=== PATIENT | male | born 1955 | race Caucasian/White ===

== ENCOUNTER 2017-05-25 22:56 | Emergency (ER) | payer OTHER ==
[2017-05-25 23:11] VITALS: RESP 18; TEMP 98.6
[2017-05-25] MEDS ORDERED: DIPH,PERTUS(ACELL)TETVAC-LF 0.5 ML VIAL IM ONE (23:23)
--- NOTE | 2017-05-25 23:23 | ED ---
General Adult HPI - General Chief complaint: Alcohol Stated complaint: ETOH,fall Time Seen by Provider: 05/25/17 22:58 Source: EMS, RN notes reviewed Mode of arrival: EMS Limitations: no limitations - History of Present Illness Initial comments: 62-year-old male presents to the emergency department with a chief complaint of alcohol intoxication fall. He does not know how he fell he believes that he has fallen. He denies any other injury he denies any pain at this time. Patient appears intoxicated he is a poor historian. He denies any pain or discomfort he denies any complaints. Patient denies any recent fever, chills, shortness of breath, chest pain, back pain, abdominal pain, nausea vomiting, numbness or tingling, dysuria or hematuria, constipation or diarrhea, headaches or visual changes, or any other current symptoms. - Related Data Home Medications Medication Instructions Recorded Confirmed Benztropine Mesylate 1 mg PO HS 12/10/13 12/11/15 Niacin [Niacin ER] 1,000 mg PO HS 12/10/13 12/11/15 Primidone [Mysoline] 50 mg PO BID 12/10/13 12/11/15 risperiDONE 3 mg PO HS 12/10/13 12/11/15 Thiamine [Vitamin B-1] 100 mg PO DAILY 12/27/14 12/11/15 Ferrous Sulfate [Feosol] 325 mg PO DAILY 12/11/15 12/11/15 Allergies Allergy/AdvReac Type Severity Reaction Status Date / Time No Known Allergies Allergy Verified 05/25/17 23:09 Review of Systems ROS Statement: Those systems with pertinent positive or pertinent negative responses have been documented in the HPI. ROS Other: All systems not noted in ROS Statement are negative. Past Medical History Past Medical History: Hyperlipidemia Additional Past Medical History / Comment(s): Parkinson's, ETOH abused, smoker History of Any Multi-Drug Resistant Organisms: None Reported Past Surgical History: No Surgical Hx Reported Past Anesthesia/Blood Transfusion Reactions: No Reported Reaction Past Psychological History: Bipolar, Schizophrenia Smoking Status: Current every day smoker Past Alcohol Use History: Abuse, Daily, Heavy Past Drug Use History: Marijuana - Past Family History Father History Unknown: Yes Mother History Unknown: Yes Brother(s) Family Medical History: No Reported History Sister(s) Family Medical History: No Reported History General Exam Limitations: no limitations General appearance: alert, appears intoxicated Head exam: Present: other (Forehead laceration of 1 cm) Eye exam: Present: normal appearance, PERRL, EOMI. Absent: scleral icterus, conjunctival injection, periorbital swelling ENT exam: Present: normal exam, mucous membranes moist, other (Patient appears to have a lip laceration to the center of the lower lip) Neck exam: Present: normal inspection. Absent: tenderness, meningismus, lymphadenopathy Respiratory exam: Present: normal lung sounds bilaterally. Absent: respiratory distress, wheezes, rales, rhonchi, stridor Cardiovascular Exam: Present: regular rate, normal rhythm, normal heart sounds. Absent: systolic murmur, diastolic murmur, rubs, gallop, clicks Neurological exam: Present: alert Psychiatric exam: Present: normal affect, normal mood Skin exam: Present: warm, dry Course Vital Signs 05/25/17 23:01 Temperature 98.6 F Pulse Rate 84 Respiratory 18 Rate Blood Pressure 162/114 O2 Sat by Pulse 98 Oximetry - Reevaluation(s) Reevaluation #1: 05/26/17 01:19 Family is here at bedside and willing to take the patient home. We discussed what to watch for we did discuss return parameters were discussed they're taking medical legal risk for the patient. They stated they understood. Procedures - Procedures Initial comment: The skin was anesthetized with 1% lidocaine. The laceration was then cleansed with Betadine and irrigated with normal saline. The wound was inspected, and there was no evidence of injury to deep structures. No foreign body was noted in the wound. A total of 4 skin sutures were placed utilizing 6-0 nylon to a 2 cm laceration of the forehead The skin was anesthetized with 1% lidocaine. The laceration was then cleansed with Betadine and irrigated with normal saline. The wound was inspected, and there was no evidence of injury to deep structures. No foreign body was noted in the wound. A total of 4 skin sutures were placed utilizing 6-0 nylon to a 2 cm laceration of the right lower lip Medical Decision Making - Medical Decision Making 62-year-old male presents to the emergency department chief complaint of fall however the fall is on no name the patient is a poor historian. He does appear to have facial laceration. This time CAT scans were reviewed. We discussed results with family. This time patient underwent suture care. We discussed follow-up we discussed return parameters all the patient's and family's questions. We discussed nursing home. They stated the [facility] they are in agreement this plan. All questions have been answered. This time the patient will be discharged home. Disposition Clinical Impression: Alcohol intoxication, Forehead laceration, Lip laceration, Head injury Disposition: HOME SELF-CARE Condition: Stable Instructions: Alcohol Intoxication (ED), Head Injury (ED), Care For Your Stitches (ED) Additional Instructions: Please use medication as discussed. Please follow up with family doctor if symptoms have not improved over the next two days. Please return to the emergency room if your symptoms increase or worsen or for any other concerns. Please return to the emergency room in 8-10 days to have sutures removed. Please leave wound covered for the first 24-48 hours and then leave open to air after that time. Please use clean soap and water to clean the suture area to prevent scabbing over the top of your sutures. Please watch for any signs of infection which may include but not limited to increased pain, swelling, redness , fever or chills. Please return to the emergency room if any signs of infection do occur. Please return to the emergency room for any other concerns or complications. Referrals: Vinicio Avila DO [Primary Care Provider] - 1-2 days Time of Disposition: 01:19
--- NOTE | 2017-05-25 23:52 | CT ---
EXAMINATION TYPE: CT brain gely singh DATE OF EXAM: 05/25/2017 COMPARISON: NONE HISTORY: fall, ETOH CT DLP: head-1748.60 body-493.70 mGycm Automated exposure control for dose reduction was used. TECHNIQUE: CT scan of the head and cervical spine are performed without contrast. FINDINGS: There is cerebral cortical atrophy. There is no mass effect nor midline shift. There is n o sign of intracranial hemorrhage. The calvarium is intact. Cervical vertebra have normal alignment. There is hypertrophic anterior spurring from C5 to T1. Poste rior elements are intact. There is multilevel hypertrophic facet arthropathy. There is no evidence of a fracture. There is fusion anomaly of C2 and C3 vertebral body. IMPRESSION: Cerebral atrophy. No acute intracranial abnormality. No change compared to 12/11/2015. Mild multilevel spondylosis in the cervical spine. No fracture.
--- NOTE | 2017-05-25 23:53 | CT ---
EXAMINATION TYPE: CT facial bones wo con DATE OF EXAM: 05/25/2017 COMPARISON: NONE HISTORY: fall, ETOH CT DLP: head-1748.60 body-493.70 mGycm Automated exposure control for dose reduction was used. TECHNIQUE: CT scan of the sinuses is performed without contrast, axial images are obtained, coronal r eformatted images are also reviewed. FINDINGS: There is bilateral patency of the ostiomeatal complex. There is fairly normal development a nd aeration of the paranasal sinuses. There is no evidence of a blowout fracture. Orbital margins are intact. The maxilla is intact. The mandibular ring is intact. Nasal bone appears intact. Zygomatic a rches appear normal. IMPRESSION: Negative CT scan of the facial bones. No evidence of traumatic injury.
[2017-05-26 01:56] VITALS: BP 170/94; PULSE 91
== END 2017-05-26 01:52 | disposition home or self-care (01) ==
LOC: EC 22:56
DX: S01.81XA Laceration without foreign body of other part of head, initial encounter (principal); S01.511A Laceration without foreign body of lip, initial encounter; F10.129 Alcohol abuse with intoxication, unspecified; G20 Parkinson's disease; F20.9 Schizophrenia, unspecified; F31.9 Bipolar disorder, unspecified; F17.200 Nicotine dependence, unspecified, uncomplicated; Z79.899 Other long term (current) drug therapy; Z23 Encounter for immunization; W19.XXXA Unspecified fall, initial encounter; Y92.009 Unspecified place in unspecified non-institutional (private) residence as the place of occurrence of the external cause
CPT/HCPCS: 12013; 70450; 70486; 72125; 82075; 90471; 90715; 99284

== ENCOUNTER 2017-08-25 19:35 | Emergency (ER) | payer OTHER ==
[2017-08-25 19:53] VITALS: BP 118/71; TEMP 98.2
[2017-08-25 20:18] VITALS: PULSE 85
[2017-08-25 20:26] LABS: Basophils % (A) 0 %; Eosinophils # (A) 0.1 k/uL (0-0.7); Eosinophils % (A) 1 %; HCT 44.6 % (39.0-53.0); HGB 15.6 gm/dL (13.0-17.5); Lymphocytes # (A) 1.7 k/uL (1.0-4.8); Lymphocytes % (A) 18 %; MCH 31.7 pg (25.0-35.0); MCHC 34.9 g/dL (31.0-37.0); MCV 90.9 fL (80.0-100.0); Mean Platelet Volume 7.4; Monocytes # (A) 0.6 k/uL (0-1.0); Monocytes % (A) 6 %; Neutrophils # (A) 6.8 k/uL (1.3-7.7); Neutrophils % (A) 72 %; Platelet Count 236 k/uL (150-450); RDW 13.3 % (11.5-15.5); WBC 9.4 k/uL (3.8-10.6)
[2017-08-25 20:34] LABS: Anion Gap 16 mmol/L; Blood Urea Nitrogen 8 mg/dL (9-20); Calcium 9.2 mg/dL (8.4-10.2); Carbon Dioxide 23 mmol/L (22-30); Chloride 101 mmol/L (98-107); Glucose 99 mg/dL (74-99); Potassium 4.5 mmol/L (3.5-5.1); Sodium 140 mmol/L (137-145)
[2017-08-25 20:47] LABS: Alcohol 341 mg/dL
--- NOTE | 2017-08-25 21:39 | CT ---
EXAMINATION TYPE: CT brain gely singh DATE OF EXAM: 08/25/2017 COMPARISON: 05/25/2017 HISTORY: Fall. CT DLP: 1678.9 mGycm Automated exposure control for dose reduction was used. TECHNIQUE: CT scan of the head and cervical spine are performed without contrast. FINDINGS: There is mild cerebral cortical atrophy. There is no mass effect nor midline shift. There is no sign of intracranial hemorrhage. The calvarium is intact. The cervical vertebra have normal alignment. There is anterior spurring from C3 to C7. Posterior [place] ents are intact. There is multilevel mild hypertrophic facet arthropathy. The skull base is intact. IMPRESSION: Cerebral atrophy. No acute intracranial abnormality. Spondylotic changes in the cervical spine. No fracture. There is no adverse change compared to old CT scan.
[2017-08-25 21:43] VITALS: RESP 16
--- NOTE | 2017-08-25 23:27 | ED ---
General Adult HPI - General Chief complaint: Alcohol Stated complaint: ETOH Time Seen by Provider: 08/25/17 19:38 Source: patient, EMS Mode of arrival: EMS Limitations: altered mental status - History of Present Illness Initial comments: 62-year-old male with past medical history of alcohol abuse presented for evaluation of a cough intoxication with fall. His daughter states that she was with him when he had shaking/tremors however he was alert and oriented while this was happening. He then became unstable and fell to the ground. He hit the front of his head on the ground however there was no loss of consciousness. She called EMS in order to have him evaluated. It is tender also noted to have a broken furnace and there is concern for carbon monoxide poisoning. Patient states that he has been drinking alcohol daily for years however today he had twice as much as he normally does. He denies any other injuries or pain at this time. - Related Data Home Medications Medication Instructions Recorded Confirmed Benztropine Mesylate 1 mg PO HS 12/10/13 12/11/15 Niacin [Niacin ER] 1,000 mg PO HS 12/10/13 12/11/15 Primidone [Mysoline] 50 mg PO BID 12/10/13 12/11/15 risperiDONE 3 mg PO HS 12/10/13 12/11/15 Thiamine [Vitamin B-1] 100 mg PO DAILY 12/27/14 12/11/15 Ferrous Sulfate [Feosol] 325 mg PO DAILY 12/11/15 12/11/15 Allergies Allergy/AdvReac Type Severity Reaction Status Date / Time No Known Allergies Allergy Verified 08/25/17 23:15 Review of Systems ROS Statement: Those systems with pertinent positive or pertinent negative responses have been documented in the HPI. ROS Other: All systems not noted in ROS Statement are negative. Constitutional: Reports: other (Intoxicated). Denies: fever, chills Eyes: Denies: eye pain, eye discharge, vision change ENT: Denies: ear pain, throat pain Respiratory: Denies: cough, dyspnea Cardiovascular: Denies: chest pain, palpitations Endocrine: Denies: fatigue, polydipsia, polyuria Gastrointestinal: Denies: abdominal pain, nausea, vomiting Genitourinary: Denies: urgency, dysuria Musculoskeletal: Denies: back pain, arthralgia, myalgia Skin: Reports: lesions (Abrasion to the right side of the forehead). Denies: rash Neurological: Denies: headache, weakness Psychiatric: Denies: anxiety, depression Hematological/Lymphatic: Denies: easy bleeding, easy bruising Past Medical History Past Medical History: Hyperlipidemia Additional Past Medical History / Comment(s): Parkinson's, ETOH abused, smoker History of Any Multi-Drug Resistant Organisms: None Reported Past Surgical History: No Surgical Hx Reported Past Anesthesia/Blood Transfusion Reactions: No Reported Reaction Past Psychological History: Bipolar, Schizophrenia Smoking Status: Current every day smoker Past Alcohol Use History: Abuse, Daily, Heavy Past Drug Use History: Marijuana - Past Family History Father History Unknown: Yes Mother History Unknown: Yes Brother(s) Family Medical History: No Reported History Sister(s) Family Medical History: No Reported History General Exam Limitations: altered mental status General appearance: alert, appears intoxicated Head exam: Present: atraumatic, normocephalic, normal inspection Eye exam: Present: normal appearance, PERRL, EOMI. Absent: scleral icterus, conjunctival injection, periorbital swelling ENT exam: Present: normal exam, mucous membranes moist Neck exam: Present: normal inspection. Absent: tenderness, meningismus, lymphadenopathy Respiratory exam: Present: normal lung sounds bilaterally. Absent: respiratory distress, wheezes, rales, rhonchi, stridor Cardiovascular Exam: Present: regular rate, normal rhythm, normal heart sounds. Absent: systolic murmur, diastolic murmur, rubs, gallop, clicks GI/Abdominal exam: Present: soft, normal bowel sounds. Absent: distended, tenderness, guarding, rebound, rigid Rectal exam: Present: deferred Extremities exam: Present: normal inspection, full ROM, normal capillary refill. Absent: tenderness, pedal edema, joint swelling, calf tenderness Back exam: Present: normal inspection, full ROM. Absent: tenderness Neurological exam: Present: alert, abnormal gait, other (Grossly intoxicated) Psychiatric exam: Present: normal affect, normal mood Skin exam: Present: warm, dry, intact, normal color. Absent: rash Course Vital Signs 08/25/17 08/25/17 08/25/17 19:50 20:18 21:41 Temperature 98.2 F Pulse Rate 85 Respiratory 20 16 Rate Blood Pressure 118/71 O2 Sat by Pulse 93 L Oximetry 08/25/17 23:14 Temperature Pulse Rate Respiratory 16 Rate Blood Pressure O2 Sat by Pulse Oximetry Medical Decision Making - Medical Decision Making 62-year-old alcoholic male presented for evaluation of fall from standing. On physical examination the patient is grossly intoxicated however alert and oriented and able to voice his excess drinking today and lack of any other injuries. Physical exam reveals mild abrasion to the right forehead hour no other acute findings. CT head and neck performed without intravenous hemorrhage or fractures. Labs revealed no significant abnormalities with the exception of his alcohol level which was greater than 340. His daughter presented at the same time and was tested for carbon monoxide and levels were negligible. Given that they both live in the same home and that he has been drinking excess alcohol compared to his normal baseline his level was not checked. His daughter came to the bedside and stated that she would take him to her brother's home where he would sleep on the couch given that they were advised to return to the home. Further given return instructions to come back to the ED if his symptoms should worsen or persist. The patient and his daughter acknowledged an understanding of all patient provided and agreed with this plan of care. - Lab Data Result diagrams: 08/25/17 20:10 08/25/17 20:10 Lab Results 08/25/17 08/25/17 Range/Units 20:10 20:10 WBC 9.4 (3.8-10.6) k/uL RBC 4.90 (4.30-5.90) m/uL Hgb 15.6 (13.0-17.5) gm/dL Hct 44.6 (39.0-53.0) % MCV 90.9 (80.0-100.0) fL MCH 31.7 (25.0-35.0) pg MCHC 34.9 (31.0-37.0) g/dL RDW 13.3 (11.5-15.5) % Plt Count 236 (150-450) k/uL Neutrophils % 72 % Lymphocytes % 18 % Monocytes % 6 % Eosinophils % 1 % Basophils % 0 % Neutrophils # 6.8 (1.3-7.7) k/uL Lymphocytes # 1.7 (1.0-4.8) k/uL Monocytes # 0.6 (0-1.0) k/uL Eosinophils # 0.1 (0-0.7) k/uL Basophils # 0.0 (0-0.2) k/uL Sodium 140 (137-145) mmol/L Potassium 4.5 (3.5-5.1) mmol/L Chloride 101 (98-107) mmol/L Carbon Dioxide 23 (22-30) mmol/L Anion Gap 16 mmol/L BUN 8 L (9-20) mg/dL Creatinine 0.62 L (0.66-1.25) mg/dL Est GFR (CKD-EPI)AfAm >90 (>60 ml/min/1.73 sqM) Est GFR (CKD-EPI)NonAf >90 (>60 ml/min/1.73 sqM) Glucose 99 (74-99) mg/dL Calcium 9.2 (8.4-10.2) mg/dL Serum Alcohol 341 mg/dL Disposition Clinical Impression: Alcohol intoxication, Abrasion, Fall Disposition: HOME SELF-CARE Condition: Stable Instructions: Alcohol Intoxication (ED) Referrals: Vinicio Avila DO [Primary Care Provider] - 1-2 days Time of Disposition: 23:17
== END 2017-08-25 23:30 | disposition home or self-care (01) ==
LOC: EC 19:35
DX: S00.81XA Abrasion of other part of head, initial encounter (principal); F10.129 Alcohol abuse with intoxication, unspecified; G20 Parkinson's disease; F20.9 Schizophrenia, unspecified; F31.9 Bipolar disorder, unspecified; F17.200 Nicotine dependence, unspecified, uncomplicated; Z79.899 Other long term (current) drug therapy; W18.00XA Striking against unspecified object with subsequent fall, initial encounter
CPT/HCPCS: 36415; 70450; 72125; 80048; 80320; 85025; 99284

== ENCOUNTER 2018-01-24 23:39 | Inpatient (IN) | payer OTHER ==
[2018-01-25] MEDS ORDERED: SODIUM CHLORIDE 0.9% 1,000 ML IV STA (00:07)
--- NOTE | 2018-01-25 00:12 | ED ---
Seizure HPI - General Chief Complaint: Seizure Stated Complaint: seizure Time Seen by Provider: 01/24/18 23:45 Source: patient, EMS Mode of arrival: EMS Limitations: altered mental status - History of Present Illness Initial Comments: 62-year-old male patient is brought in by EMS for evaluation after having a seizure. Patient does have history of chronic alcohol abuse and developed seizures about 6 months ago. Daughter reports that he has had 4 episodes of seizure activity since April. States that she came home from work today when she opened the door patient was on the floor shaking and appearing to be having a seizure. States that once is taking ceased patient did become alert and was able to answer her questions. Patient states that he probably fell down. Daughter reports that he appeared to have used the bathroom just shortly prior to her arrival home. Patient did lose bladder control. Patient also has a history of Parkinson's disease and has not had his medication for the last 3 days due to an issue with [facility]. Daughter states that his balance has been off recently and he has been falling. Patient is drowsy during exam and not a very good historian. Patient admits to drinking alcohol today. Daughter reports that he has been trying to cut down on drinking. She also reports that he did have follow up appointments with neurology who state he does not have epilepsy that his seizures were most likely related to alcohol. Patient denies any current headache, neck pain, back pain, chest pain, or shortness of breath. Patient denies any recent rash, fever , chills, abdominal pain, nausea, vomiting, diarrhea, constipation, numbness, tingling, dizziness, weakness, hematuria, dysuria, urinary urgency, urinary frequency, visual changes, or any other complaints. - Related Data Home Medications Medication Instructions Recorded Confirmed Benztropine Mesylate 1 mg PO HS 12/10/13 01/25/18 Niacin [Niacin ER] 1,000 mg PO HS 12/10/13 01/25/18 risperiDONE 3 mg PO HS 12/10/13 01/25/18 Thiamine [Vitamin B-1] 100 mg PO DAILY 12/27/14 01/25/18 Ferrous Sulfate [Feosol] 325 mg PO DAILY 12/11/15 01/25/18 Budesonide/Formoterol Fumarate 1 puff INHALATION RT-BID 08/25/17 08/25/17 [Symbicort 80-4.5 Mcg Inhaler] Cholecalciferol (Vitamin D3) 2,000 unit PO DAILY 08/25/17 01/25/18 [Vitamin D3] Primidone [Mysoline] 50 mg PO BID 01/25/18 01/25/18 Allergies Allergy/AdvReac Type Severity Reaction Status Date / Time No Known Allergies Allergy Verified 01/24/18 23:51 Review of Systems ROS Statement: Those systems with pertinent positive or pertinent negative responses have been documented in the HPI. ROS Other: All systems not noted in ROS Statement are negative. Past Medical History Past Medical History: Hyperlipidemia Additional Past Medical History / Comment(s): Parkinson's, ETOH abused, smoker History of Any Multi-Drug Resistant Organisms: None Reported Past Surgical History: No Surgical Hx Reported Past Anesthesia/Blood Transfusion Reactions: No Reported Reaction Past Psychological History: Bipolar, Schizophrenia Smoking Status: Current every day smoker Past Alcohol Use History: Abuse, Daily, Heavy Past Drug Use History: Marijuana - Past Family History Father History Unknown: Yes Mother History Unknown: Yes Brother(s) Family Medical History: No Reported History Sister(s) Family Medical History: No Reported History General Exam Limitations: altered mental status General appearance: alert, in no apparent distress, other (This is a thin appearing adult male who is quite disheveled. Patient's most strongly of urine. Vital signs upon presentation are temperature 97.5F, pulse 86, respirations 18, blood pressure 119/73, pulse ox 97% on room air.) Eye exam: Present: normal appearance, PERRL, EOMI. Absent: scleral icterus, conjunctival injection, nystagmus, periorbital swelling ENT exam: Present: normal exam, normal oropharynx, mucous membranes moist Neck exam: Present: normal inspection, full ROM. Absent: tenderness, meningismus, lymphadenopathy Respiratory exam: Present: normal lung sounds bilaterally. Absent: respiratory distress, wheezes, rales, rhonchi, stridor Cardiovascular Exam: Present: regular rate, normal rhythm, normal heart sounds. Absent: systolic murmur, diastolic murmur, rubs, gallop, clicks GI/Abdominal exam: Present: soft, normal bowel sounds. Absent: distended, tenderness, guarding, rebound, rigid Neurological exam: Present: alert, CN II-XII intact, other (Doesn't follow commands very well. Strength in all 4 extremities is 4/5.). Absent: oriented X3 (oriented x2) Psychiatric exam: Present: normal affect, normal mood Skin exam: Present: warm, dry, intact, normal color. Absent: rash Course Vital Signs 01/24/18 01/25/18 01/25/18 23:48 01:05 01:57 Temperature 97.5 F L 98.0 F Pulse Rate 86 82 77 Respiratory 18 19 16 Rate Blood Pressure 118/73 105/64 108/48 O2 Sat by Pulse 97 94 L 78 L Oximetry Medical Decision Making - Medical Decision Making 62-year-old nail patient presented to the emergency department today for evaluation after having what sounds like a seizure at home. Upon evaluation patient is somewhat disoriented and slow to respond to questions. Patient is otherwise neurologically intact. Labs reviewed and were unremarkable other than his alcohol level being 400. Drug screen was positive for THC. EKG showed normal sinus rhythm. CT brain and C-spine were performed due to patient expressing a fall, there are no acute findings per Patient will be admitted to the hospital for acute alcohol intoxication. A banana bag and Ativan protocol for alcohol withdrawal be provided. Patient has also been out of his primidone for the last 3 days, this has been restarted here. - Lab Data Result diagrams: 01/25/18 00:19 01/25/18 00:19 Lab Results 01/25/18 01/25/18 01/25/18 Range/Units 00:19 00:19 00:19 WBC 8.8 (3.8-10.6) k/uL RBC 4.79 (4.30-5.90) m/uL Hgb 14.9 (13.0-17.5) gm/dL Hct 46.2 (39.0-53.0) % MCV 96.5 (80.0-100.0) fL MCH 31.2 (25.0-35.0) pg MCHC 32.4 (31.0-37.0) g/dL RDW 14.0 (11.5-15.5) % Plt Count 188 (150-450) k/uL Neutrophils % 72 % Lymphocytes % 18 % Monocytes % 7 % Eosinophils % 1 % Basophils % 0 % Neutrophils # 6.3 (1.3-7.7) k/uL Lymphocytes # 1.6 (1.0-4.8) k/uL Monocytes # 0.6 (0-1.0) k/uL Eosinophils # 0.1 (0-0.7) k/uL Basophils # 0.0 (0-0.2) k/uL Sodium 139 (137-145) mmol/L Potassium 4.3 (3.5-5.1) mmol/L Chloride 107 (98-107) mmol/L Carbon Dioxide 19 L (22-30) mmol/L Anion Gap 13 mmol/L BUN 6 L (9-20) mg/dL Creatinine 0.50 L (0.66-1.25) mg/dL Est GFR (CKD-EPI)AfAm >90 (>60 ml/min/1.73 sqM) Est GFR (CKD-EPI)NonAf >90 (>60 ml/min/1.73 sqM) Glucose 84 (74-99) mg/dL Calcium 8.6 (8.4-10.2) mg/dL Total Bilirubin 0.4 (0.2-1.3) mg/dL AST 60 H (17-59) U/L ALT 40 (21-72) U/L Alkaline Phosphatase 81 (38-126) U/L Total Protein 6.9 (6.3-8.2) g/dL Albumin 4.1 (3.5-5.0) g/dL Urine Color Colorless Urine Appearance Clear (Clear) Urine pH 5.0 (5.0-8.0) Ur Specific [place] 1.002 (1.001-1.035) Urine Protein Negative (Negative) Urine Glucose (UA) Negative (Negative) Urine Ketones Negative (Negative) Urine Blood Negative (Negative) Urine Nitrite Negative (Negative) Urine Bilirubin Negative (Negative) Urine Urobilinogen <2.0 (<2.0) mg/dL Ur Leukocyte Esterase Negative (Negative) Urine Opiates Screen Not Detected (NotDetected) Ur Oxycodone Screen Not Detected (NotDetected) Urine Methadone Screen Not Detected (NotDetected) Ur Propoxyphene Screen Not Detected (NotDetected) Ur Barbiturates Screen Not Detected (NotDetected) U Tricyclic Antidepress Not Detected (NotDetected) Ur Phencyclidine Scrn Not Detected (NotDetected) Ur Amphetamines Screen Not Detected (NotDetected) U Methamphetamines Scrn Not Detected (NotDetected) U Benzodiazepines Scrn Not Detected (NotDetected) Urine Cocaine Screen Not Detected (NotDetected) U Marijuana (THC) Screen Detected H (NotDetected) Serum Alcohol 400 mg/dL - EKG Data -: EKG Interpreted by Me EKG Comments: EKG obtained at 0016 shows normal sinus rhythm with a ventricular rate of 76, OK interval 174, QR adventist 94, QT 398, QTC 447. No evidence of ST elevation or depression. - Radiology Data Radiology results: report reviewed, image reviewed CT of the head and cervical spine are performed without contrast. Report is reviewed in its entirety. Impression by Dr. Sanchez shows cerebral atrophy. No acute intracranial abnormality. No change. Mild spondylotic changes of the cervical spine. No fracture. Disposition Clinical Impression: Seizure, Alcohol intoxication Disposition: ADMITTED IP TO THIS [facility] Condition: Serious Decision to Admit Reason: Admit from EC Decision Date: 01/25/18 Decision Time: 01:13
[2018-01-25 00:28] LABS: Basophils % (A) 0 %; Eosinophils # (A) 0.1 k/uL (0-0.7); Eosinophils % (A) 1 %; HCT 46.2 % (39.0-53.0); HGB 14.9 gm/dL (13.0-17.5); Lymphocytes # (A) 1.6 k/uL (1.0-4.8); Lymphocytes % (A) 18 %; MCH 31.2 pg (25.0-35.0); MCHC 32.4 g/dL (31.0-37.0); MCV 96.5 fL (80.0-100.0); Mean Platelet Volume 7.9; Monocytes # (A) 0.6 k/uL (0-1.0); Monocytes % (A) 7 %; Neutrophils # (A) 6.3 k/uL (1.3-7.7); Neutrophils % (A) 72 %; Platelet Count 188 k/uL (150-450); RBC 4.79 m/uL (4.30-5.90); WBC 8.8 k/uL (3.8-10.6)
[2018-01-25 00:29] LABS: Appearance,Urine Clear (Clear); Bilirubin,Urine Negative (Negative); Blood,Urine Negative (Negative); Color,Urine Colorless; Glucose,Urine (UA) Negative (Negative); Ketones,Urine Negative (Negative); Leukocyte Esterase,Urine Negative (Negative); Nitrite,Urine Negative (Negative); Protein,Urine Negative (Negative); Specific Gravity,Urine 1.002 (1.001-1.035); Urobilinogen,Urine <2.0 mg/dL (<2.0)
[2018-01-25 00:39] LABS: ALT 40 U/L (21-72); AST 60 U/L (17-59); Albumin 4.1 g/dL (3.5-5.0); Alkaline Phosphatase 81 U/L (38-126); Anion Gap 13 mmol/L; Blood Urea Nitrogen 6 mg/dL (9-20); Calcium 8.6 mg/dL (8.4-10.2); Carbon Dioxide 19 mmol/L (22-30); Chloride 107 mmol/L (98-107); Glucose 84 mg/dL (74-99); Sodium 139 mmol/L (137-145); Total Bilirubin 0.4 mg/dL (0.2-1.3); Total Protein 6.9 g/dL (6.3-8.2)
[2018-01-25 00:43] LABS: Amphetamine Screen,Urine Not Detected (NotDetected); Barbiturate Screen,Urine Not Detected (NotDetected); Benzodiazepines Screen,Urine Not Detected (NotDetected); Cocaine Screen,Urine Not Detected (NotDetected); Methadone Screen, Urine Not Detected (NotDetected); Opiate Screen,Urine Not Detected (NotDetected); Oxycodone Screen, Urine Not Detected (NotDetected); Phencyclidine Screen,Urine Not Detected (NotDetected); Tricyclic Antidepressant,Urine Not Detected (NotDetected); Urn Cannabinoid Scrn Detected (NotDetected)
[2018-01-25 00:49] LABS: Potassium 4.3 mmol/L (3.5-5.1)
[2018-01-25 00:50] LABS: Alcohol 400 mg/dL
--- NOTE | 2018-01-25 00:55 | CT ---
EXAMINATION TYPE: CT brain gely singh DATE OF EXAM: 01/25/2018 COMPARISON: August 25, 2017 HISTORY: seizure CT DLP: 1395.70 mGycm Automated exposure control for dose reduction was used. TECHNIQUE: CT scan of the head and cervical spine are performed without contrast. FINDINGS: There is cerebral cortical atrophy. There is no mass effect nor midline shift. There is n o sign of intracranial hemorrhage. The calvarium is intact. Cervical vertebra have normal alignment. There is spurring anteriorly from C4 to C7. There is hypertr ophic mild multilevel facet arthropathy. The skull base is intact. There is no evidence of a fracture . There is fusion anomaly of C2 and C3 vertebra. IMPRESSION: Cerebral atrophy. No acute intracranial abnormality. No change. Mild spondylotic changes in the cervical spine. No fracture.
[2018-01-25] MEDS ORDERED: NALOXONE 0.4 MG/ML 1 ML VIAL IV PRN (01:11)
[2018-01-25] MEDS ORDERED: THIAMINE 100 MG/ML 2 ML VIAL IM STA (01:12)
[2018-01-25] MEDS ORDERED: SODIUM CHLORIDE 0.9% 1,000 ML with MVI, ADULT NO.4 WITH VIT K 10 ML, THIAMINE 100 MG, F... IV ONE ×4 (01:30)
[2018-01-25] MEDS: CHOLECALCIFEROL 1,000 UNIT TAB PO SCH (07:50)
[2018-01-25] MEDS: PRIMIDONE 50 MG TAB PO SCH ×2 (07:51→20:36)
[2018-01-25] MEDS ORDERED: THIAMINE 100 MG TAB PO SCH (09:00)
[2018-01-25] MEDS ORDERED: FERROUS SULFATE 325 MG TAB PO SCH (09:00)
[2018-01-25] MEDS: LORazepam 2 MG/ML INJ IV PRN ×5 (10:01→15:21)
[2018-01-25 11:11] VITALS: BMI 24.3
[2018-01-25] MEDS ORDERED: IPRATROPIUM-ALBUTEROL 3 ML NEB INHALATION PRN (11:33)
--- NOTE | 2018-01-25 12:14 | P.HPIM ---
History of Present Illness 62-year-old male was brought in by the daughter to ER with concerns of seizure. Patient is alcohol intoxicated with 400. At this level of alcohol my suspicion is low that patient had a seizure had extensive discussion with the daughter. Patient apparently was on floor was tremulous unsure whether he was unconscious at the time but patient the was arousable and the was awake when she tried to wake him up. Patient doesn't have any bowel incontinence or tongue biting. May have had bladder incontinence. Patient drinks quite a bit although he sees he drinks only 24 ounces 3 beers a day as per the daughter he drinks quite a bit has been drinking for a long time. I discussed the patient patient to doesn't want to quit alcohol patient does smokes a pack a day does have wheezing minimal COPD exacerbation patient was started on inhaled steroids in the inhalational treatments. Along with doxycycline. Patient is already having withdrawals. He as he is not willing to quit alcohol I would normally's discharge him but because of his respiratory to status and wheezing on exam and patient looks quite lethargic because of these reasons, patient will stay in the hospital received breathing treatments inhaled steroids will treat him with medical for withdrawals extensive counseling to the family was provided and family asked to provide support after his discharge regarding his alcohol. Patient doesn't have any fever chills. I will obtain a chest x-ray to make sure there is no aspiration pneumonia, patient doesn't have any leukocytosis no fever Review of Systems REVIEW OF SYSTEMS: CONSTITUTIONAL: No fever, no malaise, no fatigue. HEENT: No recent visual problems or hearing problems. Denied any sore throat. CARDIOVASCULAR: No chest pain, orthopnea, PND, no palpitations, no syncope. PULMONARY: No shortness of breath, no cough, no hemoptysis. GASTROINTESTINAL: No diarrhea, no nausea, no vomiting, no abdominal pain. Normoactive bowel sounds. NEUROLOGICAL: No headaches, no weakness, no numbness. HEMATOLOGICAL: Denies any bleeding or petechiae. GENITOURINARY: Denies any burning micturition, frequency, or urgency. MUSCULOSKELETAL/RHEUMATOLOGICAL: Denies any joint pain, swelling, or any muscle pain. ENDOCRINE: Denies any polyuria or polydipsia. The rest of the 14-point review of systems is negative. Past Medical History Past Medical History: Hyperlipidemia Additional Past Medical History / Comment(s): Parkinson's, ETOH abused, smoker History of Any Multi-Drug Resistant Organisms: None Reported Past Surgical History: Appendectomy Additional Past Surgical History / Comment(s): Cyst removal from right wrist Past Anesthesia/Blood Transfusion Reactions: No Reported Reaction Past Psychological History: Bipolar, Schizophrenia Smoking Status: Current every day smoker Past Alcohol Use History: Abuse, Daily, Heavy Past Drug Use History: Marijuana - Past Family History Father History Unknown: Yes Mother History Unknown: Yes Brother(s) Family Medical History: No Reported History Sister(s) Family Medical History: No Reported History Medications and Allergies Home Medications Medication Instructions Recorded Confirmed Type Benztropine Mesylate 1 mg PO HS 12/10/13 01/25/18 History Niacin [Niacin ER] 1,000 mg PO HS 12/10/13 01/25/18 History risperiDONE 3 mg PO HS 12/10/13 01/25/18 History Thiamine [Vitamin B-1] 100 mg PO DAILY 12/27/14 01/25/18 History Ferrous Sulfate [Feosol] 325 mg PO DAILY 12/11/15 01/25/18 History Budesonide/Formoterol Fumarate 1 puff INHALATION RT-BID 08/25/17 08/25/17 History [Symbicort 80-4.5 Mcg Inhaler] Cholecalciferol (Vitamin D3) 2,000 unit PO DAILY 08/25/17 01/25/18 History [Vitamin D3] Primidone [Mysoline] 50 mg PO BID 01/25/18 01/25/18 History Allergies Allergy/AdvReac Type Severity Reaction Status Date / Time No Known Allergies Allergy Verified 01/24/18 23:51 Physical Exam Vitals: Vital Signs Temp Pulse Pulse Resp BP BP Pulse Ox 01/25/18 11:11 94 16 01/25/18 05:00 97.3 F L 123 H 16 97/52 91 L 01/25/18 03:25 97.6 F 88 20 105/58 96 01/25/18 01:57 98.0 F 77 16 108/48 97 01/25/18 01:05 82 19 105/64 94 L 01/24/18 23:48 97.5 F L 86 18 118/73 97 Intake and Output 01/24/18 01/25/18 01/25/18 22:59 06:59 14:59 Intake Total 400 Output Total 1000 1000 Balance -1000 -600 Intake: Oral 400 Output: Urine 1000 1000 Other: Voiding Method Urinal Weight 72.575 kg 72.575 kg -Alcoholic withdrawal: Patient is on CIWA Ativan protocol. Patient is on seizure precautions IV fluids thiamine multivitamin supplementation patient is here via score is very high. Patient may need to be transferred to ICU. -COPD with minimal exacerbation possible tracheal bronchitis patient is wheezing on exam patient was started on inhaled steroids and inhalational treatments. -Possible seizure : suspicion is low that patient had a seizure episode patient was diagnosed with all call withdrawal seizures in the past he cannot obtain EEG when his so tremulous and when he is having all call withdraws. -Nicotine abuse: Counseling was provided -Rule out aspiration pneumonia: Will obtain a chest x-ray -History of psychosis patient is on risperidone benztropine will be discontinued with concern for seizures -Tachycardia seconded all call withdrawal. Results CBC & Chem 7: 01/25/18 00:19 01/25/18 00:19 Labs: Abnormal Lab Results - Last 24 Hours (Table) 01/25/18 01/25/18 Range/Units 00:19 00:19 Carbon Dioxide 19 L (22-30) mmol/L BUN 6 L (9-20) mg/dL Creatinine 0.50 L (0.66-1.25) mg/dL AST 60 H (17-59) U/L U Marijuana (THC) Screen Detected H (NotDetected) Thrombosis Risk Factor Assmnt - Choose All That Apply Any of the Below Risk Factors Present?: No Other Risk Factors: Yes Each Risk Factor Represents 2 Points: Age 61-74 years Thrombosis Risk Factor Assessment Total Risk Factor Score: 2 Thrombosis Risk Factor Assessment Level: Low Risk
--- NOTE | 2018-01-25 12:32 | XR ---
EXAMINATION TYPE: XR chest 1V DATE OF EXAM: 01/25/2018 COMPARISON: 12/11/2015 HISTORY: 62-year-old male rule out aspiration, cough and congestion TECHNIQUE: Single frontal view of the chest is obtained. FINDINGS: Heart normal size. Mild elongation thoracic aorta. Mild peribronchial cuffing and mild interstitial prominence. No consolidation or pleural effusion. There appears to be a healed fracture deformity of the left lateral seventh rib but possible acute jasmine bacute fracture of the left posterolateral eighth rib. IMPRESSION: 1. New peribronchial cuffing and interstitial prominence. Correlate for etiologies like bronchitis or asthma. 2. Clinically correlate. There seems to be an acute or subacute fracture of the posterolateral left e ighth rib.
[2018-01-25] MEDS: PANTOPRAZOLE 40 MG/10 ML VIAL IVP SCH (13:08)
[2018-01-25] MEDS: SODIUM CHLORIDE 0.9% 1,000 ML IV SCH ×2 (13:08→23:00)
[2018-01-25] MEDS: DOXYCYCLINE MONOHYDRATE 100 MG CAPSULE PO SCH ×2 (13:08→20:36)
[2018-01-25 14:26] LABS: Glucose,Whole Blood 135 mg/dL (75-99)
--- NOTE | 2018-01-25 14:59 | P.CNPUL ---
History of Present Illness Consult date: 01/25/18 Requesting physician: Spencer Tay Reason for consult: other (Alcohol withdrawal) Chief complaint: Concerns about seizures History of present illness: This is a 62-year-old white male, heavy alcohol drinker, known history of alcohol abuse, smoker, history of Parkinson's disease, hyperlipidemia, patient was admitted on 01/25/2018 with acute alcohol intoxication, and EMS brought him into the ER after having a seizure. Patient is known to have history of seizures, his last seizure was 6 months ago. His seizure this time was witnessed by his daughter, patient was noted to be on the floor shaking, confused, unable to answer any questions, and supposedly developed some post ictal phase. Patient was also noted to be incontinent of urine. Patient himself is not a great historian upon presentation, but denies any specific complaint during my evaluation. Patient was initially admitted to a regular medical floor, however since he was receiving a significant amount of Ativan since admission for alcohol withdrawal, his admitting physician felt it would be best to monitor him in the ICU. I evaluated the patient in the ICU, presently asymptomatic, calm, not in any form of distress. Denies any headache no blurred vision no dizziness no nausea no vomiting no abdominal pain no melena no hematemesis no dysuria and no frequency no urgency. Review of Systems 14 point review of systems obtained, refer to HPI otherwise remaining systems are Past Medical History Past Medical History: Hyperlipidemia Additional Past Medical History / Comment(s): Parkinson's, ETOH abused, smoker History of Any Multi-Drug Resistant Organisms: None Reported Past Surgical History: Appendectomy Additional Past Surgical History / Comment(s): Cyst removal from right wrist Past Anesthesia/Blood Transfusion Reactions: No Reported Reaction Past Psychological History: Bipolar, Schizophrenia Smoking Status: Current every day smoker Past Alcohol Use History: Abuse, Daily, Heavy Past Drug Use History: Marijuana - Past Family History Father History Unknown: Yes Mother History Unknown: Yes Brother(s) Family Medical History: No Reported History Sister(s) Family Medical History: No Reported History Medications and Allergies Home Medications Medication Instructions Recorded Confirmed Type Benztropine Mesylate 1 mg PO HS 12/10/13 01/25/18 History Niacin [Niacin ER] 1,000 mg PO HS 12/10/13 01/25/18 History risperiDONE 3 mg PO HS 12/10/13 01/25/18 History Thiamine [Vitamin B-1] 100 mg PO DAILY 12/27/14 01/25/18 History Ferrous Sulfate [Feosol] 325 mg PO DAILY 12/11/15 01/25/18 History Budesonide/Formoterol Fumarate 2 puff INHALATION RT-BID 08/25/17 01/25/18 History [Symbicort 80-4.5 Mcg Inhaler] Cholecalciferol (Vitamin D3) 2,000 unit PO DAILY 08/25/17 01/25/18 History [Vitamin D3] Primidone [Mysoline] 50 mg PO BID 01/25/18 01/25/18 History Allergies Allergy/AdvReac Type Severity Reaction Status Date / Time No Known Allergies Allergy Verified 01/25/18 12:35 Physical Exam Vitals: Vital Signs Temp Pulse Pulse Resp BP BP Pulse Ox 01/25/18 14:25 98.6 F 90 23 134/75 95 01/25/18 11:11 94 16 01/25/18 05:00 97.3 F L 123 H 16 97/52 91 L 01/25/18 03:25 97.6 F 88 20 105/58 96 01/25/18 01:57 98.0 F 77 16 108/48 97 01/25/18 01:05 82 19 105/64 94 L 01/24/18 23:48 97.5 F L 86 18 118/73 97 Intake and Output 01/24/18 01/25/18 01/25/18 22:59 06:59 14:59 Intake Total 2440 Output Total 1000 1000 Balance -1000 1440 Intake: Intake, IV Titration 1000 Amount Sodium Chloride 0.9% 1, 1000 000 ml @ 100 mls/hr IV . Q10H7M ONE with Mvi, Adult No.4 with Vit K 10 ml with Thiamine 100 mg with Folic Acid 1 mg Rx#: [id number] Oral 1440 Output: Urine 1000 1000 Other: Voiding Method Urinal Weight 72.575 kg 72.575 kg Physical Exam: Revealed a 62-year-old white male in no distress. Head: Atraumatic, normocephalic. HEENT:[Neck is supple.] [No neck masses.] [No thyromegaly.] [No JVD.] PERRLA, EOMI, no icterus. Chest: [Clear throughout, no crackles, no rhonchi, no wheezes.] Cardiac Exam: [Normal S1 and S2, no S3 gallop, no murmur.] Abdomen: [Soft, nontender, no megaly, no rebound, no guarding, normal bowel sounds.] Extremities: [No clubbing, no edema, no cyanosis.] Neurological Exam: [No focal neurologic deficit.] Alert oriented 3. Lymphatics: No lymphadenopathy. Results - Laboratory Findings CBC and BMP: 01/25/18 00:19 01/25/18 00:19 Abnormal lab findings: Abnormal Labs 01/25/18 01/25/18 01/25/18:19 00:19 14:25 Carbon Dioxide 19 L BUN 6 L Creatinine 0.50 L POC Glucose (mg/dL) 135 H AST 60 H U Marijuana (THC) Screen Detected H - Diagnostic Findings Chest x-ray: image reviewed (No evidence of active disease, questionable subacute fracture of the posterior lateral left eighth rib) Assessment and Plan Assessment: Impression: 1 poorly controlled seizures, known history of seizure disorder. May or may not be related to alcohol or alcohol withdrawal. 2 suspect early alcohol withdrawal. 3 history of alcohol abuse and alcoholism. Recommendation: Agree with the present treatment plan, agree with monitoring the patient in the ICU, consider neurological evaluation for his seizures. We' ll continue to follow. Time with Patient: Greater than 30
[2018-01-25] MEDS ORDERED: ACETAMINOPHEN TAB 325 MG TAB PO PRN (15:03)
[2018-01-25] MEDS: IPRATROPIUM-ALBUTEROL 3 ML NEB INHALATION SCH ×3 (16:02→20:49)
[2018-01-25] MEDS: THIAMINE 100 MG TAB PO SCH (16:34)
[2018-01-25] MEDS ORDERED: SYMBICORT 160-4.5 MCG INHALER INHALATION ONE (19:19)
[2018-01-25] MEDS: NIACIN TR 500 MG CAPSULE.ER PO SCH (20:36)
[2018-01-25] MEDS: risperiDONE 1 MG TAB PO SCH (20:36)
[2018-01-25] MEDS: SYMBICORT 160-4.5 MCG INHALER INHALATION SCH (20:49)
[2018-01-25] MEDS ORDERED: BENZTROPINE MESYLATE 1 MG TAB PO SCH (21:00)
[2018-01-26 05:50] LABS: Basophils % (A) 0 %; Eosinophils # (A) 0.1 k/uL (0-0.7); Eosinophils % (A) 1 %; HCT 38.4 % (39.0-53.0); HGB 12.6 gm/dL (13.0-17.5); Lymphocytes # (A) 1.2 k/uL (1.0-4.8); Lymphocytes % (A) 15 %; MCH 31.8 pg (25.0-35.0); MCHC 32.8 g/dL (31.0-37.0); Mean Platelet Volume 8.2; Monocytes # (A) 0.5 k/uL (0-1.0); Monocytes % (A) 6 %; Neutrophils # (A) 5.9 k/uL (1.3-7.7); Neutrophils % (A) 76 %; Platelet Count 143 k/uL (150-450); RBC 3.96 m/uL (4.30-5.90); RDW 13.7 % (11.5-15.5); WBC 7.7 k/uL (3.8-10.6)
[2018-01-26 06:02] LABS: ALT 42 U/L (21-72); AST 42 U/L (17-59); Albumin 3.1 g/dL (3.5-5.0); Alkaline Phosphatase 76 U/L (38-126); Anion Gap 4 mmol/L; Blood Urea Nitrogen 7 mg/dL (9-20); Carbon Dioxide 24 mmol/L (22-30); Chloride 106 mmol/L (98-107); Glucose 91 mg/dL (74-99); Phosphorus 3.4 mg/dL (2.5-4.5); Sodium 134 mmol/L (137-145); Total Bilirubin 0.7 mg/dL (0.2-1.3); Total Protein 5.5 g/dL (6.3-8.2)
--- NOTE | 2018-01-26 07:36 | XR ---
EXAMINATION TYPE: XR chest 1V portable DATE OF EXAM: 01/26/2018 Comparison: 01/25/2018 Clinical History: 62-year-old male shortness of breath Findings: Heart normal size. Mild elongation/ectasia of the thoracic aorta. Mild diffuse interstitial prominenc e with mild peribronchial cuffing persists. No consolidation or pleural effusion. The demonstrated fi ndings suspicious for a acute to subacute left posterolateral eighth rib fracture. Impression: Similar interstitial changes which can be seen with bronchitis or asthma. Again, possible acute or jasmine bacute fracture of the left posterolateral eighth rib.
[2018-01-26] MEDS: PRIMIDONE 50 MG TAB PO SCH ×2 (08:33→22:24)
[2018-01-26] MEDS: PANTOPRAZOLE 40 MG/10 ML VIAL IVP SCH (08:33)
[2018-01-26] MEDS: CHOLECALCIFEROL 1,000 UNIT TAB PO SCH (08:34)
[2018-01-26] MEDS: SYMBICORT 160-4.5 MCG INHALER INHALATION SCH ×2 (08:34→20:46)
[2018-01-26] MEDS: DOXYCYCLINE MONOHYDRATE 100 MG CAPSULE PO SCH ×2 (08:34→21:45)
[2018-01-26] MEDS: IPRATROPIUM-ALBUTEROL 3 ML NEB INHALATION SCH ×4 (08:34→20:46)
[2018-01-26] MEDS: SODIUM CHLORIDE 0.9% 1,000 ML IV SCH ×2 (08:38→19:26)
[2018-01-26] MEDS: FERROUS SULFATE 325 MG TAB PO SCH (12:29)
[2018-01-26] MEDS: THIAMINE 100 MG TAB PO SCH ×2 (12:29→18:06)
--- NOTE | 2018-01-26 13:03 | P.PN ---
Subjective Progress Note Date: 01/26/18 Principal diagnosis: Alcohol withdrawal and possible seizure This is a 62-year-old white male, heavy alcohol drinker, known history of alcohol abuse, smoker, history of Parkinson's disease, hyperlipidemia, patient was admitted on 01/25/2018 with acute alcohol intoxication, and EMS brought him into the ER after having a seizure. Patient is known to have history of seizures, his last seizure was 6 months ago. His seizure this time was witnessed by his daughter, patient was noted to be on the floor shaking, confused, unable to answer any questions, and supposedly developed some post ictal phase. Patient was also noted to be incontinent of urine. Patient himself is not a great historian upon presentation, but denies any specific complaint during my evaluation. Patient was initially admitted to a regular medical floor, however since he was receiving a significant amount of Ativan since admission for alcohol withdrawal, his admitting physician felt it would be best to monitor him in the ICU. I evaluated the patient in the ICU, presently asymptomatic, calm, not in any form of distress. Denies any headache no blurred vision no dizziness no nausea no vomiting no abdominal pain no melena no hematemesis no dysuria and no frequency no urgency. Patient was reevaluated today on 01/26/2018, doing well, very calm, asymptomatic, no seizure activity noted, patient is on the alcohol withdrawal protocol. Labs including CBC basic metabolic profile liver profile were all reviewed and noted. Objective - Vital Signs Vital signs: Vital Signs Temp 98.0 F 01/26/18 12:13 Pulse 76 01/26/18 12:27 Resp 18 01/26/18 12:13 BP 155/88 01/26/18 12:13 Pulse Ox 97 01/26/18 12:13 Intake & Output 01/25/18 01/26/18 01/26/18 18:59 06:59 18:59 Intake Total 2840 2020 600 Output Total 1275 1800 650 Balance 1565 220 -50 Weight 73.3 kg 74.3 kg 74.3 kg Intake: IV 400 1300 600 Sodium Chloride 0.9% 1, 400 1300 600 000 ml @ 100 mls/hr IV . Q10H [facility] Rx#:[id number] Intake, IV Titration 1000 Amount Sodium Chloride 0.9% 1, 1000 000 ml @ 100 mls/hr IV . Q10H7M ONE with Mvi, Adult No.4 with Vit K 10 ml with Thiamine 100 mg with Folic Acid 1 mg Rx#: [id number] Oral 1440 720 Output: Urine 1275 1800 650 Other: Voiding Method Urinal Urinal Urinal # Voids 1 - Exam Physical Exam: Revealed a 62-year-old white male in no distress. Head: Atraumatic, normocephalic. HEENT:[Neck is supple.] [No neck masses.] [No thyromegaly.] [No JVD.] PERRLA, EOMI, no icterus. Chest: [Clear throughout, no crackles, no rhonchi, no wheezes.] Cardiac Exam: [Normal S1 and S2, no S3 gallop, no murmur.] Abdomen: [Soft, nontender, no megaly, no rebound, no guarding, normal bowel sounds.] Extremities: [No clubbing, no edema, no cyanosis.] Neurological Exam: [No focal neurologic deficit.] Alert oriented 3. Lymphatics: No lymphadenopathy. - Labs CBC & Chem 7: 01/26/18 05:17 01/26/18 05:17 Labs: Abnormal Lab Results - Last 24 Hours (Table) 01/25/18 01/26/18 01/26/18 Range/Units 14:25 05:17 05:17 RBC 3.96 L (4.30-5.90) m/uL Hgb 12.6 L (13.0-17.5) gm/dL Hct 38.4 L (39.0-53.0) % Plt Count 143 L (150-450) k/uL Sodium 134 L (137-145) mmol/L BUN 7 L (9-20) mg/dL Creatinine 0.60 L (0.66-1.25) mg/dL POC Glucose (mg/dL) 135 H (75-99) mg/dL Calcium 8.0 L (8.4-10.2) mg/dL Total Protein 5.5 L (6.3-8.2) g/dL Albumin 3.1 L (3.5-5.0) g/dL Assessment and Plan Assessment: Impression: 1 poorly controlled seizures, known history of seizure disorder. May or may not be related to alcohol or alcohol withdrawal. 2 suspect early alcohol withdrawal. 3 history of alcohol abuse and alcoholism. Recommendation: Patient seems to be doing well, no major issues overnight in the ICU, remains on the alcohol withdrawal protocol, we will continue the same, continue seizure precautions, could be transferred out of the ICU to a regular medical floor. Time with Patient: Less than 30
[2018-01-26] MEDS: LORazepam 2 MG/ML INJ IV PRN ×2 (16:22→19:26)
--- NOTE | 2018-01-26 20:57 | P.CNNES ---
History of Present Illness Consult date: 01/26/18 Reason for Consult: Patient admitted for possible alcohol related seizures. History of Present Illness: This patient is a 62-year-old male with a long-standing history of alcohol abuse. Apparently he was found at home with ongoing tremor-like activity versus seizure activity by his daughter. There was no evidence any bowel or urinary incontinence and he did not bite his tongue. The patient states he drinks on a regular basis. He is not been through any drug rehabilitation program in the recent past. He is not willing to quit drinking according to the ER notes. He was brought into the emergency room at [facility] and seen by Dr. Azevedo. The patient was sent for a computed tomography scan of the brain which revealed cerebral atrophy. No evidence of acute intracranial abnormality. Computed tomography scan of the cervical spine revealed mild spondylitic changes with no acute fracture. The patient was subtly admitted to the hospital. He is a very poor historian. He does have some degree of neuropathic changes in his extremities likely related to his chronic alcohol abuse. He was started on a CIWA protocol and admitted to the hospital. Patient also has history of underlying bipolar disorder and schizophrenia. He has a history of psychosis and is being followed in the outpatient psychiatry clinic as well. He is being treated for his bipolar disorder and is taking Risperdal. He is currently on 3 mg at bedtime. The patient states he follows at the [place] clinic on a regular basis. He is not aware of his physician's name there. As noted the patient is a very poor historian. He has not had any further breakthrough seizures since being admitted to the hospital. Apparently yesterday evening when he was initially admitted to the intensive care unit is very much agitated and combative. He required restraints. Today he is doing better but still remains very confused. As noted he continues on a CIWA protocol. When questioned about his Parkinson's disease he is unable to give much detail. He is not on any specific parkinsonian medication. Patient's daughter was not available today to answer further details regarding his past history. Patient himself states he is able to function fairly well independently at home. It is unclear whether he also has a psychiatric history of schizophrenia in the past. Apparently the patient is on Risperdal for treatment of underlying bipolar disorder. We would recommend a psychiatry consultation for this patient. Since coming into the hospital he has had no further seizure-like events. As noted he is not on any specific anticonvulsant medications at this time. We would recommend that he be maintained on a CIWA protocol until the time of discharge. We are also recommending a social work consultation for this patient as he would be a good candidate for admission to [place] drug rehabilitation program. We will obtain a formal social work consultation for this reason. The patient is a very poor historian. He likely does have some degree of cognitive impairment. As noted his CAT scan of the brain did reveal cerebral atrophy. This patient's overall prognosis at this time remains very guarded. The patient is now admitted and neurology has been consulted for further evaluation and recommendations. Review of Systems Constitutional: Denies chills, Denies fever Eyes: denies blurred vision, denies pain Ears, nose, mouth and throat: Denies headache, Denies sore throat Cardiovascular: Denies chest pain, Denies shortness of breath Respiratory: Denies cough Gastrointestinal: Denies abdominal pain, Denies diarrhea, Denies nausea, Denies vomiting Musculoskeletal: Denies myalgias Integumentary: Denies pruritus, Denies rash Neurological: Reports ataxia, Reports balance difficulties, Reports change in mentation, Reports confusion, Reports convulsions, Reports headaches, Reports lack of coordination, Reports memory loss, Reports paresthesias, Reports seizures, Reports tingling, Denies numbness, Denies weakness Psychiatric: Reports change in sleep habits, Reports confusion, Reports disorientation, Reports memory loss Endocrine: Denies fatigue, Denies weight change Past Medical History Past Medical History: Hyperlipidemia Additional Past Medical History / Comment(s): Parkinson's, ETOH abused, smoker; seizures, started about 6 months ago History of Any Multi-Drug Resistant Organisms: None Reported Past Surgical History: Appendectomy Additional Past Surgical History / Comment(s): Cyst removal from right wrist Past Anesthesia/Blood Transfusion Reactions: No Reported Reaction Past Psychological History: Bipolar, Schizophrenia Smoking Status: Current every day smoker Past Alcohol Use History: Abuse, Daily, Heavy Past Drug Use History: Marijuana - Past Family History Father History Unknown: Yes Mother History Unknown: Yes Brother(s) Family Medical History: No Reported History Sister(s) Family Medical History: No Reported History Medications and Allergies Home Medications Medication Instructions Recorded Confirmed Type Benztropine Mesylate 1 mg PO HS 12/10/13 01/25/18 History Niacin [Niacin ER] 1,000 mg PO HS 12/10/13 01/25/18 History risperiDONE 3 mg PO HS 12/10/13 01/25/18 History Thiamine [Vitamin B-1] 100 mg PO DAILY 12/27/14 01/25/18 History Ferrous Sulfate [Feosol] 325 mg PO DAILY 12/11/15 01/25/18 History Budesonide/Formoterol Fumarate 2 puff INHALATION RT-BID 08/25/17 01/25/18 History [Symbicort 80-4.5 Mcg Inhaler] Cholecalciferol (Vitamin D3) 2,000 unit PO DAILY 08/25/17 01/25/18 History [Vitamin D3] Primidone [Mysoline] 50 mg PO BID 01/25/18 01/25/18 History Allergies Allergy/AdvReac Type Severity Reaction Status Date / Time No Known Allergies Allergy Verified 01/25/18 12:35 Physical Examination - Vital Signs Vital Signs: Vital Signs Temp Pulse Pulse Resp BP BP Pulse Ox 01/26/18 16:32 132/67 01/26/18 16:14 74 16 01/26/18 16:05 70 16 97 01/26/18 15:08 97.4 F L 69 18 171/81 98 01/26/18 13:00 74 20 01/26/18 12:27 76 01/26/18 12:18 73 01/26/18 12:13 98.0 F 82 18 155/88 97 01/26/18 12:00 18 01/26/18 10:00 150/87 01/26/18 09:00 87 21 150/87 95 01/26/18 08:47 88 01/26/18 08:34 87 01/26/18 08:00 70 21 155/84 97 01/26/18 07:00 63 14 160/85 96 01/26/18 06:00 65 16 145/76 99 01/26/18 05:00 73 10 L 155/87 98 01/26/18 04:00 97.8 F 67 17 140/82 97 01/26/18 03:56 94 14 01/26/18 03:00 68 14 109/75 97 01/26/18 02:00 70 14 153/81 97 01/26/18 01:00 67 25 H 130/74 98 01/26/18 00:00 98.2 F 81 17 131/70 98 01/25/18 23:05 94 18 01/25/18 23:00 74 16 120/76 95 01/25/18 22:00 77 18 145/75 98 01/25/18 21:13 75 01/25/18 21:00 76 25 H 163/92 98 01/25/18 20:51 75 Intake and Output 01/26/18 01/26/18 01/26/18 06:59 14:59 22:59 Intake Total 1140 600 Output Total 1550 650 450 Balance -410 -50 -450 Intake: IV 900 600 Sodium Chloride 0.9% 1, 900 600 000 ml @ 100 mls/hr IV . Q10H [facility] Rx#:[id number] Oral 240 Output: Urine 1550 650 450 Other: Voiding Method Urinal Urinal Toilet # Voids 1 1 Weight 74.3 kg 74.3 kg - Constitutional General appearance: average body habitus, cooperative - EENT EENT: PERRL, mucous membranes moist - Respiratory Respiratory: lungs clear, normal breath sounds - Cardiovascular Cardiovascular: regular rate, normal S1, normal S2 Extremities: no peripheral edema bilaterally - Gastrointestinal Gastrointestinal: normoactive bowel sounds - Neurologic Cranial nerve examination: PERRL, VFF, V1/V2/V3 grossly intact, face symmetric, tongue midline, intact gag reflex, intact corneal reflex, normal palatal elevation Speech examination: intact Sensorimotor examination: intact Motor examination - right side: 4/5: biceps, triceps, wrist flexion, wrist extension, assembler for puller over hand, hip flexors, knee extensors, dorsiflexion, toe extension (EHL) , plantarflexion Motor examination - left side: 4/5: biceps, triceps, wrist flexion, wrist extension, assembler for puller over hand, hip flexors, knee extensors, dorsiflexion, toe extension (EHL) , plantarflexion Detailed sensory examination: intact Reflex and gait examination: ataxic gate Reflexes: 1+: ankle, bicep, knee, tricep - Musculoskeletal Musculoskeletal: no pain - Psychiatric Psychiatric: mood/affect appropriate, cooperative Results - Laboratory Findings CBC and BMP: 01/26/18 05:17 01/26/18 05:17 Abnormal Lab Findings: Abnormal Labs 01/25/18 01/25/18 01/25/18 00:19 00:19 14:25 RBC Hgb Hct Plt Count Sodium Carbon Dioxide 19 L BUN 6 L Creatinine 0.50 L POC Glucose (mg/dL) 135 H Calcium AST 60 H Total Protein Albumin U Marijuana (THC) Screen Detected H 01/26/18 01/26/18 05:17 05:17 RBC 3.96 L Hgb 12.6 L Hct 38.4 L Plt Count 143 L Sodium 134 L Carbon Dioxide BUN 7 L Creatinine 0.60 L POC Glucose (mg/dL) Calcium 8.0 L AST Total Protein 5.5 L Albumin 3.1 L U Marijuana (THC) Screen Assessment and Plan (1) Alcohol withdrawal seizure Current Visit: Yes Status: Acute Code(s): F10.239 - ALCOHOL DEPENDENCE WITH WITHDRAWAL, UNSPECIFIED; R56.9 - UNSPECIFIED CONVULSIONS SNOMED Code(s): 546113415 (2) Parkinsonism Current Visit: Yes Status: Acute Code(s): G20 - PARKINSON'S DISEASE SNOMED Code(s): 60219735 (3) Bipolar disorder Current Visit: No Status: Acute Code(s): F31.9 - BIPOLAR DISORDER, UNSPECIFIED SNOMED Code(s): 50107916 (4) Metabolic encephalopathy Current Visit: No Status: Acute Code(s): G93.41 - METABOLIC ENCEPHALOPATHY SNOMED Code(s): 41264522 Plan: This patient is a 62-year-old right-handed white male who was admitted to Hospital with questionable seizure-like activity. Patient apparently was found collapsed at home by his daughter. He was shaking and having tremulous seizure- like activity. He was brought into the emergency room where he was further evaluated. He was seen in the ER by Dr. Azevedo. He underwent a computed tomography scan of the brain and cervical spine results of which are noted above. Patient has an extensive history of alcohol abuse in the past. He continues to drink on a daily basis. He was started on a [facility] protocol for alcohol withdrawal and alcohol related seizure disorder. He has had no further seizures since admission. Apparently yesterday evening in the intensive care unit he showed signs of severe agitation and combativeness. Seems to be doing better today after being transferred out of the ICU earlier in the day. The patient is a very poor historian. He likely has some degree of underlying dementia. He does have a history of bipolar disorder and schizophrenia as per his history. We would recommend a psychiatry consultation for this patient. We will obtain a EEG for further evaluation of underlying seizure disorder. His overall prognosis at this time remains very guarded. Time with Patient: Greater than 30
[2018-01-26] MEDS: NIACIN TR 500 MG CAPSULE.ER PO SCH (21:45)
[2018-01-26] MEDS: risperiDONE 1 MG TAB PO SCH (21:45)
[2018-01-27] MEDS: IPRATROPIUM-ALBUTEROL 3 ML NEB INHALATION SCH ×3 (07:35→16:01)
[2018-01-27] MEDS: SYMBICORT 160-4.5 MCG INHALER INHALATION SCH (07:35)
[2018-01-27 08:39] LABS: Basophils % (A) 0 %; Eosinophils # (A) 0.2 k/uL (0-0.7); Eosinophils % (A) 3 %; HCT 40.6 % (39.0-53.0); HGB 12.9 gm/dL (13.0-17.5); Lymphocytes % (A) 15 %; MCH 31.1 pg (25.0-35.0); MCHC 31.8 g/dL (31.0-37.0); MCV 97.8 fL (80.0-100.0); Mean Platelet Volume 8.1; Monocytes # (A) 0.6 k/uL (0-1.0); Monocytes % (A) 9 %; Neutrophils # (A) 4.7 k/uL (1.3-7.7); Neutrophils % (A) 72 %; Platelet Count 147 k/uL (150-450); RBC 4.15 m/uL (4.30-5.90); RDW 13.8 % (11.5-15.5); WBC 6.5 k/uL (3.8-10.6)
[2018-01-27 08:43] LABS: Anion Gap 6 mmol/L; Blood Urea Nitrogen 4 mg/dL (9-20); Calcium 8.6 mg/dL (8.4-10.2); Carbon Dioxide 23 mmol/L (22-30); Chloride 106 mmol/L (98-107); Glucose 105 mg/dL (74-99); Phosphorus 2.9 mg/dL (2.5-4.5); Potassium 3.9 mmol/L (3.5-5.1); Sodium 135 mmol/L (137-145)
[2018-01-27] MEDS: SODIUM CHLORIDE 0.9% 1,000 ML IV SCH ×2 (08:44→15:00)
[2018-01-27] MEDS ORDERED: LORazepam 1 MG TAB PO PRN (09:50)
[2018-01-27] MEDS: DOXYCYCLINE MONOHYDRATE 100 MG CAPSULE PO SCH (10:15)
[2018-01-27] MEDS: PRIMIDONE 50 MG TAB PO SCH (10:16)
[2018-01-27] MEDS: CHOLECALCIFEROL 1,000 UNIT TAB PO SCH (10:16)
[2018-01-27] MEDS: PANTOPRAZOLE 40 MG/10 ML VIAL IVP SCH (10:16)
--- NOTE | 2018-01-27 12:01 | P.PN ---
Subjective Progress Note Date: 01/26/18 62-year-old admitted with all call intoxication was watched for alcohol withdrawals patient withdrawals are not very minimal at this time. Patient is being treated for COPD exacerbation as well. Patient ideally will need subacute rehabilitation or home care but patient is declining both wanted to go home. There consulted to neurology after neurological evaluation patient will be discharged. Constitutional: Denied any fatigue denied any fever. Cardio vascular: denied any chest pain, palpitations Gastrointestinal denied any nausea vomiting Pulmonary: Denied any shortness of breath cough Neurologic denied any new focal deficits Objective - Vital Signs Vital signs: Vital Signs Temp 97.3 F L 01/27/18 07:49 Pulse 76 01/27/18 11:16 Resp 14 01/27/18 07:49 BP 148/88 01/27/18 07:49 Pulse Ox 98 01/27/18 07:36 Intake & Output 01/26/18 01/27/18 01/27/18 18:59 06:59 18:59 Intake Total 600 Output Total 1100 Balance -500 Weight 74.3 kg 73.437 kg Intake: IV 600 Sodium Chloride 0.9% 1, 600 000 ml @ 100 mls/hr IV . Q10H [facility] Rx#:[id number] Output: Urine 1100 Other: Voiding Method Urinal Toilet # Voids 1 1 - Exam PHYSICAL EXAMINATION: GENERAL: The patient is alert and oriented x3, not in any acute distress. Well developed, well nourished. HEENT: Pupils are round and equally reacting to light. EOMI. No scleral icterus. No conjunctival pallor. Normocephalic, atraumatic. No pharyngeal erythema. No thyromegaly. CARDIOVASCULAR: S1 and S2 present. No murmurs, rubs, or gallops. PULMONARY: Wheezing improved does have bibasilar crackles rhonchus breath sounds ABDOMEN: Soft, nontender, nondistended, normoactive bowel sounds. No palpable organomegaly. MUSCULOSKELETAL: No joint swelling or deformity. EXTREMITIES: No cyanosis, clubbing, or pedal edema. NEUROLOGICAL: Gross neurological examination did not reveal any focal deficits. SKIN: No rashes. - Labs CBC & Chem 7: 01/27/18 08:11 01/27/18 08:11 Labs: Abnormal Lab Results - Last 24 Hours (Table) 01/27/18 01/27/18 Range/Units 08:11 08:11 RBC 4.15 L (4.30-5.90) m/uL Hgb 12.9 L (13.0-17.5) gm/dL Plt Count 147 L (150-450) k/uL Sodium 135 L (137-145) mmol/L BUN 4 L (9-20) mg/dL Creatinine 0.56 L (0.66-1.25) mg/dL Glucose 105 H (74-99) mg/dL Assessment and Plan Plan: -Alcoholic withdrawal: Patient is on CIWA Ativan protocol. Patient is on seizure precautions IV fluids thiamine multivitamin supplementation Patient will be transferred out of ICU patient the [place] via score is only 4 today. -COPD with minimal exacerbation possible tracheal bronchitis patient is wheezing on exam patient was started on inhaled steroids and inhalational treatments. -Possible seizure : Consult thing neurology -Nicotine abuse: Counseling was provided -Rule out aspiration pneumonia: Will obtain a chest x-ray -History of psychosis patient is on risperidone benztropine will be discontinued with concern for seizures -Tachycardia seconded alcohol withdrawal.
--- NOTE | 2018-01-27 12:11 | P.DS ---
Providers Date of admission: 01/25/18 13:18 Attending physician: Courtney Curry Consults: 01/25/18 12:24 Consult Physician Urgent Consulting Provider: Elvria Moctezuma Consult Reason/Comments: ETOH withdraw Do you want consulting provider notified?: Yes 01/26/18 13:30 Consult Physician Routine Consulting Provider: Antonino Iqbal Consult Reason/Comments: seizures Do you want consulting provider notified?: Yes 01/27/18 08:00 Consult Physician Routine Consulting Provider: Homer Mccormack Consult Reason/Comments: History of Bipolar Disorder and Schizophrenia. Do you want consulting provider notified?: Yes Primary care physician: [facility] Hospital Course: 62-year-old admitted with all call intoxication was watched for alcohol withdrawals patient withdrawals are not very minimal at this time. Patient is being treated for COPD exacerbation as well. Patient ideally will need subacute rehabilitation or home care but patient is declining both wanted to go home. There consulted to neurology after neurological evaluation patient will be discharged. PHYSICAL EXAMINATION: GENERAL: The patient is alert and oriented x3, not in any acute distress. Well developed, well nourished. HEENT: Pupils are round and equally reacting to light. EOMI. No scleral icterus. No conjunctival pallor. Normocephalic, atraumatic. No pharyngeal erythema. No thyromegaly. CARDIOVASCULAR: S1 and S2 present. No murmurs, rubs, or gallops. PULMONARY: Minimal expiratory wheezing was appreciated ABDOMEN: Soft, nontender, nondistended, normoactive bowel sounds. No palpable organomegaly. MUSCULOSKELETAL: No joint swelling or deformity. EXTREMITIES: No cyanosis, clubbing, or pedal edema. NEUROLOGICAL: Gross neurological examination did not reveal any focal deficits. SKIN: No rashes. Assessment and Plan Plan: -Alcoholic withdrawal: She'll be discharged today and I do not believe patient will quit alcohol and patient was extensive counseling regarding this. Patient is not requiring Ativan today patient will be discharged on thiamine supplementation -COPD with minimal exacerbation patient is being discharged on 3 more days of doxycycline along with Spiriva albuterol Symbicort. -Possible seizure : Will be discharged after Neurology clearance and after EEG. -Nicotine abuse: Counseling was provided -Rule out aspiration pneumonia: Will obtain a chest x-ray -History of psychosis patient is on risperidone benztropine will be discontinued with concern for seizures -Tachycardia seconded alcohol withdrawal. Patient Condition at Discharge: Serious Plan - Discharge Summary Discharge Rx Participant: No New Discharge Prescriptions: New Albuterol Inhaler [Ventolin Hfa Inhaler] 1 - 2 puff INHALATION Q6HR PRN #1 inhaler PRN Reason: Shortness Of Breath Or Wheezing Budesonide-Formot 160-4.5 Mcg [Symbicort 160-4.5 Mcg Inhaler] 2 puff INHALATION BID #1 inhaler Doxycycline Monohydrate [Monodox] 100 mg PO Q12HR #6 cap Tiotropium [place] [Spiriva] 1 cap INHALATION DAILY #1 device Continue risperiDONE 3 mg PO HS Niacin [Niacin ER] 1,000 mg PO HS Benztropine Mesylate 1 mg PO HS Thiamine [Vitamin B-1] 100 mg PO DAILY Ferrous Sulfate [Feosol] 325 mg PO DAILY Cholecalciferol (Vitamin D3) [Vitamin D3] 2,000 unit PO DAILY Budesonide/Formoterol Fumarate [Symbicort 80-4.5 Mcg Inhaler] 2 puff INHALATION RT-BID Primidone [Mysoline] 50 mg PO BID Discharge Medication List Benztropine Mesylate 1 mg PO HS 12/10/13 [History] Niacin [Niacin ER] 1,000 mg PO HS 12/10/13 [History] risperiDONE 3 mg PO HS 12/10/13 [History] Thiamine [Vitamin B-1] 100 mg PO DAILY 12/27/14 [History] Ferrous Sulfate [Feosol] 325 mg PO DAILY 12/11/15 [History] Budesonide/Formoterol Fumarate [Symbicort 80-4.5 Mcg Inhaler] 2 puff INHALATION RT-BID 08/25/17 [History] Cholecalciferol (Vitamin D3) [Vitamin D3] 2,000 unit PO DAILY 08/25/17 [History] Primidone [Mysoline] 50 mg PO BID 01/25/18 [History] Albuterol Inhaler [Ventolin Hfa Inhaler] 1 - 2 puff INHALATION Q6HR PRN #1 inhaler 01/27/18 [Rx] Budesonide-Formot 160-4.5 Mcg [Symbicort 160-4.5 Mcg Inhaler] 2 puff INHALATION BID #1 inhaler 01/27/18 [Rx] Doxycycline Monohydrate [Monodox] 100 mg PO Q12HR #6 cap 09/04/18 [Rx] Tiotropium [place] [Spiriva] 1 cap INHALATION DAILY #1 device 01/27/18 [Rx] Follow up Appointment(s)/Referral(s): Vinicio Avila DO [Doctor of Osteopathic Medicine] - 3 Days Discharge Disposition: HOME SELF-CARE
--- NOTE | 2018-01-27 12:12 | P.PN ---
Subjective Progress Note Date: 01/27/18 Principal diagnosis: Alcohol withdrawal and possible seizures This is a 62-year-old white male, heavy alcohol drinker, known history of alcohol abuse, smoker, history of Parkinson's disease, hyperlipidemia, patient was admitted on 01/25/2018 with acute alcohol intoxication, and EMS brought him into the ER after having a seizure. Patient is known to have history of seizures, his last seizure was 6 months ago. His seizure this time was witnessed by his daughter, patient was noted to be on the floor shaking, confused, unable to answer any questions, and supposedly developed some post ictal phase. Patient was also noted to be incontinent of urine. Patient himself is not a great historian upon presentation, but denies any specific complaint during my evaluation. Patient was initially admitted to a regular medical floor, however since he was receiving a significant amount of Ativan since admission for alcohol withdrawal, his admitting physician felt it would be best to monitor him in the ICU. I evaluated the patient in the ICU, presently asymptomatic, calm, not in any form of distress. Denies any headache no blurred vision no dizziness no nausea no vomiting no abdominal pain no melena no hematemesis no dysuria and no frequency no urgency. Patient was reevaluated today on 01/26/2018, doing well, very calm, asymptomatic, no seizure activity noted, patient is on the alcohol withdrawal protocol. Labs including CBC basic metabolic profile liver profile were all reviewed and noted. On 01/27/2018 patient seen in follow-up on medical surgical floor. Resting comfortably in bed, denies any acute distress, he is awake and alert, oriented 3, no seizure activity, no signs of delirium tremens. Lung sounds are stable, patient is on room air, pulse ox is 98%, lung sounds are clear to auscultation, no shortness of breath. Patient's IV Ativan can be switched to oral, patient lost IV access. From pulmonary/critical care standpoint patient remains stable , will follow on as needed basis. Objective - Vital Signs Vital signs: Vital Signs Temp 97.3 F L 01/27/18 07:49 Pulse 76 01/27/18 11:16 Resp 14 01/27/18 07:49 BP 148/88 01/27/18 07:49 Pulse Ox 98 01/27/18 07:36 Intake & Output 01/26/18 01/27/1801/27/18 18:59 06:59 18:59 Intake Total 600 Output Total 1100 Balance -500 Weight 74.3 kg 73.437 kg Intake: IV 600 Sodium Chloride 0.9% 1, 600 000 ml @ 100 mls/hr IV . Q10H MICHELE Rx#:[id number] Output: Urine 1100 Other: Voiding Method Urinal Toilet # Voids 1 1 - Exam Physical Exam: Revealed a 62-year-old white male in no distress. Head: Atraumatic, normocephalic. HEENT:[Neck is supple.] [No neck masses.] [No thyromegaly.] [No JVD.] PERRLA, EOMI, no icterus. Chest: [Clear throughout, no crackles, no rhonchi, no wheezes.] Cardiac Exam: [Normal S1 and S2, no S3 gallop, no murmur.] Abdomen: [Soft, nontender, no megaly, no rebound, no guarding, normal bowel sounds.] Extremities: [No clubbing, no edema, no cyanosis.] Neurological Exam: [No focal neurologic deficit.] Alert oriented 3. Lymphatics: No lymphadenopathy. - Labs CBC & Chem 7: 01/27/18 08:11 01/27/18 08:11 Labs: Abnormal Lab Results - Last 24 Hours (Table) 01/27/18 01/27/18 Range/Units 08:11 08:11 RBC 4.15 L (4.30-5.90) m/uL Hgb 12.9 L (13.0-17.5) gm/dL Plt Count 147 L (150-450) k/uL Sodium 135 L (137-145) mmol/L BUN 4 L (9-20) mg/dL Creatinine 0.56 L (0.66-1.25) mg/dL Glucose 105 H (74-99) mg/dL Assessment and Plan Plan: Assessment: 1 poorly controlled seizures, known history of seizure disorder. May or may not be related to alcohol or alcohol withdrawal. 2 suspect early alcohol withdrawal. 3 history of alcohol abuse and alcoholism. Recommendation: Patient remains stable from pulmonary/critical care standpoint, no signs of DTs , no seizure activity. Switch IV Ativan to oral. We'll see the patient on as- needed basis I performed a history & physical examination of the patient and discussed their management with my nurse practitioner, Michelle Smith. I reviewed the nurse practitioner's note and agree with the documented findings and plan of care. Lung sounds are clear. The findings and the impression was discussed with the patient. I attest to the documentation by the nurse practitioner. Time with Patient: Less than 30
[2018-01-27] MEDS: FERROUS SULFATE 325 MG TAB PO SCH (12:22)
[2018-01-27] MEDS: THIAMINE 100 MG TAB PO SCH ×2 (12:22→16:59)
--- NOTE | 2018-01-27 12:53 | P.CN ---
Psychiatric Consult - . Consult date: 01/27/18 Consult:: IDENTIFYING DATA: The patient is a 62-year-old male admitted to medicine service for evaluation of a seizure. According to the medical record he has a history of an alcohol use disorder and developed seizures about 6 months prior to admission. The hospitalist consult to psychiatry because he has a history of mental illness. HISTORY OF PRESENT ILLNESS: I reviewed the medical record and interviewed the patient. He was a poor historian and unable to provide much information about his past psychiatric history. He stated that he has schizophrenia and a clinician at the [facility] outpatient clinic prescribes him Risperdal and " another medication" for his "parkinsonism." He believes that he has been prescribed Risperdal for about 10 years. He could not recall if he had been prescribed other psychotropic medications. He denied a history of psychiatric hospitalizations. He receives all his mental health services through the tele- mental health program at the [facility]. He denied feeling depressed or having thoughts of or suicide. He feels tremulous and "shaky" but denied subjective feelings of anxiety. He denied obsessions or compulsions. He drinks 72 ounces of beer per day; she denied use of other alcoholic-containing beverages. He smokes marijuana but denied use of other drugs get high, help him sleep or changes mood. He denied experiencing auditory, visual or olfactory hallucinations. He denied ideas of reference, thought insertion, thought broadcasting or thought control. He denied feeling paranoid, frightened or suspicious. He denied signs or symptoms suggestive of alec or hypomania. PAST PSYCHIATRIC HISTORY: He denied psychiatric hospitalizations. He could not recall whether he met with a mental health professional other than through the [facility]. SUBSTANCE USE HISTORY: He has long history of alcohol use. 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 He remembers one residential substance abuse treatment episode possibly at [place]. He denied a history of use of other drugs with the exception of marijuana. Specifically, he denied history of cocaine, crack cocaine, or opioid pain medications, heroin, methamphetamine etc. FAMILY PSYCHIATRIC/SUBSTANCE USE HISTORY: He was unaware of a family history of mental health or substance use problems.. SOCIAL HISTORY: He left school in ninth grade and did not receive his GED. He was apparently in special education. He suggested that he had been expelled from school. He left school and began working. He enlisted in the [employer] at 19 and received an honorable discharge after 2 years. He believes that he is service-connected because he [facility]. However, he was unaware as to the reasons for the disability or the percent service connected. He is from his . He lives in [place] with his daughter. 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 MENTAL STATUS EXAM: He presented as a thin and frail-appearing male who is markedly tremulous. He made eye contact but appeared to have difficulty concentrating and attending to the interview. He had a blunted facial expression. He was alert and oriented to person, place and time. He was restless and showed involuntary movements of the legs. His speech was spontaneous with decreased rate but normal volume. His affect was anxious but stable and appropriate. He denied suicidal ideation or wishes. He denied homicidal ideation. He denied feeling hopeless, helpless or worthless. He demonstrated no ruminations, phobias, ideas reference, paranoid ideation or delusional thoughts. His thinking was very concrete but his associations appeared organized and coherent. He did not demonstrate clang associations, perseverations, neologisms or blocking. He denied hallucinations and did not appear to be responding to internal stimuli. IMPRESSIONS: He is a 62-year-old male who has history of an alcohol use disorder. He presented to the [facility] for evaluation of seizure disorder that most likely is related to his chronic alcohol use. He reports a history of schizophrenia and [facility]. He is markedly tremulous and shows extrapyramidal movements of the legs most likely from chronic neuroleptic treatment. He has little insight or understanding of his mental health history. He presented as an individual with chronic schizophrenia characterized by negative symptoms and cognitive impairment. DIAGNOSIS: Schizophrenia, tardive dyskinesia, alcohol use disorder severe, alcohol withdrawal PLAN: Is no indication for psychiatric hospitalization at this time. Follow-up with the tele-sychiatry program through the [facility]. 01/27/18 12:36
[2018-01-27 15:26] VITALS: BP 132/72; PULSE 76; RESP 15; TEMP 98.2
[2018-01-28] MEDS ORDERED: PANTOPRAZOLE 40 MG TABLET PO SCH (07:30)
== END 2018-01-27 18:35 | disposition home or self-care (01) | DRG 897 ==
LOC: EC 23:39 → 5MS5E 01-25 01:13 → OBSVTOIN 01-25 13:18 → 6ICU 01-25 14:16 → 5MS5E 01-26 14:05
PROVIDERS: ADMIT Hospitalist; ATTEND Hospitalist
DX: F10.239 Alcohol dependence with withdrawal, unspecified (principal); J44.1 Chronic obstructive pulmonary disease with (acute) exacerbation; R56.9 Unspecified convulsions; F10.229 Alcohol dependence with intoxication, unspecified; G20 Parkinson's disease; F20.9 Schizophrenia, unspecified; G62.1 Alcoholic polyneuropathy; Z78.1 Physical restraint status; F31.9 Bipolar disorder, unspecified; R00.0 Tachycardia, unspecified; E78.5 Hyperlipidemia, unspecified; G24.01 Drug induced subacute dyskinesia; R32 Unspecified urinary incontinence; Y90.8 Blood alcohol level of 240 mg/100 ml or more; Z71.41 Alcohol abuse counseling and surveillance of alcoholic; Z71.6 Tobacco abuse counseling; F17.200 Nicotine dependence, unspecified, uncomplicated; Z79.51 Long term (current) use of inhaled steroids; Z79.899 Other long term (current) drug therapy; Z90.49 Acquired absence of other specified parts of digestive tract
CPT/HCPCS: 36415; 70450; 71045; 72125; 80048; 80053; 80306; 80320; 81003; 83735; 84100; 85025; 93005; 94640; 94760; 95816; 96361; 96365; 96372; 99285

== ENCOUNTER 2018-11-23 21:29 | Emergency (ER) | payer OTHER ==
--- NOTE | 2018-11-23 22:07 | ED ---
General Adult HPI - General Chief complaint: Alcohol Stated complaint: Syncope Time Seen by Provider: 11/23/18 21:47 Source: EMS Mode of arrival: EMS Limitations: no limitations - History of Present Illness Initial comments: Dictation was produced using [employer] dictation software. please excuse any grammatical, word or spelling errors. Chief Complaint: 63-year-old daily alcohol drinker presents with EtOH intoxication. History of Present Illness: She 63-year-old male has past medical history of EtOH dependence, Parkinson's disease. He was found down at home by his daughter. His daughter cannot get him up. She called EMS and patient was brought to the emergency department. Patient states he drinks multiple beers a day. According to nurse received report from EMS patient is always found down from drinking. Patient states he feels well at the moment. Denies any suicidal or homicidal ideation. Patient has no pain complex. The ROS documented in this emergency department record has been reviewed and confirmed by me. Those systems with pertinent positive or negative responses have been documented in the HPI. All other systems are other negative and/or noncontributory. PHYSICAL EXAM: General Impression: Alert and oriented x3, not in acute distress, smells of EtOH HEENT: Normocephalic atraumatic, extra-ocular movements intact, pupils equal and reactive to light bilaterally, mucous membranes moist. Cardiovascular: Heart regular rate and rhythm, S1&S2 audible, no murmurs, rubs or gallops Chest: Lungs clear to auscultation bilaterally, no rhonchi, no wheeze, no rales Abdomen: Bowel sounds present, abdomen soft, non-tender, non-distended, no organomegaly Musculoskeletal: Pulses present and equal in all extremities, no peripheral edema Motor: no focal deficits noted Neurological: CN II-XII grossly intact, no focal motor or sensory deficits noted Skin: Intact with no visualized rashes Psych: Normal affect and mood ED course: 63-year-old with acute EtOH intoxication. He was found down at home. Patient is unreliable historian at this time. Physical exam exam is grossly benign signs upon arrival are within acceptable limits. Patient's breath alcohol test is elevated. Laboratory evaluation obtained. CBC, metabolic panel shows slight anion gap acidosis which is secondary to alcoholic ketoacidosis, coag panel is unremarkable. Patient's serum alcohol is 287. Patient's daily alcohol drinker. Computed tomography scan of the head and chest x-ray was obtained showing no acute processes. Patient value at bedside. He feels well. Daughter reports that this is around patient's baseline. His point there is no indication to admit patient. He does have transportation home. She told to follow-up with primary care physician. Return primary was discussed. Patient clear for discha rge. EKG interpretation: Ventricular rate 86, normal sinus rhythm, MN interval 154, care is 96, QTC 454. No MN prolongation, no QTC prolongation, no ST or T-wave changes noted. EKG compared to 01/25/2010 showing no changes. Overall, this EKG is unremarkable - Related Data Home Medications Medication Instructions Recorded Confirmed Benztropine Mesylate 1 mg PO HS 12/10/13 01/25/18 Niacin [Niacin ER] 1,000 mg PO HS 12/10/13 01/25/18 risperiDONE 3 mg PO HS 12/10/13 01/25/18 Thiamine [Vitamin B-1] 100 mg PO DAILY 12/27/14 01/25/18 Ferrous Sulfate [Feosol] 325 mg PO DAILY 12/11/15 01/25/18 Budesonide/Formoterol Fumarate 2 puff INHALATION RT-BID 08/25/17 01/25/18 [Symbicort 80-4.5 Mcg Inhaler] Cholecalciferol (Vitamin D3) 2,000 unit PO DAILY 08/25/17 01/25/18 [Vitamin D3] Primidone [Mysoline] 50 mg PO BID 01/25/18 01/25/18 Previous Rx's Medication Instructions Recorded Albuterol Inhaler [Ventolin Hfa 1 - 2 puff INHALATION Q6HR PRN #1 01/27/18 Inhaler] inhaler Budesonide-Formot 160-4.5 Mcg 2 puff INHALATION BID #1 inhaler 01/27/18 [Symbicort 160-4.5 Mcg Inhaler] Doxycycline Monohydrate [Monodox] 100 mg PO Q12HR #6 cap 01/27/18 Tiotropium [place] [Spiriva] 1 cap INHALATION DAILY #1 device 01/27/18 Allergies Allergy/AdvReac Type Severity Reaction Status Date / Time No Known Allergies Allergy Verified 01/25/18 12:35 Review of Systems ROS Statement: Those systems with pertinent positive or pertinent negative responses have been documented in the HPI. ROS Other: All systems not noted in ROS Statement are negative. Past Medical History Past Medical History: Hyperlipidemia Additional Past Medical History / Comment(s): Parkinson's, ETOH abused, smoker; seizures, started about 6 months ago History of Any Multi-Drug Resistant Organisms: None Reported Past Surgical History: Appendectomy Additional Past Surgical History / Comment(s): Cyst removal from right wrist Past Anesthesia/Blood Transfusion Reactions: No Reported Reaction Past Psychological History: Bipolar, Schizophrenia Smoking Status: Current every day smoker Past Alcohol Use History: Abuse, Daily, Heavy Past Drug Use History: Marijuana - Past Family History Father History Unknown: Yes Mother History Unknown: Yes Brother(s) Family Medical History: No Reported History Sister(s) Family Medical History: No Reported History General Exam Limitations: no limitations Course Vital Signs 11/23/18 11/23/18 21:33 23:41 Temperature 97.7 F 98.0 F Pulse Rate 90 89 Respiratory 20 16 Rate Blood Pressure 143/81 146/83 O2 Sat by Pulse 95 98 Oximetry Medical Decision Making - Lab Data Result diagrams: 11/23/18 22:07 11/23/18 22:07 Lab Results 11/23/18 11/23/18 11/23/18 Range/Units 22:07 22:07 22:07 WBC 7.9 (3.8-10.6) k/uL RBC 4.23 L (4.30-5.90) m/uL Hgb 13.1 (13.0-17.5) gm/dL Hct 39.3 (39.0-53.0) % MCV 92.7 (80.0-100.0) fL MCH 31.0 (25.0-35.0) pg MCHC 33.5 (31.0-37.0) g/dL RDW 13.3 (11.5-15.5) % Plt Count 187 (150-450) k/uL Neutrophils % 76 % Lymphocytes % 12 % Monocytes % 8 % Eosinophils % 1 % Basophils % 0 % Neutrophils # 6.1 (1.3-7.7) k/uL Lymphocytes # 1.0 (1.0-4.8) k/uL Monocytes # 0.6 (0-1.0) k/uL Eosinophils # 0.1 (0-0.7) k/uL Basophils # 0.0 (0-0.2) k/uL PT 9.6 (9.0-12.0) sec INR 0.9 (<1.2) Sodium 133 L (137-145) mmol/L Potassium 4.1 (3.5-5.1) mmol/L Chloride 98 (98-107) mmol/L Carbon Dioxide 19 L (22-30) mmol/L Anion Gap 16 mmol/L BUN 9 (9-20) mg/dL Creatinine 0.59 L (0.66-1.25) mg/dL Est GFR (CKD-EPI)AfAm >90 (>60 ml/min/1.73 sqM) Est GFR (CKD-EPI)NonAf >90 (>60 ml/min/1.73 sqM) Glucose 122 H (74-99) mg/dL Calcium 8.5 (8.4-10.2) mg/dL Magnesium 2.2 (1.6-2.3) mg/dL Total Bilirubin 0.4 (0.2-1.3) mg/dL AST 53 (17-59) U/L ALT 33 (21-72) U/L Alkaline Phosphatase 71 (38-126) U/L Creatine Kinase 415 H (55-170) U/L Total Protein 6.7 (6.3-8.2) g/dL Albumin 4.1 (3.5-5.0) g/dL Serum Alcohol 287 H* mg/dL Disposition Clinical Impression: Alcohol intoxication Disposition: HOME SELF-CARE Condition: Good Instructions (If sedation given, give patient instructions): Alcohol Intoxication (ED) Is patient prescribed a controlled substance at d/c from ED?: No Referrals: [facility],Clinic [Primary Care Provider] - 1-2 days Time of Disposition: 00:42
[2018-11-23 22:25] LABS: Basophils % (A) 0 %; Eosinophils # (A) 0.1 k/uL (0-0.7); Eosinophils % (A) 1 %; HCT 39.3 % (39.0-53.0); HGB 13.1 gm/dL (13.0-17.5); Lymphocytes % (A) 12 %; MCHC 33.5 g/dL (31.0-37.0); MCV 92.7 fL (80.0-100.0); Mean Platelet Volume 7.2; Monocytes # (A) 0.6 k/uL (0-1.0); Monocytes % (A) 8 %; Neutrophils # (A) 6.1 k/uL (1.3-7.7); Neutrophils % (A) 76 %; Platelet Count 187 k/uL (150-450); RBC 4.23 m/uL (4.30-5.90); RDW 13.3 % (11.5-15.5); WBC 7.9 k/uL (3.8-10.6)
[2018-11-23 22:27] LABS: INR 0.9 (<1.2); Prothrombin Time 9.6 sec (9.0-12.0)
[2018-11-23 22:30] LABS: ALT 33 U/L (21-72); AST 53 U/L (17-59); African American GFR (CKD) >90 (>60 ml/min/1.73 sqM); Albumin 4.1 g/dL (3.5-5.0); Alkaline Phosphatase 71 U/L (38-126); Anion Gap 16 mmol/L; Blood Urea Nitrogen 9 mg/dL (9-20); Calcium 8.5 mg/dL (8.4-10.2); Carbon Dioxide 19 mmol/L (22-30); Chloride 98 mmol/L (98-107); Creatine Kinase 415 U/L (55-170); Glucose 122 mg/dL (74-99); Magnesium 2.2 mg/dL (1.6-2.3); Potassium 4.1 mmol/L (3.5-5.1); Sodium 133 mmol/L (137-145); Total Bilirubin 0.4 mg/dL (0.2-1.3); Total Protein 6.7 g/dL (6.3-8.2)
[2018-11-23 22:40] LABS: Alcohol 287 mg/dL
--- NOTE | 2018-11-23 23:33 | XR ---
EXAM: XR Chest, 2 Views CLINICAL HISTORY: ITS.REASON XR Reason: Pain TECHNIQUE: Frontal and lateral views of the chest. COMPARISON: [facility] Chest x-ray 01/26/2018 FINDINGS: Lungs: No focal pulmonary infiltrates or consolidations Pleural space: No evidence of pleural effusion or pneumothorax. Heart: Heart size is within normal limits. Mediastinum: Mediastinal structures are unremarkable. Bones/joints: Old healed distal right clavicle fracture. Old left lower rib fractures. Mild degenerative changes involve thoracic spine. IMPRESSION: No evidence of acute cardiopulmonary disease.
[2018-11-23 23:43] VITALS: RESP 16; TEMP 98
--- NOTE | 2018-11-23 23:46 | XR ---
EXAM: XR Pelvis, 1 or 2 Views CLINICAL HISTORY: ITS.REASON XR Reason: Pain TECHNIQUE: Frontal view of the pelvis. COMPARISON: None available FINDINGS: Bones/joints: No definite acute fracture or dislocation. Minimal degenerative changes about both hips. IMPRESSION: No definite acute fracture or dislocation.
--- NOTE | 2018-11-24 00:23 | CT ---
EXAM: CT Head Without Intravenous Contrast CLINICAL HISTORY: ITS.REASON CT Reason: Pain TECHNIQUE: Axial computed tomography images of the head/brain without intravenous contrast. CTDI is 45.3 mGy and DLP is 1111.5 mGy-cm. This CT exam was performed using one or more of the following dose reduction techniques: automated exposure control, adjustment of the mA and/or kV according to patient size, and/or use of iterative reconstruction technique. COMPARISON: None available FINDINGS: Artifacts: Mild CT motion artifact. Brain: No evidence of acute transcortical cerebral infarction or intracranial hemorrhage. No abnormal mass effect or midline shift. No abnormal extra-axial collections. Mild cerebral atrophy with predominant involvement of frontal lobes. Mild chronic white matter ischemic changes. Ventricles: Ventricles are unremarkable. Bones/joints: No definite skull fracture identified. Sinuses: Mild left maxillary mucosal thickening and sinus fluid. Minimal right maxillary mucosal thickening. Mastoid air cells: Mastoid sinuses are clear. IMPRESSION: No evidence of acute intracranial abnormality. Maxillary sinus disease. EXAM: CT Cervical Spine Without Intravenous Contrast CLINICAL HISTORY: ITS.REASON CT Reason: Pain TECHNIQUE: Axial computed tomography images of the cervical spine without intravenous contrast. CTDI is 13.1 mGy and DLP is 379.0 mGy-cm. This CT exam was performed using one or more of the following dose reduction techniques: automated exposure control, adjustment of the mA and/or kV according to patient size, and/or use of iterative reconstruction technique. COMPARISON: None available FINDINGS: Artifacts: CT motion artifact. Vertebrae: Cervical vertebral alignment is within normal limits. Mild chronic appearing compression deformities involving C5, C6 and T1 vertebral bodies. No definite evidence of acute cervical fracture or subluxation. Discs/spinal canal/neural foramina: Congenital C2-C3 vertebral fusion. Advanced multilevel cervical disc disease, spondylosis and facet joint arthropathy. Soft tissues: No abnormal prevertebral soft tissue thickening. IMPRESSION: No definite evidence of acute cervical fracture or subluxation. Advanced multilevel cervical spine degenerative changes.
[2018-11-24 01:06] LABS: Appearance,Urine Clear (Clear); Bilirubin,Urine Negative (Negative); Blood,Urine Negative (Negative); Color,Urine Colorless; Glucose,Urine (UA) Negative (Negative); Ketones,Urine Negative (Negative); Leukocyte Esterase,Urine Negative (Negative); Nitrite,Urine Negative (Negative); PH, Urine 5.5 (5.0-8.0); Protein,Urine Negative (Negative); Specific Gravity,Urine 1.002 (1.001-1.035); Urobilinogen,Urine <2.0 mg/dL (<2.0)
[2018-11-24 01:20] VITALS: BP 136/65; PULSE 73
== END 2018-11-24 01:20 | disposition home or self-care (01) ==
LOC: EC 21:29
DX: F10.129 Alcohol abuse with intoxication, unspecified (principal); J32.0 Chronic maxillary sinusitis; F31.9 Bipolar disorder, unspecified; E87.2 Acidosis; F20.9 Schizophrenia, unspecified; F17.200 Nicotine dependence, unspecified, uncomplicated; Z79.51 Long term (current) use of inhaled steroids; Z79.899 Other long term (current) drug therapy
CPT/HCPCS: 36415; 70450; 71046; 72125; 72170; 80053; 80320; 81003; 82550; 83735; 85025; 85610; 93005; 99285

== ENCOUNTER 2019-01-03 15:07 | Emergency (ER) | payer OTHER ==
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
--- NOTE | 2019-01-03 15:47 | CT ---
EXAMINATION TYPE: CT brain gely joseph con DATE OF EXAM: 01/03/2019 COMPARISON: 11/23/2018 HISTORY: Head injury with posterior laceration CT DLP: 1402.3 mGycm Automated exposure control for dose reduction was used. TECHNIQUE: CT scan of the head and cervical spine are performed without contrast. FINDINGS: There is some cerebral cortical atrophy. There is no mass effect nor midline shift. There is no sign of intracranial hemorrhage. The calvarium is intact. Cervical vertebra have fairly normal alignment. There is hypertrophic anterior spurring from C4 to C7 . There is mild multilevel hypertrophic cervical facet arthropathy. The skull base is intact. There i s no evidence of a fracture. IMPRESSION: Cerebral atrophy. No acute intracranial abnormality. Spondylotic changes in the cervical spine. No fracture. No significant disc space narrowing. There is improvement in left maxillary sinusitis compared to recent CT scan of the brain. Cervical sp ine unchanged.
[2019-01-03 17:48] VITALS: BP 155/82; PULSE 87; RESP 18; TEMP 98.1
== END 2019-01-03 17:47 | disposition home or self-care (01) ==
LOC: EC 15:07
DX: S01.01XA Laceration without foreign body of scalp, initial encounter (principal); E78.5 Hyperlipidemia, unspecified; G20 Parkinson's disease; F31.9 Bipolar disorder, unspecified; F20.9 Schizophrenia, unspecified; F17.200 Nicotine dependence, unspecified, uncomplicated; Z79.899 Other long term (current) drug therapy; V13.4XXA Pedal cycle driver injured in collision with car, pick-up truck or van in traffic accident, initial encounter; Y93.55 Activity, bike riding; Y92.89 Other specified places as the place of occurrence of the external cause
CPT/HCPCS: 12002; 70450; 72125; 99284

== ENCOUNTER 2019-03-28 20:41 | Observation (INO) | payer OTHER ==
[2019-03-28] MEDS ORDERED: SODIUM CHLORIDE 0.9% 1,000 ML IV STA ×2 (21:04)
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
[2019-03-28 21:35] LABS: Basophils # (A) 0.1 k/uL (0-0.2); Basophils % (A) 0 %; Eosinophils # (A) 0.1 k/uL (0-0.7); Eosinophils % (A) 1 %; HCT 41.3 % (39.0-53.0); HGB 14.2 gm/dL (13.0-17.5); Lymphocytes # (A) 1.1 k/uL (1.0-4.8); Lymphocytes % (A) 8 %; MCH 32.7 pg (25.0-35.0); MCHC 34.3 g/dL (31.0-37.0); MCV 95.3 fL (80.0-100.0); Mean Platelet Volume 6.8; Monocytes # (A) 0.9 k/uL (0-1.0); Monocytes % (A) 6 %; Neutrophils # (A) 11.5 k/uL (1.3-7.7); Neutrophils % (A) 83 %; Platelet Count 242 k/uL (150-450); RBC 4.33 m/uL (4.30-5.90); WBC 13.9 k/uL (3.8-10.6)
[2019-03-28 21:50] LABS: ALT 25 U/L (21-72); AST 35 U/L (17-59); African American GFR (CKD) >90 (>60 ml/min/1.73 sqM); Albumin 4.3 g/dL (3.5-5.0); Alkaline Phosphatase 71 U/L (38-126); Anion Gap 12 mmol/L; Blood Urea Nitrogen 12 mg/dL (9-20); Calcium 9.2 mg/dL (8.4-10.2); Carbon Dioxide 23 mmol/L (22-30); Chloride 103 mmol/L (98-107); Creatine Kinase 103 U/L (55-170); Glucose 103 mg/dL (74-99); Magnesium 2.1 mg/dL (1.6-2.3); Phosphorus 3.5 mg/dL (2.5-4.5); Potassium 4.3 mmol/L (3.5-5.1); Sodium 138 mmol/L (137-145); Total Bilirubin 0.3 mg/dL (0.2-1.3); Total Protein 7.2 g/dL (6.3-8.2)
[2019-03-28 21:54] LABS: Alcohol 258 mg/dL
[2019-03-28 21:56] LABS: INR 0.9 (<1.2); Partial Thromboplastin Time 22.2 sec (22.0-30.0); Prothrombin Time 9.6 sec (9.0-12.0)
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
[2019-03-28] MEDS ORDERED: MORPHINE SULFATE 4 MG/ML SYRINGE IVP PRN (22:51)
[2019-03-28] MEDS ORDERED: LORazepam 2 MG/ML INJ IV PRN ×4 (22:53)
[2019-03-28] MEDS ORDERED: THIAMINE 100 MG/ML 2 ML VIAL IM STA (22:53)
[2019-03-28] MEDS ORDERED: SODIUM CHLORIDE 0.9% 1,000 ML IV SCH (23:00)
[2019-03-28] MEDS: THIAMINE 100 MG TAB PO SCH ×2 (23:14→23:15)
[2019-03-28] MEDS ORDERED: NICOTINE 21MG/24HR PATCH TRANSDERM STA (23:17)
[2019-03-29] MEDS: IPRATROPIUM-ALBUTEROL 3 ML NEB INHALATION SCH ×2 (07:58→11:04)
[2019-03-29 08:16] VITALS: RESP 18; TEMP 97.9
[2019-03-29] MEDS ORDERED: MULTIVITAMINS, THERA 1 EACH TAB PO SCH (09:00)
--- NOTE | 2019-03-29 10:03 | XR ---
EXAMINATION TYPE: XR chest 1V DATE OF EXAM: 03/29/2019 COMPARISON: Correlation CT 03/28/2019 HISTORY: 64-year-old male follow-up pneumothorax TECHNIQUE: Single frontal view of the chest is obtained. FINDINGS: Leftward patient rotation alters the normal cardiomediastinal contours. Heart upper limits of normal in size. Prominent subcutaneous emphysema along the left chest wall. Some hazy density peripherally i n the left lung likely atelectasis. Trace left apical pneumothorax measures 5 mm. Left-sided rib frac tures better demonstrated on the patient's CT scan. Right lung and pleural space are clear. [place] d fracture deformity right clavicle. IMPRESSION: 1. Trace left apical pneumothorax measuring 5 mm. Findings discussed with Dr. Holden over the phone at 10:00 AM. 2. Known left-sided rib fractures that are seen on patient's recent CT. Associated subcutaneous emphy sema.
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
[2019-03-29] MEDS: THIAMINE 100 MG TAB PO SCH (11:04)
[2019-03-29 11:21] VITALS: BMI 23.6
[2019-03-29 11:56] VITALS: BP 161/87; PULSE 87
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
== END 2019-03-29 14:38 | disposition home or self-care (01) ==
LOC: EC 20:41 → 4SSUR 03-29 → 3SCARD 03-29 05:36
PROVIDERS: ADMIT Surgery; ATTEND Surgery
DX: S22.42XA Multiple fractures of ribs, left side, initial encounter for closed fracture (principal); T79.7XXA Traumatic subcutaneous emphysema, initial encounter; S27.0XXA Traumatic pneumothorax, initial encounter; S00.03XA Contusion of scalp, initial encounter; E78.5 Hyperlipidemia, unspecified; G20 Parkinson's disease; R56.9 Unspecified convulsions; F20.9 Schizophrenia, unspecified; F31.9 Bipolar disorder, unspecified; F10.129 Alcohol abuse with intoxication, unspecified; F17.200 Nicotine dependence, unspecified, uncomplicated; Z90.49 Acquired absence of other specified parts of digestive tract; Y90.8 Blood alcohol level of 240 mg/100 ml or more; V18.4XXA Pedal cycle driver injured in noncollision transport accident in traffic accident, initial encounter; Y93.55 Activity, bike riding; Z79.899 Other long term (current) drug therapy; Z79.51 Long term (current) use of inhaled steroids
CPT/HCPCS: 96360; 96361 ×2; 96372; 99285; 36415; 94640 ×2; 94760; 93005; 80053; 82550; 83735; 84100; 84484; 85025; 85610; 85730; 80320; 71045; 72125; 70486; 70450; 71260; 74177; G0378 ×3; S4990; J3411; Q9967

== ENCOUNTER → 2019-12-27 | Outpatient (CLI) | payer OTHER ==
--- NOTE | 2019-12-27 16:30 | CTL ---
EXAMINATION TYPE: CT Low Dose Lung DATE OF EXAM ORDERED: 12/27/2019 COMPARISON: None HISTORY: . Low Dose CT Lung Screening CT DLP: 112.[address] CTDI: 3.0 mGy IV CONTRAST USED: None. SCREENING VISIT: First visit COMPARISON: None. TECHNIQUE: Low dose computed tomography scan was performed through the chest at 1 millimeter thick se ctions and reconstructed images in the coronal plane at [address] DIAGNOSTIC QUALITY: Satisfactory FINDINGS: LUNG NODULES: Not presentLeft lung: no nodules identified.Right lung: no nodules identified. LUNGS: COPD: Severity: None Fibrosis: Severity:None Lymph nodes: None Other findings: None RIGHT PLEURAL SPACE: Effusion: None Calcification: None Thickening: None Pneumothorax: None LEFT PLEURAL SPACE: Effusion: None Calcification: None Thickening: None Pneumothorax: None HEART: Heart Size: Mildly enlarged Coronary calcification: Mild Pericardial effusion: None OTHER FINDINGS: Upper abdomen: No significant abnormality Bony thorax: Degenerative changes Supraclavicular region: No significant abnormalityOther: No significant abnormalityI IMPRESSION: No concerning pulmonary nodules identified. FOLLOW UP CT CHEST RECOMMENDATION: Follow-up screening in one year. Smoking cessation recommended. CT LUNG RAD: LUNG RAD CATEGORY 1 negative
== END | disposition home or self-care (01) ==
LOC: RADCTMAIN 15:43
DX: Z12.2 Encounter for screening for malignant neoplasm of respiratory organs (principal); F17.210 Nicotine dependence, cigarettes, uncomplicated

== ENCOUNTER 2020-04-27 01:12 | Observation (INO) | payer OTHER ==
[2020-04-27] MEDS ORDERED: THIAMINE 100 MG/ML 2 ML VIAL IM STA (01:41)
[2020-04-27 02:14] LABS: Basophils # (A) 0.1 k/uL (0-0.2); Basophils % (A) 2 %; Eosinophils # (A) 0.1 k/uL (0-0.7); Eosinophils % (A) 2 %; HCT 43.2 % (39.0-53.0); HGB 14.9 gm/dL (13.0-17.5); Lymphocytes # (A) 1.8 k/uL (1.0-4.8); Lymphocytes % (A) 23 %; MCH 32.5 pg (25.0-35.0); MCHC 34.6 g/dL (31.0-37.0); Mean Platelet Volume 8.2; Monocytes # (A) 0.6 k/uL (0-1.0); Monocytes % (A) 8 %; Neutrophils # (A) 4.9 k/uL (1.3-7.7); Neutrophils % (A) 63 %; Platelet Count 175 k/uL (150-450); RDW 12.6 % (11.5-15.5); WBC 7.8 k/uL (3.8-10.6)
--- NOTE | 2020-04-27 02:14 | CT ---
EXAM: CT Head Without Intravenous Contrast CLINICAL HISTORY: ITS.REASON CT Reason: fall TECHNIQUE: Axial computed tomography images of the head/brain without intravenous contrast. CTDI is 28.6 mGy and DLP is 1028.5 mGy-cm. This CT exam was performed using one or more of the following dose reduction techniques: automated exposure control, adjustment of the mA and/or kV according to patient size, and/or use of iterative reconstruction technique. COMPARISON: No relevant prior studies available. FINDINGS: Brain: No hemorrhage or mass effect. Mild cerebral volume loss. Ventricles: No hydrocephalus. Bones/joints: Unremarkable. Soft tissues: Unremarkable. Sinuses: Mild maxillary sinus mucosal thickening. Mastoid air cells: Mild right mastoid effusion. IMPRESSION: No acute hemorrhage, hydrocephalus, or mass effect. Mild right mastoid effusion. EXAM: CT Cervical Spine Without Intravenous Contrast CLINICAL HISTORY: ITS.REASON CT Reason: fall TECHNIQUE: Axial computed tomography images of the cervical spine without intravenous contrast. CTDI is 28.6 mGy and DLP is 354.9 mGy-cm. This CT exam was performed using one or more of the following dose reduction techniques: automated exposure control, adjustment of the mA and/or kV according to patient size, and/or use of iterative reconstruction technique. COMPARISON: 03/28/2019 FINDINGS: Vertebrae: No acute fracture. Chronic Minimal superior endplate wedging of C7. Discs/spinal canal/neural foramina: Multilevel degenerative disease. Multilevel facet arthrosis. Soft tissues: No prevertebral swelling. IMPRESSION: No acute fracture or subluxation.
[2020-04-27 02:19] LABS: INR 0.9 (<1.2); Prothrombin Time 9.8 sec (9.0-12.0)
[2020-04-27 02:27] LABS: ALT 61 U/L (4-49); AST 72 U/L (17-59); African American GFR (CKD) >90 (>60 ml/min/1.73 sqM); Albumin 4.2 g/dL (3.5-5.0); Alkaline Phosphatase 81 U/L (38-126); Anion Gap 9 mmol/L; Blood Urea Nitrogen 8 mg/dL (9-20); Calcium 9.3 mg/dL (8.4-10.2); Carbon Dioxide 23 mmol/L (22-30); Chloride 104 mmol/L (98-107); Glucose 116 mg/dL (74-99); Magnesium 2.3 mg/dL (1.6-2.3); Non-African American GFR(CKD) >90 (>60 ml/min/1.73 sqM); Potassium 4.3 mmol/L (3.5-5.1); Sodium 136 mmol/L (137-145); Total Bilirubin 0.4 mg/dL (0.2-1.3); Total Protein 7.1 g/dL (6.3-8.2)
[2020-04-27 02:45] LABS: Alcohol 337 mg/dL
[2020-04-27] MEDS ORDERED: ACETAMINOPHEN TAB 325 MG TAB PO PRN (02:47)
[2020-04-27] MEDS ORDERED: ONDANSETRON 4 MG/2 ML VIAL IVP PRN (02:47)
[2020-04-27] MEDS ORDERED: NALOXONE 0.4 MG/ML 1 ML VIAL IV PRN (02:47)
[2020-04-27] MEDS ORDERED: LORazepam 2 MG/ML INJ IV PRN ×3 (02:49)
--- NOTE | 2020-04-27 02:52 | ED ---
Fall HPI - General Chief Complaint: Fall Stated Complaint: Fall, etoh Time Seen by Provider: 04/27/20 01:17 Source: patient, EMS Mode of arrival: EMS - History of Present Illness Initial Comments: Patient is 65-year-old man brought by ambulance to be evaluated after he had ground-level fall. The patient does reportedly have a number of alcohol drinks every day. History of frequent falls. The patient denies any other injury. States that he just has mild headache, no neck pain. No neurologic deficit. MD Complaint: fall Onset/Timin -: hour(s) Fall From: standing When Fall Occurred: recurrent falls Fall Witnessed: no Place Fall Occurred: home Loss of Consciousness: unsure Prolonged Down Time?: unclear Symptoms Prior to Fall: none Location: head Severity: mild Context: alcohol use, history of frequent falls Associated Symptoms: headache - Related Data Home Medications Medication Instructions Recorded Confirmed Niacin [Niacin ER] 1,000 mg PO HS 12/10/13 03/28/19 risperiDONE 3 mg PO HS 12/10/13 03/28/19 Thiamine [Vitamin B-1] 100 mg PO DAILY 12/27/14 03/28/19 Ferrous Sulfate [Feosol] 325 mg PO DAILY 12/11/15 03/28/19 Cholecalciferol (Vitamin D3) 2,000 unit PO DAILY 08/25/17 03/28/19 [Vitamin D3] Primidone [Mysoline] 50 mg PO BID 01/25/18 03/28/19 Albuterol Sulfate [Proair Hfa] 1 - 2 puff INHALATION RT-QID PRN 03/28/19 03/28/19 Tiotropium [place] [Spiriva] 1 cap INHALATION RT-DAILY 03/28/19 03/28/19 Budesonide-Formot 160-4.5 Mcg 2 puff INHALATION RT-BID 03/29/19 03/29/19 [Symbicort 160-4.5 Mcg Inhaler] Multivitamins, Thera [Multivitamin 1 tab PO DAILY 03/29/19 03/29/19 (formulary)] Previous Rx's Medication Instructions Recorded Ibuprofen [Motrin] 600 mg PO Q8HR PRN 10 Days #30 tab 03/29/19 Allergies Allergy/AdvReac Type Severity Reaction Status Date / Time No Known Allergies Allergy Verified 03/28/19 21:14 Review of Systems ROS Statement: Those systems with pertinent positive or pertinent negative responses have been documented in the HPI. ROS Other: All systems not noted in ROS Statement are negative. Constitutional: Denies: fever Eyes: Denies: eye pain, vision change Respiratory: Denies: cough, dyspnea Cardiovascular: Denies: chest pain, palpitations, syncope Gastrointestinal: Denies: abdominal pain, nausea, vomiting, diarrhea Genitourinary: Denies: dysuria Musculoskeletal: Denies: back pain Skin: Denies: rash Neurological: Reports: headache. Denies: weakness, numbness, paresthesias Past Medical History Past Medical History: Hyperlipidemia Additional Past Medical History / Comment(s): Parkinson's, ETOH abused, smoker; seizures, started about 6 months ago History of Any Multi-Drug Resistant Organisms: None Reported Past Surgical History: Appendectomy Additional Past Surgical History / Comment(s): Cyst removal from right wrist Past Anesthesia/Blood Transfusion Reactions: No Reported Reaction Past Psychological History: Bipolar, Schizophrenia Smoking Status: Current some day smoker Past Alcohol Use History: Abuse, Daily, Heavy Past Drug Use History: Marijuana - Past Family History Father History Unknown: Yes Mother History Unknown: Yes Brother(s) Family Medical History: No Reported History Sister(s) Family Medical History: No Reported History General Exam Limitations: no limitations General appearance: alert, in no apparent distress, appears intoxicated Head exam: Present: normocephalic, other (There is a small scalp hematoma with out bony tenderness or deformity) Eye exam: Present: normal appearance, PERRL, EOMI, nystagmus. Absent: scleral icterus, conjunctival injection ENT exam: Present: mucous membranes dry Neck exam: Present: normal inspection, full ROM. Absent: tenderness Respiratory exam: Present: wheezes. Absent: respiratory distress, rales, rhonchi, stridor, chest wall tenderness Cardiovascular Exam: Present: regular rate, normal rhythm, normal heart sounds. Absent: systolic murmur, diastolic murmur, rubs, gallop GI/Abdominal exam: Present: soft. Absent: distended, tenderness, guarding, rebound, rigid, mass Extremities exam: Present: normal inspection, normal capillary refill. Absent: pedal edema, calf tenderness Back exam: Present: normal inspection. Absent: CVA tenderness (R), CVA tenderness (L) Neurological exam: Present: alert, CN II-XII intact. Absent: motor sensory d eficit Skin exam: Present: warm, dry, intact, normal color. Absent: rash Course Vital Signs 04/27/20 04/27/20 04/27/20 01:14 02:30 02:56 Temperature 97.7 F Pulse Rate 86 86 Respiratory 18 18 Rate Blood Pressure 125/90 102/87 O2 Sat by Pulse 95 97 Oximetry 04/27/20 06:14 Temperature Pulse Rate 86 Respiratory 18 Rate Blood Pressure 117/77 O2 Sat by Pulse 95 Oximetry Medical Decision Making - Medical Decision Making Patient's 65-year-old man daily drinker who presents after a ground-level fall. The patient is cleared with computed tomography scan but will be admitted as she does appear to be impending DTs. The patient very tremulous with alcohol level above 300. The [facility] protocol started - Lab Data Result diagrams: 04/27/20 02:09 04/27/20 02:09 Lab Results 04/27/20 04/27/20 04/27/20 Range/Units 02:09 02:09 02:09 WBC 7.8 (3.8-10.6) k/uL RBC 4.60 (4.30-5.90) m/uL Hgb 14.9 (13.0-17.5) gm/dL Hct 43.2 (39.0-53.0) % MCV 94.0 (80.0-100.0) fL MCH 32.5 (25.0-35.0) pg MCHC 34.6 (31.0-37.0) g/dL RDW 12.6 (11.5-15.5) % Plt Count 175 (150-450) k/uL MPV 8.2 Neutrophils % 63 % Lymphocytes % 23 % Monocytes % 8 % Eosinophils % 2 % Basophils % 2 % Neutrophils # 4.9 (1.3-7.7) k/uL Lymphocytes # 1.8 (1.0-4.8) k/uL Monocytes # 0.6 (0-1.0) k/uL Eosinophils # 0.1 (0-0.7) k/uL Basophils # 0.1 (0-0.2) k/uL PT 9.8 (9.0-12.0) sec INR 0.9 (<1.2) Sodium 136 L (137-145) mmol/L Potassium 4.3 (3.5-5.1) mmol/L Chloride 104 (98-107) mmol/L Carbon Dioxide 23 (22-30) mmol/L Anion Gap 9 mmol/L BUN 8 L (9-20) mg/dL Creatinine 0.63 L (0.66-1.25) mg/dL Est GFR (CKD-EPI)AfAm >90 (>60 ml/min/1.73 sqM) Est GFR (CKD-EPI)NonAf >90 (>60 ml/min/1.73 sqM) Glucose 116 H (74-99) mg/dL Calcium 9.3 (8.4-10.2) mg/dL Magnesium 2.3 (1.6-2.3) mg/dL Total Bilirubin 0.4 (0.2-1.3) mg/dL AST 72 H (17-59) U/L ALT 61 H (4-49) U/L Alkaline Phosphatase 81 (38-126) U/L Total Protein 7.1 (6.3-8.2) g/dL Albumin 4.2 (3.5-5.0) g/dL Serum Alcohol 337 H* mg/dL Disposition Clinical Impression: Alcohol intoxication, Fall Disposition: ADMITTED IP TO THIS HOSP Condition: Poor
[2020-04-27 06:07] LABS: Glucose,Whole Blood 131 mg/dL (75-99)
[2020-04-27] MEDS: NICOTINE 21MG/24HR PATCH TRANSDERM SCH (09:06)
[2020-04-27] MEDS: FAMOTIDINE 20 MG TAB PO SCH ×2 (09:06→20:40)
--- NOTE | 2020-04-27 10:18 | P.HPIM ---
History of Present Illness This is a pleasant 65 years old male with past medical history of hyperlipidemia, Parkinson disease, alcohol abuse, seizure, nicotine dependence. History also of bipolar and schizophrenia. Patient this morning is fully awake and oriented while he was sitting in the emergency room waiting for bed. He said he came to the hospital because he was drunk, usually he drinks 3 beers a day but yesterday he drank 12 beers and when asked him why he states because he felt thirsty but he denies any helplessness/helplessness or signs or symptoms of depression or intervention to cover her himself or hurt others. He denies hallucination or delusions. He states that after he drank too much probably a fell and slept from overdrinking Vitas looks stable. Labs including CBC, INR, BMP, liver enzymes are unremarkable, liver enzymes are only slightly elevated like AST 72 and ALT 61 but normal bilirubin at 0.4 On admission his echo level is elevated at 337 Review of Systems CONSTITUTIONAL: No fever, no malaise, no fatigue. HEENT: No recent visual problems or hearing problems. Denied any sore throat. CARDIOVASCULAR: No orthopnea, PND, no palpitations, no syncope. PULMONARY: No shortness of breath, no cough, no hemoptysis. GASTROINTESTINAL: No diarrhea, no nausea, no vomiting, no abdominal pain. Normoactive bowel sounds. NEUROLOGICAL: No headaches, no weakness, no numbness. HEMATOLOGICAL: Denies any bleeding or petechiae. GENITOURINARY: Denies any burning micturition, frequency, or urgency. MUSCULOSKELETAL/RHEUMATOLOGICAL: Denies any joint pain, swelling, or any muscle pain. ENDOCRINE: Denies any polyuria or polydipsia. Past Medical History Past Medical History: Hyperlipidemia Additional Past Medical History / Comment(s): Parkinson's, ETOH abused, smoker; seizures, started about 6 months ago History of Any Multi-Drug Resistant Organisms: None Reported Past Surgical History: Appendectomy Additional Past Surgical History / Comment(s): Cyst removal from right wrist Past Anesthesia/Blood Transfusion Reactions: No Reported Reaction Past Psychological History: Bipolar, Schizophrenia Smoking Status: Current some day smoker Past Alcohol Use History: Abuse, Daily, Heavy Past Drug Use History: Marijuana - Past Family History Father History Unknown: Yes Mother History Unknown: Yes Brother(s) Family Medical History: No Reported History Sister(s) Family Medical History: No Reported History Medications and Allergies Home Medications Medication Instructions Recorded Confirmed Type Niacin [Niacin ER] 1,000 mg PO HS 12/10/13 04/27/20 History risperiDONE 3 mg PO HS 12/10/13 04/27/20 History Thiamine [Vitamin B-1] 100 mg PO DAILY 12/27/14 04/27/20 History Ferrous Sulfate [Feosol] 325 mg PO DAILY 12/11/15 04/27/20 History Cholecalciferol (Vitamin D3) 2,000 unit PO DAILY 08/25/17 04/27/20 History [Vitamin D3] Primidone [Mysoline] 50 mg PO BID 01/25/18 04/27/20 History Albuterol Sulfate [Proair Hfa] 1 puff INHALATION RT-QID PRN 03/28/19 04/27/20 History Budesonide-Formot 160-4.5 Mcg 2 puff INHALATION RT-BID 03/29/19 04/27/20 History [Symbicort 160-4.5 Mcg Inhaler] Multivitamins, Thera [Multivitamin 1 tab PO DAILY 03/29/19 04/27/20 History (formulary)] Atorvastatin Calcium [Lipitor] 20 mg PO HS 04/27/20 04/27/20 History Allergies Allergy/AdvReac Type Severity Reaction Status Date / Time No Known Allergies Allergy Verified 04/27/20 08:44 Physical Exam Vitals: Vital Signs Temp Pulse Resp BP Pulse Ox 04/27/20 06:14 86 18 117/77 95 04/27/20 02:56 86 18 102/87 97 04/27/20 02:30 97.7 F 04/27/20 01:14 86 18 125/90 95 Intake and Output 04/26/20 04/27/20 04/27/20 22:59 06:59 14:59 Other: Weight 75.75 kg GENERAL: The patient is alert and oriented x3, not in any acute distress. Well developed, well nourished. HEENT: Pupils are round and equally reacting to light. EOMI. No scleral icterus. No conjunctival pallor. Normocephalic, atraumatic. No pharyngeal erythema. No thyromegaly. CARDIOVASCULAR: S1 and S2 present. No murmurs, rubs, or gallops. PULMONARY: Chest is clear to auscultation, no wheezing or crackles. ABDOMEN: Soft, nontender, nondistended, normoactive bowel sounds. No palpable organomegaly. MUSCULOSKELETAL: No joint swelling or deformity. EXTREMITIES: No cyanosis, clubbing, or pedal edema. NEUROLOGICAL: Gross neurological examination did not reveal any focal deficits. SKIN: No rashes. No petechiae Results CBC & Chem 7: 04/27/20 02:09 04/27/20 02:09 Labs: Abnormal Lab Results - Last 24 Hours (Table) 04/27/20 04/27/20 Range/Units 02:09 06:04 Sodium 136 L (137-145) mmol/L BUN 8 L (9-20) mg/dL Creatinine 0.63 L (0.66-1.25) mg/dL Glucose 116 H (74-99) mg/dL POC Glucose (mg/dL) 131 H (75-99) mg/dL AST 72 H (17-59) U/L ALT 61 H (4-49) U/L Serum Alcohol 337 H* mg/dL Assessment and Plan Assessment: Alcohol abuse at-risk of alcohol withdrawal and delirium tremens Mechanical fall secondary to above History of bipolar and schizophrenia Mild elevated liver enzymes secondary to alcohol affect Hyperlipidemia History of seizure Nicotine dependence Parkinson disease History of substance abuse like marijuana Plan: This is a pleasant 65 years old male who presents with alcohol abuse and at risk of withdrawal. Continue with CIWA protocol, thiamine. Psych consult. Social w orker consult. Labs and medication were reviewed.. Continue same treatment. Continue with symptomatic treatment. Resume home medication. Monitor lytes and vitals. DVT and GI prophylaxis. Further recommendations depends on the clinical course of the patient DVT prophylaxis: Subcutaneous heparin GI Prophylaxis: Pepcid PT/OT: Pending Prognosis is guarded
[2020-04-27] MEDS ORDERED: ALBUTEROL NEBULIZED 2.5 MG/3 ML INHALATION PRN (15:45)
[2020-04-27] MEDS: THIAMINE 100 MG TAB PO SCH (17:05)
[2020-04-27] MEDS: PRIMIDONE 50 MG TAB PO SCH (17:10)
[2020-04-27] MEDS: METOPROLOL TARTRATE 25 MG TAB PO SCH ×2 (17:41→17:43)
[2020-04-27] MEDS ORDERED: NICOTINE 21MG/24HR PATCH TRANSDERM STA (17:45)
[2020-04-27] MEDS ORDERED: risperiDONE 1 MG TAB PO SCH (21:00)
[2020-04-27] MEDS ORDERED: ATORVASTATIN 20 MG TAB PO SCH (21:00)
[2020-04-28] MEDS: HEPARIN SODIUM,PORCINE 5,000 UNIT/ML 1 ML VIAL SQ SCH ×2 (00:40→08:22)
[2020-04-28 00:47] VITALS: PULSE 79
[2020-04-28] MEDS: THIAMINE 100 MG TAB PO SCH (06:29)
[2020-04-28 08:14] VITALS: BP 151/85; RESP 14; TEMP 97.7
[2020-04-28] MEDS: NICOTINE 21MG/24HR PATCH TRANSDERM SCH (08:22)
[2020-04-28] MEDS: FAMOTIDINE 20 MG TAB PO SCH (08:22)
[2020-04-28] MEDS: PRIMIDONE 50 MG TAB PO SCH (08:22)
[2020-04-28] MEDS: METOPROLOL TARTRATE 25 MG TAB PO SCH (08:23)
[2020-04-28] MEDS: SYMBICORT 160-4.5 MCG INHALER INHALATION SCH ×2 (08:25→08:33)
[2020-04-28] MEDS ORDERED: CHOLECALCIFEROL 1,000 UNIT TAB PO SCH (09:00)
[2020-04-28] MEDS ORDERED: FERROUS SULFATE 325 MG TAB PO SCH (09:00)
[2020-04-28] MEDS ORDERED: INFLUENZA VACCINE (6 MOS+) 60 MCG/0.5 ML SYRINGE IM ONE (10:47)
== END 2020-04-28 13:13 | disposition home or self-care (01) ==
LOC: EC 01:12 → 6NMEDSUR 02:49 → 1SOBS 15:15
PROVIDERS: ADMIT Hospitalist; ATTEND Hospitalist
DX: F10.129 Alcohol abuse with intoxication, unspecified (principal); E78.5 Hyperlipidemia, unspecified; G20 Parkinson's disease; R56.9 Unspecified convulsions; F20.9 Schizophrenia, unspecified; F31.9 Bipolar disorder, unspecified; F17.200 Nicotine dependence, unspecified, uncomplicated; S00.03XA Contusion of scalp, initial encounter; Y90.8 Blood alcohol level of 240 mg/100 ml or more; R29.6 Repeated falls; Z91.81 History of falling; W18.30XA Fall on same level, unspecified, initial encounter; Z79.51 Long term (current) use of inhaled steroids; Z79.899 Other long term (current) drug therapy; Z90.49 Acquired absence of other specified parts of digestive tract
CPT/HCPCS: 96372 ×2; 96374; 99285; 36415; 94640; 97161; 97165; 80053; 83735; 85025; 85610; 80320; 72125; 70450; 90686; G0378 ×3; G0008; S4990 ×2; J2060; J1644; J3411

== ENCOUNTER 2020-07-23 20:58 | Observation (INO) | payer OTHER ==
[2020-07-23] MEDS ORDERED: SODIUM CHLORIDE 0.9% 1,000 ML IV ONE (21:15)
[2020-07-23] MEDS ORDERED: ONDANSETRON 4 MG/2 ML VIAL IVP STA (21:15)
[2020-07-23] MEDS ORDERED: THIAMINE 100 MG/ML 2 ML VIAL IM STA (21:16)
[2020-07-23] MEDS ORDERED: FOLIC ACID 1 MG TAB PO STA (21:16)
[2020-07-23 21:32] LABS: Glucose,Whole Blood 106 mg/dL (75-99)
--- NOTE | 2020-07-23 21:33 | ED ---
Fall HPI - General Source: patient, family, RN notes reviewed Mode of arrival: ambulatory <Tacho Orta - Last Filed: 07/23/20 22:33> <Norma Kaur - Last Filed: 07/24/20 22:52> - General Chief Complaint: Fall Stated Complaint: Weakness Time Seen by Provider: 07/23/20 21:12 - History of Present Illness Initial Comments: Patient is a 65-year-old male that presents to emergency department acutely intoxicated status post fall. According to EMS they do suspect that he had a TIA that resolved on the way to the hospital. Daughter notes that she was home sick today from work and witnessed the patient drinking at least 6 tall boys throughout the day. She did note that he ate a full meal before the attacks or having. She did note that he had several instances where he needed throughout the house. Patient denied any pain or discomfort or distress. He was laying in bed during the examination interview. Daughter does state that patient fell several times. Patient reported that he most likely hit his head but he does not remember. He denied any chest pain shortness of breath headache nausea vomiting diarrhea constipation fever fatigue chills. (Tacho Orta) Paramedics had thought the patient suffered from some left sided weakness during their transport however upon arrival, no neuro deficits appreciated. (Norma Kaur) - Related Data Home Medications Medication Instructions Recorded Confirmed risperiDONE 3 mg PO HS 12/10/13 07/23/20 Cholecalciferol (Vitamin D3) 50 mcg PO DAILY 08/25/17 07/23/20 [Vitamin D3] Primidone [Mysoline] 50 mg PO BID 01/25/18 07/23/20 Albuterol Sulfate [Proair Hfa] 1 puff INHALATION RT-QID PRN 03/28/19 07/23/20 Budesonide-Formot 160-4.5 Mcg 2 puff INHALATION RT-BID 03/29/19 07/23/20 [Symbicort 160-4.5 Mcg Inhaler] Multivitamins, Thera [Multivitamin 1 tab PO DAILY 03/29/19 07/23/20 (formulary)] Atorvastatin [Lipitor] 40 mg PO HS 07/23/20 07/23/20 Previous Rx's Medication Instructions Recorded Metoprolol Tartrate [Lopressor] 25 mg PO BID #60 tab 04/28/20 Thiamine [Vitamin B-1] 100 mg PO DAILY #30 tab 07/24/20 Allergies Allergy/AdvReac Type Severity Reaction Status Date / Time No Known Allergies Allergy Verified 07/23/20 23:17 Review of Systems ROS Other: All systems not noted in ROS Statement are negative. <OrtaTacho - Last Filed: 07/23/20 22:33> ROS Other: All systems not noted in ROS Statement are negative. <Norma Kaur Lew - Last Filed: 07/24/20 22:52> ROS Statement: Those systems with pertinent positive or pertinent negative responses have been documented in the HPI. Past Medical History Past Medical History: Hyperlipidemia Additional Past Medical History / Comment(s): Parkinson's, ETOH abused, smoker; seizures, started about 6 months ago History of Any Multi-Drug Resistant Organisms: None Reported Past Surgical History: Appendectomy Additional Past Surgical History / Comment(s): Cyst removal from right wrist Past Anesthesia/Blood Transfusion Reactions: No Reported Reaction Past Psychological History: Bipolar, Schizophrenia Smoking Status: Current some day smoker Past Alcohol Use History: Abuse, Daily, Heavy Past Drug Use History: Marijuana - Past Family History Father History Unknown: Yes Mother History Unknown: Yes Brother(s) Family Medical History: No Reported History Sister(s) Family Medical History: No Reported History <OrtaNakulk - Last Filed: 07/23/20 22:33> General Exam Limitations: no limitations, altered mental status (Cutely intoxicated) General appearance: alert, in no apparent distress, appears intoxicated Head exam: Present: atraumatic, normocephalic, normal inspection Eye exam: Present: normal appearance, PERRL, EOMI. Absent: scleral icterus, conjunctival injection, periorbital swelling ENT exam: Present: normal exam, mucous membranes moist, other (Poor dentition) Neck exam: Present: normal inspection. Absent: tenderness, meningismus, lymphadenopathy Respiratory exam: Present: normal lung sounds bilaterally. Absent: respiratory distress, wheezes, rales, rhonchi, stridor Cardiovascular Exam: Present: regular rate, normal rhythm, normal heart sounds. Absent: systolic murmur, diastolic murmur, rubs, gallop, clicks GI/Abdominal exam: Present: soft, normal bowel sounds. Absent: distended, tenderness, guarding, rebound, rigid Extremities exam: Present: normal inspection, full ROM, normal capillary refill. Absent: tenderness, pedal edema, joint swelling, calf tenderness Neurological exam: Present: alert, CN II-XII intact Psychiatric exam: Present: normal affect, normal mood Skin exam: Present: warm, dry, intact, normal color. Absent: rash <Tacho Orta - Last Filed: 07/23/20 22:33> Course Vital Signs 07/23/20 07/23/20 07/23/20 21:04 22:11 23:27 Temperature 97 F L 98.0 F Pulse Rate 94 95 Pulse Rate [ 91 Molten Iron Pourer ] Respiratory 18 18 18 Rate Blood Pressure 131/76 121/79 Blood Pressure 143/76 [Left Arm] O2 Sat by Pulse 91 L 95 95 Oximetry Medical Decision Making - Lab Data Result diagrams: 07/23/20 21:24 07/23/20 21:24 - EKG Data -: EKG Interpreted by Ms EKG shows normal: sinus rhythm Rate: normal - Radiology Data Radiology results: report reviewed, image reviewed <Tacho Orta - Last Filed: 07/23/20 22:33> - Lab Data Result diagrams: 07/23/20 21:24 07/23/20 21:24 <Norma Kaur - Last Filed: 07/24/20 22:52> - Medical Decision Making 5-year-old male acutely intoxicated status post fall and possible TIA. Labs, CT of the brain, EKG, fire protection inspector, I mean and folate acid ordered. 1 L normal saline given as bolus. Nasal cannula 2 L/m ordered, due to patient satting at 91 on room air. Patient of all serum level was [address] Kaur, it was decided to admit patient to telemetry. (Tacho Orta) I was available for consultation in the emergency department. The history and physical exam were done by the midlevel provider. I was consulted for this patients care. I reviewed the case with the midlevel provider and based on their presentation of the patient, I agree with the assessment, medical decision making and plan of care as documented. I spoke with Dr. Tay who agreed to admit the patient. Will place a neurology consult. Chart was dictated using [employer] dictation software. Attempts were made to correct any dictation errors however some typographical errors may persist. Patient was seen during a national state of emergency due to the Covid-19 pandemic. (Norma Kaur) - Lab Data Lab Results 07/23/20 07/23/20 07/23/20 Range/Units 21:24 21:24 21:24 WBC 6.7 (3.8-10.6) k/uL RBC 4.62 (4.30-5.90) m/uL Hgb 14.7 (13.0-17.5) gm/dL Hct 42.8 (39.0-53.0) % MCV 92.7 (80.0-100.0) fL MCH 31.8 (25.0-35.0) pg MCHC 34.3 (31.0-37.0) g/dL RDW 12.3 (11.5-15.5) % Plt Count 237 (150-450) k/uL MPV 7.7 Neutrophils % 67 % Lymphocytes % 22 % Monocytes % 6 % Eosinophils % 2 % Basophils % 1 % Neutrophils # 4.5 (1.3-7.7) k/uL Lymphocytes # 1.5 (1.0-4.8) k/uL Monocytes # 0.4 (0-1.0) k/uL Eosinophils # 0.1 (0-0.7) k/uL Basophils # 0.1 (0-0.2) k/uL PT 9.9 (9.0-12.0) sec INR 0.9 (<1.2) APTT 23.2 (22.0-30.0) sec Sodium 138 (137-145) mmol/L Potassium 4.4 (3.5-5.1) mmol/L Chloride 102 (98-107) mmol/L Carbon Dioxide 21 L (22-30) mmol/L Anion Gap 15 mmol/L BUN 8 L (9-20) mg/dL Creatinine 0.67 (0.66-1.25) mg/dL Est GFR (CKD-EPI)AfAm >90 (>60 ml/min/1.73 sqM) Est GFR (CKD-EPI)NonAf >90 (>60 ml/min/1.73 sqM) Glucose 103 H (74-99) mg/dL POC Glucose (mg/dL) (75-99) mg/dL POC Glu Salesperson Driver ID Calcium 9.2 (8.4-10.2) mg/dL Magnesium 2.1 (1.6-2.3) mg/dL Total Bilirubin 0.4 (0.2-1.3) mg/dL AST 64 H (17-59) U/L ALT 42 (4-49) U/L Alkaline Phosphatase 83 (38-126) U/L Total Protein 7.0 (6.3-8.2) g/dL Albumin 4.3 (3.5-5.0) g/dL Amylase 85 (30-110) U/L Lipase 202 (23-300) U/L TSH (0.465-4.680) mIU/L Serum Alcohol 252 H* mg/dL 07/23/20 07/23/20 Range/Units 21:24 21:30 WBC (3.8-10.6) k/uL RBC (4.30-5.90) m/uL Hgb (13.0-17.5) gm/dL Hct (39.0-53.0) % MCV (80.0-100.0) fL MCH (25.0-35.0) pg MCHC (31.0-37.0) g/dL RDW (11.5-15.5) % Plt Count (150-450) k/uL MPV Neutrophils % % Lymphocytes % % Monocytes % % Eosinophils % % Basophils % % Neutrophils # (1.3-7.7) k/uL Lymphocytes # (1.0-4.8) k/uL Monocytes # (0-1.0) k/uL Eosinophils # (0-0.7) k/uL Basophils # (0-0.2) k/uL PT (9.0-12.0) sec INR (<1.2) APTT (22.0-30.0) sec Sodium (137-145) mmol/L Potassium (3.5-5.1) mmol/L Chloride (98-107) mmol/L Carbon Dioxide (22-30) mmol/L Anion Gap mmol/L BUN (9-20) mg/dL Creatinine (0.66-1.25) mg/dL Est GFR (CKD-EPI)AfAm (>60 ml/min/1.73 sqM) Est GFR (CKD-EPI)NonAf (>60 ml/min/1.73 sqM) Glucose (74-99) mg/dL POC Glucose (mg/dL) 106 H (75-99) mg/dL POC Glu Salesperson Driver ID Holli Cooper Calcium (8.4-10.2) mg/dL Magnesium (1.6-2.3) mg/dL Total Bilirubin (0.2-1.3) mg/dL AST (17-59) U/L ALT (4-49) U/L Alkaline Phosphatase (38-126) U/L Total Protein (6.3-8.2) g/dL Albumin (3.5-5.0) g/dL Amylase (30-110) U/L Lipase (23-300) U/L TSH 1.350 (0.465-4.680) mIU/L Serum Alcohol mg/dL - EKG Data EKG Comments: Ventricular rate 99 bpm, WA interval 144 segs, QRS duration 88, QT/QTC 360/460, PRT axes 76/81/66. Normal sinus rhythm normal ECG. (Tacho Orta) - Radiology Data CT of brain and C-spine:Cerebral atrophy. No acute intracranial abnormality. Mild cervical spondylitic changes multilevel mild facet atrophy. No fracture seen. (Tacho Orta) Disposition Is patient prescribed a controlled substance at d/c from ED?: No Time of Disposition: 22:34 <Tacho Orta - Last Filed: 07/23/20 22:33> <Norma Kaur - Last Filed: 07/24/20 22:52> Clinical Impression: Alcohol intoxication, Parkinsonism, Fall, TIA (transient ischemic attack) Disposition: ADMITTED IP TO THIS HOSP Condition: Stable
[2020-07-23 21:36] LABS: Basophils # (A) 0.1 k/uL (0-0.2); Basophils % (A) 1 %; Eosinophils # (A) 0.1 k/uL (0-0.7); Eosinophils % (A) 2 %; HCT 42.8 % (39.0-53.0); HGB 14.7 gm/dL (13.0-17.5); Lymphocytes # (A) 1.5 k/uL (1.0-4.8); Lymphocytes % (A) 22 %; MCH 31.8 pg (25.0-35.0); MCHC 34.3 g/dL (31.0-37.0); MCV 92.7 fL (80.0-100.0); Mean Platelet Volume 7.7; Monocytes # (A) 0.4 k/uL (0-1.0); Monocytes % (A) 6 %; Neutrophils # (A) 4.5 k/uL (1.3-7.7); Neutrophils % (A) 67 %; Platelet Count 237 k/uL (150-450); RBC 4.62 m/uL (4.30-5.90); RDW 12.3 % (11.5-15.5); WBC 6.7 k/uL (3.8-10.6)
[2020-07-23 21:48] LABS: ALT 42 U/L (4-49); AST 64 U/L (17-59); African American GFR (CKD) >90 (>60 ml/min/1.73 sqM); Albumin 4.3 g/dL (3.5-5.0); Alkaline Phosphatase 83 U/L (38-126); Amylase 85 U/L (30-110); Anion Gap 15 mmol/L; Blood Urea Nitrogen 8 mg/dL (9-20); Calcium 9.2 mg/dL (8.4-10.2); Carbon Dioxide 21 mmol/L (22-30); Chloride 102 mmol/L (98-107); Glucose 103 mg/dL (74-99); Lipase 202 U/L (23-300); Magnesium 2.1 mg/dL (1.6-2.3); Non-African American GFR(CKD) >90 (>60 ml/min/1.73 sqM); Potassium 4.4 mmol/L (3.5-5.1); Sodium 138 mmol/L (137-145); Total Bilirubin 0.4 mg/dL (0.2-1.3)
[2020-07-23 21:50] LABS: INR 0.9 (<1.2); Partial Thromboplastin Time 23.2 sec (22.0-30.0); Prothrombin Time 9.9 sec (9.0-12.0)
--- NOTE | 2020-07-23 22:11 | CT ---
EXAMINATION TYPE: CT brain gely singh DATE OF EXAM: 07/23/2020 COMPARISON: 04/27/2020 HISTORY: fall, ams CT DLP: 1317.2 mGycm Automated exposure control for dose reduction was used. There is mild cerebral cortical atrophy involving the frontal lobes. There is no mass effect nor midl ine shift. There is no sign of intracranial hemorrhage. The calvarium is intact. The skull base is in tact. Cervical vertebra have normal alignment. There is no compression fracture. There is fusion anomaly of C2 and C3 vertebra. There is mild multilevel cervical facet arthropathy. There is no evidence of a f racture. I see no bony destructive process. IMPRESSION: Cerebral atrophy. No acute intracranial abnormality. Mild cervical spondylotic changes. Multilevel mild facet arthropathy. No fracture seen.
[2020-07-23 22:18] LABS: Alcohol 252 mg/dL
[2020-07-23] MEDS ORDERED: ONDANSETRON 4 MG/2 ML VIAL IVP PRN (22:28)
[2020-07-23] MEDS ORDERED: NALOXONE 0.4 MG/ML 1 ML VIAL IV PRN (22:28)
[2020-07-23] MEDS ORDERED: LORazepam 2 MG/ML INJ IV PRN (22:28)
[2020-07-23] MEDS ORDERED: SODIUM CHLORIDE 0.9% 1,000 ML IV SCH (22:30)
[2020-07-24] MEDS ORDERED: ALBUTEROL NEBULIZED 2.5 MG/3 ML INHALATION PRN (08:36)
[2020-07-24] MEDS ORDERED: MULTIVITAMINS, THERA 1 EACH TAB PO SCH (09:00)
[2020-07-24] MEDS ORDERED: THIAMINE 100 MG TAB PO SCH (09:00)
[2020-07-24] MEDS ORDERED: PRIMIDONE 50 MG TAB PO SCH (09:00)
[2020-07-24] MEDS ORDERED: METOPROLOL TARTRATE 25 MG TAB PO SCH (09:00)
[2020-07-24] MEDS ORDERED: CHOLECALCIFEROL 25 MCG (1000 IU) TABLET PO SCH (09:00)
--- NOTE | 2020-07-24 10:53 | P.CNNES ---
History of Present Illness Consult date: 07/24/20 Requesting physician: Tacho Orta Reason for Consult: concern for transient ischemic attack History of Present Illness: This is a 65-year-old gentleman with medical history of alcohol withdrawl seizure, chronic alcohol abuse, Parkinson's presented emergency department on 07/23/2020 for acute alcohol intoxication that led to a post fall. Some of the history is obtained from medical record. It is reported by the ED note that EMS suspected the patient had TIA that resolved on the way the hospital and I'm not exactly sure what was there is suspicion that the patient had TIA. It seems that the patient has been the drinking alcohol excessively and the is seems that the he's been drinking at least 6 of 24 ounces of beer per day and the per the ED note the patient the noted that the daughter stated the patient felt several times and likely his head but doesn't remember. She stated that he fell but did not lose consciousness. He denies of any focal weakness or gait difficulty getting his words out or visual disturbance or difficulty swallowing. He denies of any paresthesia. He denies of any jerk in of any his extremity at. As stated that he fell and but denies any loss of consciousness. Patient home medication is the primidone 50 mg twice a day, multiple vitamins, thiamine 100 mg daily, risperidone 3 mg daily at bedtime, Lipitor 40 mg daily at bedtime Regarding the his reported diagnosis of Parkinson disease which I found in the medical records upon asking the patient he says in the past she is to have left hand tremor and upon asking him who diagnosed him with Parkinson's she could not tell me. She denies of any further episodes of tremor since on Primodone. Workup in the hospital consisted of: Initial vital: Blood pressure of 131/76, heart rate of 94, respiratory of 18, temperature of 97 Fahrenheit oral, and pulse ox of 91 L at room air. Since the patient has been the hospital the patient has been afebrile. CT of the head is reported as cerebral atrophy. No acute intracranial ab normality. I personally reviewed the CT of the head and there is no acute ischemia or subacute ischemia and there is no intraparenchymal hemorrhage. Patient does have the moderate bilateral frontal atrophy. CT of cervical spine was reported as mild cervical spondylitic changes at. Multilevel mild facet arthropathy at. No fracture seen. White blood cell is 6.7 which is normal. Sodium is 138, glucose is 103 which is the serum and the by mouth so glucose is 106. Serum calcium is 9.2 which is normal magnesium is 2.1. Which is normal AST of 64 which is mildly elevated in the ALTs 42. Serum alcohol level was 252 Cognition study: PT of 9.9, INR 0.9 and PTT of 23.2 Of note the patient the was evaluated by bending neurologist over at [facility] and he was evaluated in [address] Alok Iqbal (for possible alcohol seizure and history of seizure on both times). Per Dr. Iqbal's notes the it is mentioned that the patient has all call withdrawal seizure and a stated that he has Parkinson's disease as one of the diagnoses as well as a bipolar disorder and possibly has some degree of underlying dementia and schizophrenia. There is no mention that the patient needs to be on a ntiepileptic drugs. Patient had 2 EEGs in our facility in 2018 and 1 in 2016 and both level reported as normal. Review of Systems Review of system: The 12 point system was reviewed and apparent positive and negative per HPI. Past Medical History Past Medical History: Hyperlipidemia Additional Past Medical History / Comment(s): Parkinson's, ETOH abused, smoker; seizures, started about 6 months ago History of Any Multi-Drug Resistant Organisms: None Reported Past Surgical History: Appendectomy Additional Past Surgical History / Comment(s): Cyst removal from right wrist Past Anesthesia/Blood Transfusion Reactions: No Reported Reaction Past Psychological History: Bipolar, Schizophrenia Smoking Status: Current some day smoker Past Alcohol Use History: Abuse, Daily, Heavy Past Drug Use History: Marijuana - Past Family History Father History Unknown: Yes Mother History Unknown: Yes Brother(s) Family Medical History: No Reported History Sister(s) Family Medical History: No Reported History Medications and Allergies Home Medications Medication Instructions Recorded Confirmed Type risperiDONE 3 mg PO HS 12/10/13 07/23/20 History Thiamine [Vitamin B-1] 100 mg PO DAILY 12/27/14 07/23/20 History Cholecalciferol (Vitamin D3) 50 mcg PO DAILY 08/25/17 07/23/20 History [Vitamin D3] Primidone [Mysoline] 50 mg PO BID 01/25/18 07/23/20 History Albuterol Sulfate [Proair Hfa] 1 puff INHALATION RT-QID PRN 03/28/19 07/23/20 History Budesonide-Formot 160-4.5 Mcg 2 puff INHALATION RT-BID 03/29/19 07/23/20 History [Symbicort 160-4.5 Mcg Inhaler] Multivitamins, Thera [Multivitamin 1 tab PO DAILY 03/29/19 07/23/20 History (formulary)] Metoprolol Tartrate [Lopressor] 25 mg PO BID #60 tab 04/28/20 07/23/20 Rx Atorvastatin [Lipitor] 40 mg PO HS 07/23/20 07/23/20 History Allergies Allergy/AdvReac Type Severity Reaction Status Date / Time No Known Allergies Allergy Verified 07/23/20 23:17 Physical Examination - Vital Signs Vital Signs: Vital Signs Temp Pulse Pulse Resp BP BP Pulse Ox 07/24/20 04:00 98.4 F 90 17 134/73 91 L 07/24/20 02:00 91 18 07/24/20 00:00 98.0 F 91 18 143/76 95 07/23/20 23:27 98.0 F 91 18 143/76 95 07/23/20 22:11 95 18 121/79 95 07/23/20 21:04 97 F L 94 18 131/76 91 L Intake and Output 07/23/20 07/24/20 07/24/20 22:59 06:59 14:59 Intake Total 200 240 Output Total 350 Balance -150 240 Intake: Oral 200 240 Output: Urine 350 Other: Weight 75.75 kg 77.2 kg GENERAL: The patient is lying in bed and is not in acute distress. CHEST: The heart rate is regular rate rhythm. No murmurs to auscultation. LUNG: Clear to auscultation bilaterally no wheezing noted throughout. Not labored breathing. ABDOMEN/GI: Bowel sounds present in all 4 quadrants. No tenderness to palpation throughout. NEUROLOGICAL: Higher mental function: The patient is awake, alert, oriented to self, place and time. Patient is following commands. No aphasia and no neglect. Cranial nerves: The pupils are round, equal and reactive to light and accommodation. Visual leiva are full to confrontation throughout. Extraocular movement is intact no nystagmus is noted. Facial sensation is normal to touch throughout. The facial strength is normal throughout. Hearing is normal bilaterally to hand rub. Tongue is midline and moved [id number] without any difficulty. No dysarthria is noted. Shoulder shrug is normal bilaterally. Motor: Gait is slightly wide based but no shuffling or ataxic gait. The strength is 5 over 5 throughout. Normal tone and bulk. Cerebellum: Normal finger to nose bilaterally. Sensation: Sensation is normal to touch throughout. Reflexes (right/left): 2+ throughout. Plantars are downgoing bilaterally. Results - Laboratory Findings CBC and BMP: 07/23/20 21:24 07/23/20 21:24 Abnormal Lab Findings: Abnormal Labs 07/23/20 07/23/20 21:24 21:30 Carbon Dioxide 21 L BUN 8 L Glucose 103 H POC Glucose (mg/dL) 106 H AST 64 H Serum Alcohol 252 H* Assessment and Plan Assessment: This is a 65-year-old gentleman with significant alcohol use that presented for multiple falls with alcohol intoxication. EMS felt the patient possibly had a TIA that resolved which I do know what led them to think that the patient had TIA. Multiple falls due to alcohol intoxication History of alcohol withdrawal seizures Doucment history of Parkinson disease Chronic alcohol use with acute alcohol intoxication (alcohol level 252) Plan: As stated in my assessment, I am not sure what led the the EMS that the patient had TIA. From the history and the physical exam is seems the patient's falls are due to his significant alcohol use which he has a chronic history. An EEG is not warranted since the patient had EEGs in the past in our facility and was evaluated by our neuro hospitalist in 2016 and 2018 and the 2 EEGs he had are normal. Patient is on thiamine 100 mg daily. I ordered vitamin B12, folate and TSH Patient is on CIWA protocol and we'll defer the management to the primary team. Regarding the patient reported history of ?Parkinson's disease, I recommended the patient needs to follow-up with a neurologist within 2-3 weeks as an outpatient for further work-up. The patient was counseled on alcohol cessation. There is no further work-up needed at this time. The plan is discussed with the patient and his nurse. Thank you for the consultation. Isaiah Mix MD Neuro-Hospitalist Time with Patient: Greater than 30
--- NOTE | 2020-07-24 11:15 | P.HPIM ---
History of Present Illness This is a pleasant 65 years old male with past medical history of hyperlipidemia, Parkinson disease, alcohol abuse, seizure, nicotine dependence. History also of bipolar and schizophrenia. Patient presents because of multiple falls with left-sided weakness which is resolved per EMS notes. However when I asked the patient he states that he fell because he was drinking 6 beers of 24 ounces, usually he drinks 3-6 beers a day with no liquor. Patient was going to the restroom when he fell with no syncope. Has headache or weakness in arms or legs at time when he fell. Also he denies chest pain or dyspnea, he has some chronic cough. No abdominal pain or diarrhea or dysuria. No fever Vitals are stable. Labs including CBC INR, BMP and liver enzymes are unremarkable. Serum alcohol is elevated When I talked to the patient he does not want to quit drinking He smokes but he cannot specify how much she does she smoke. Also smokes marijuana with no cocaine Review of Systems CONSTITUTIONAL: No fever, no malaise, no fatigue. HEENT: No recent visual problems or hearing problems. Denied any sore throat. CARDIOVASCULAR: No orthopnea, PND, no palpitations, no syncope. PULMONARY: No shortness of breath, no cough, no hemoptysis. GASTROINTESTINAL: No diarrhea, no nausea, no vomiting, no abdominal pain. Normoactive bowel sounds. NEUROLOGICAL: No headaches, no weakness, no numbness. HEMATOLOGICAL: Denies any bleeding or petechiae. GENITOURINARY: Denies any burning micturition, frequency, or urgency. MUSCULOSKELETAL/RHEUMATOLOGICAL: Denies any joint pain, swelling, or any muscle pain. ENDOCRINE: Denies any polyuria or polydipsia. Past Medical History Past Medical History: Hyperlipidemia Additional Past Medical History / Comment(s): Parkinson's, ETOH abused, smoker; seizures, started about 6 months ago History of Any Multi-Drug Resistant Organisms: None Reported Past Surgical History: Appendectomy Additional Past Surgical History / Comment(s): Cyst removal from right wrist Past Anesthesia/Blood Transfusion Reactions: No Reported Reaction Past Psychological History: Bipolar, Schizophrenia Smoking Status: Current some day smoker Past Alcohol Use History: Abuse, Daily, Heavy Past Drug Use History: Marijuana - Past Family History Father History Unknown: Yes Mother History Unknown: Yes Brother(s) Family Medical History: No Reported History Sister(s) Family Medical History: No Reported History Medications and Allergies Home Medications Medication Instructions Recorded Confirmed Type risperiDONE 3 mg PO HS 12/10/13 07/23/20 History Thiamine [Vitamin B-1] 100 mg PO DAILY 12/27/14 07/23/20 History Cholecalciferol (Vitamin D3) 50 mcg PO DAILY 08/25/17 07/23/20 History [Vitamin D3] Primidone [Mysoline] 50 mg PO BID 01/25/18 07/23/20 History Albuterol Sulfate [Proair Hfa] 1 puff INHALATION RT-QID PRN 03/28/19 07/23/20 History Budesonide-Formot 160-4.5 Mcg 2 puff INHALATION RT-BID 03/29/19 07/23/20 History [Symbicort 160-4.5 Mcg Inhaler] Multivitamins, Thera [Multivitamin 1 tab PO DAILY 03/29/19 07/23/20 History (formulary)] Metoprolol Tartrate [Lopressor] 25 mg PO BID #60 tab 04/28/20 07/23/20 Rx Atorvastatin [Lipitor] 40 mg PO HS 07/23/20 07/23/20 History Allergies Allergy/AdvReac Type Severity Reaction Status Date / Time No Known Allergies Allergy Verified 07/23/20 23:17 Physical Exam Vitals: Vital Signs Temp Pulse Pulse Resp BP BP Pulse Ox 07/24/20 04:00 98.4 F 90 17 134/73 91 L 07/24/20 02:00 91 18 07/24/20 00:00 98.0 F 91 18 143/76 95 07/23/20 23:27 98.0 F 91 18 143/76 95 07/23/20 22:11 95 18 121/79 95 07/23/20 21:04 97 F L 94 18 131/76 91 L Intake and Output 07/23/20 07/24/20 07/24/20 22:59 06:59 14:59 Intake Total 200 240 Output Total 350 Balance -150 240 Intake: Oral 200 240 Output: Urine 350 Other: Weight 75.75 kg 77.2 kg -GENERAL: The patient is alert and oriented x3, not in any acute distress. Well developed, well nourished. Initial HEENT: Pupils are round and equally reacting to light. EOMI. No scleral icterus. No conjunctival pallor. Normocephalic, atraumatic. No pharyngeal erythema. No thyromegaly. CARDIOVASCULAR: S1 and S2 present. No murmurs, rubs, or gallops. PULMONARY: Chest is clear to auscultation, no wheezing or crackles. ABDOMEN: Soft, nontender, nondistended, normoactive bowel sounds. No palpable organomegaly. MUSCULOSKELETAL: No joint swelling or deformity. EXTREMITIES: No cyanosis, clubbing, or pedal edema. NEUROLOGICAL: Gross neurological examination did not reveal any focal deficits. SKIN: No rashes. No petechiae Results CBC & Chem 7: 07/23/20 21:24 07/23/20 21:24 Labs: Abnormal Lab Results - Last 24 Hours (Table) 07/23/20 07/23/20 Range/Units 21:24 21:30 Carbon Dioxide 21 L (22-30) mmol/L BUN 8 L (9-20) mg/dL Glucose 103 H (74-99) mg/dL POC Glucose (mg/dL) 106 H (75-99) mg/dL AST 64 H (17-59) U/L Serum Alcohol 252 H* mg/dL Thrombosis Risk Factor Assmnt - Choose All That Apply Any of the Below Risk Factors Present?: No Other Risk Factors: Yes Each Risk Factor Represents 2 Points: Age 61-74 years Other congenital or acquired thrombophilia - If yes, enter type in comment: No Thrombosis Risk Factor Assessment Total Risk Factor Score: 2 Thrombosis Risk Factor Assessment Level: Low Risk Assessment and Plan Assessment: Multiple fall secondary to alcohol drinking. Patient denies weakness in legs Alcohol abuse at-risk of alcohol withdrawal and delirium tremens h/o fall secondary to above History of bipolar and schizophrenia Mild elevated liver enzymes secondary to alcohol affect Hyperlipidemia Substance abuse with marijuana Nicotine dependence History of seizure Nicotine dependence Parkinson disease History of substance abuse like marijuana Plan: This is a pleasant 65 years old male who presents with fall, alcohol abuse and possible TIA. Neuro consult , and no further workup, physical therapy evaluation. Nicotine patch. Patient is counseled to quit substance but he refuses Labs and medication were reviewed.. Continue same treatment. Continue with symptomatic treatment. Resume home medication. Monitor lytes and vitals. DVT and GI prophylaxis. Further recommendations depends on the clinical course of the patient DVT prophylaxis: Subcutaneous heparin GI Prophylaxis: Pepcid PT/OT: Pending Prognosis is guarded
[2020-07-24 11:31] VITALS: BP 158/77; PULSE 81; RESP 16; TEMP 98.1
[2020-07-24] MEDS ORDERED: SYMBICORT 160-4.5 MCG INHALER INHALATION SCH (20:00)
[2020-07-24] MEDS ORDERED: FAMOTIDINE 20 MG/2 ML VIAL IV SCH (21:00)
[2020-07-24] MEDS ORDERED: HEPARIN SODIUM,PORCINE 5,000 UNIT/ML 1 ML VIAL SQ SCH (21:00)
[2020-07-24] MEDS ORDERED: ATORVASTATIN 40 MG TAB PO SCH (21:00)
[2020-07-24] MEDS ORDERED: risperiDONE 1 MG TAB PO SCH (21:00)
[2020-07-24] MEDS ORDERED: FAMOTIDINE 20 MG TAB PO SCH (21:00)
== END 2020-07-24 13:57 | disposition home or self-care (01) ==
LOC: EC 20:58 → 3SCARD 23:08
PROVIDERS: ADMIT Hospitalist; ATTEND Hospitalist
DX: F10.129 Alcohol abuse with intoxication, unspecified (principal); R29.6 Repeated falls; R53.1 Weakness; E78.5 Hyperlipidemia, unspecified; F20.9 Schizophrenia, unspecified; R05 Cough; F12.10 Cannabis abuse, uncomplicated; F31.9 Bipolar disorder, unspecified; F17.200 Nicotine dependence, unspecified, uncomplicated; G20 Parkinson's disease; R56.9 Unspecified convulsions; Z90.49 Acquired absence of other specified parts of digestive tract; W19.XXXA Unspecified fall, initial encounter; Y90.8 Blood alcohol level of 240 mg/100 ml or more; Z79.51 Long term (current) use of inhaled steroids; Z79.899 Other long term (current) drug therapy
CPT/HCPCS: 96361; 96372; 96374; 99285; 36415; 82747; 80053; 84443; 82607; 82150; 83690; 83735; 85025; 85610; 85730; 80320; 72125; 70450; G0378 ×2; L0120 ×2; J3411; J2405; 93005

== ENCOUNTER → 2020-10-03 | Outpatient (CLI) | payer OTHER ==
--- NOTE | 2020-10-03 15:15 | CT ---
EXAMINATION TYPE: CT abdomen pelvis wo/w con DATE OF EXAM: 10/03/2020 COMPARISON: 03/28/2019 INDICATION: Bloating and diarrhea, enlarged liver DLP: 1260.0 mGycm, Automated exposure control for dose reduction was used. CONTRAST: 100 mL of Isovue 300. Study performed with Oral Contrast TECHNIQUE: Axial images were obtained from above the diaphragm to the pubic rami in the axial plane a t 5 mm thick sections. Reconstructed images are reviewed on the computer in the coronal plane. FINDINGS: Limited CT sections are obtained the lung bases. The lung bases are clear. CT ABDOMEN: Liver: Enlarged measuring 17.7 cm in craniocaudal dimension Spleen: Normal Pancreas: Normal Adrenal glands: The adrenal glands are normal. Gallbladder: Normal Kidneys: No masses are evident. No hydronephrosis is present. There are cysts present within the ri ght kidney Delayed images were obtained through the kidneys, which remain unremarkable. Aorta: Vascular calcification is within the aorta. Inferior vena cava: Normal. CT PELVIS: Loops of bowel within the abdomen and pelvis are normal. There are some diverticular changes sigmoid colon. No acute diverticulitis is evident. There are loops of bowel which are incompletely distend ed or lack oral contrast limiting their evaluation. Appendix: Not identified. No inflammatory changes or dilated tubular structures are Urinary bladder: Normal. Genitourinary structures: Prostate is mildly prominent. Osseous structures: No suspicious lytic or sclerotic lesions. IMPRESSIONS: 1. Mild diverticulosis without acute diverticulitis. 2. Right renal cysts. 3. Hepatomegaly
== END | disposition home or self-care (01) ==
LOC: RADCTMAIN 08:39
DX: N28.1 Cyst of kidney, acquired (principal); K57.30 Diverticulosis of large intestine without perforation or abscess without bleeding; R16.0 Hepatomegaly, not elsewhere classified
CPT/HCPCS: 74178; Q9967

== ENCOUNTER → 2020-10-12 | Outpatient (CLI) | payer OTHER ==
--- NOTE | 2020-10-13 08:11 | US ---
EXAMINATION TYPE: US liver DATE OF EXAM: 10/12/2020 COMPARISON: CT abdomen and pelvis 10/03/2020 CLINICAL HISTORY: R16.0 Hepatomegaly, not elsewhere classified. Enlarged liver EXAM MEASUREMENTS: Liver Length: 17.1 cm Gallbladder Wall: 0.2 cm CBD: 0.4 cm Right Kidney: 12.6 x 5.4 x 7.0 cm Pancreas: Head and tail obscured by overlying bowel gas Liver: The liver mildly heterogeneous. Upper limits of normal in size Gallbladder: wnl Evidence for sonographic Juarez's sign: neg CBD: wnl Right Kidney: Probable prominent right parapelvic cysts. There is a exophytic mid pole cyst measurin g = 2.1 x 1.7 x 1.9 cm. IMPRESSION: 1. Mildly heterogeneous liver parenchyma. 2. No gallstones. 3. Head and tail of the pancreas are obscured by overlying bowel gas. 4. Right parapelvic cysts are prominent. 2.1 cm exophytic cyst at the midpole.
== END | disposition home or self-care (01) ==
LOC: RADUSWWP 14:57
PROVIDERS: ATTEND Nurse Practitioner Acute Care
DX: R16.0 Hepatomegaly, not elsewhere classified (principal); K72.00 Acute and subacute hepatic failure without coma
CPT/HCPCS: 76705

== ENCOUNTER 2020-12-20 07:30 | Inpatient (IN) | payer OTHER ==
[2020-12-18 11:24] VITALS: BMI 23.6
[~2020-12-20 07:30] MED LIST: ALPRAZolam 0.25 MG TAB PO PRN; ALPRAZolam 0.5 MG TAB PO PRN; ASPIRIN 325 MG TAB PO PRN; CLOPIDOGREL 75 MG TAB PO PRN; NITROGLYCERIN SL TABS 0.4 MG TAB SUBLINGUAL PRN; SODIUM CHLORIDE 0.9% 1,000 ML in EMPTY BAG 1 BAG IV ONE; ceFAZolin 2 GM in SODIUM CHLORIDE 0.9% 500 ML 500 ML IRRIGATION PRN
[2020-12-20 11:39] LABS: Basophils # (A) 0.1 k/uL (0-0.2); Basophils % (A) 1 %; Eosinophils # (A) 0.2 k/uL (0-0.7); Eosinophils % (A) 2 %; HCT 42.7 % (39.0-53.0); HGB 14.1 gm/dL (13.0-17.5); Lymphocytes # (A) 1.6 k/uL (1.0-4.8); Lymphocytes % (A) 15 %; MCHC 33.1 g/dL (31.0-37.0); MCV 96.6 fL (80.0-100.0); Mean Platelet Volume 8.3; Monocytes # (A) 0.8 k/uL (0-1.0); Monocytes % (A) 8 %; Neutrophils # (A) 7.5 k/uL (1.3-7.7); Neutrophils % (A) 73 %; Platelet Count 260 k/uL (150-450); RBC 4.42 m/uL (4.30-5.90); RDW 12.6 % (11.5-15.5); WBC 10.3 k/uL (3.8-10.6)
[2020-12-20 11:55] LABS: African American GFR (CKD) >90 (>60 ml/min/1.73 sqM); Anion Gap 7 mmol/L; Blood Urea Nitrogen 15 mg/dL (9-20); Calcium 10.1 mg/dL (8.4-10.2); Carbon Dioxide 23 mmol/L (22-30); Chloride 106 mmol/L (98-107); Glucose 113 mg/dL (74-99); Non-African American GFR(CKD) >90 (>60 ml/min/1.73 sqM); Potassium 4.5 mmol/L (3.5-5.1); Sodium 136 mmol/L (137-145)
[2020-12-20] MEDS ORDERED: LIDOCAINE 1% INJ 10MG/ML (20 ML MDV) SQ ONE (14:36)
[2020-12-20] MEDS ORDERED: IV FLUID CONTINUATION 1,000 ML IV ONE (14:39)
[2020-12-20] MEDS ORDERED: HEPARIN SODIUM 1,000 UN/ML (10ML VL) IV ONE (14:51)
[2020-12-20] MEDS ORDERED: IOPAMIDOL-250 100ML BTL INTRAARTER ONE (15:02)
[2020-12-20] MEDS ORDERED: SODIUM CHLORIDE 0.9% 1,000 ML IV SCH (15:15)
--- NOTE | 2020-12-20 15:35 | IR ---
EXAMINATION TYPE: IR angio carotid cereb LT DATE OF EXAM: 12/20/2020 COMPARISON: NONE HISTORY: Fluoroscopy time. Fluoroscopy was provided to the referring clinician.
[2020-12-20] MEDS ORDERED: NICOTINE 14MG/24HR PATCH TRANSDERM STA (18:12)
[2020-12-20] MEDS: METOPROLOL TARTRATE 25 MG TAB PO SCH (20:50)
[2020-12-20] MEDS ORDERED: ATORVASTATIN 40 MG TAB PO SCH (21:00)
--- NOTE | 2020-12-20 21:21 | AN ---
ANGIOGRAPHY REPORT DATE OF SERVICE: 12/20/2020 PERFORMING PHYSICIAN: Alfonzo Lowe MD. PROCEDURE PERFORMED: 1. Aortic arch angiogram. 2. Selective left common and left internal carotid angiogram. 3. Selective right common femoral artery angiogram. 4. Ultrasound-guided access of the right common femoral artery. INDICATION: This is a 65-year-old gentleman who sees Dr. Pool in the office regularly, who was experiencing symptoms of dizziness and lightheadedness and he was diagnosed with possible TIA. He was seen by a neurologist, where an MRI and MRA were performed and that revealed severe disease involving the left internal carotid artery. The patient was brought today to undergo stenting of the left internal carotid artery. APPROACH: Right common femoral artery. COMPLICATION: None. LEVEL OF SEDATION: Sedation was not given during this procedure. PROCEDURE DESCRIPTION: After obtaining an informed consent, the patient was brought to the cardiac labor conciliator. The right common femoral artery was cannulated using micropuncture technique. Under ultrasound guidance, the micropuncture wire passed easily, then I placed a 6-Italian 9 cm sheath at the right common femoral artery and the sheath was advanced over the wire and dilator all the way to the distal aortic arch. I did an aortic arch angiogram using 5-Italian pigtail catheter and using digital subtraction with a power injection. After that, I did select the left common carotid artery and I did selective left common and left internal carotid angiogram using a Rim catheter through the sheath, after I advanced the sheath over the rim catheter, as well as a 0.035 stiff Glidewire. The procedure was completed without any complication. AORTIC ARCH ANGIOGRAM: The aortic arch angiogram was performed in the SAMI projection and using a power injection. The aortic arch is a type 1 arch. SELECTIVE CAROTID ANGIOGRAM: The left common carotid artery appeared to be angiographically normal. The left internal carotid artery has a critical lesion appeared to be in the range of 99.9% with string sign and possible, also what seems to be potential thrombus, just proximal to the lesion because of the haziness there. POSTPROCEDURE MANAGEMENT: 1. Critical left internal carotid artery disease with a string sign. 2. Type 1 aortic arch. POSTPROCEDURE MANAGEMENT: 1. I recommended obtaining a surgical consult for the evaluation of left carotid endarterectomy. Given the above anatomy, with string sign and possible haziness with possible thrombotic lesion. 2. The patient will be kept on the observational unit. 3. I already contacted Dr. Tinajero, who is going to see the patient in the next 12-24 hours. MMJEANA / CURLYN: [id number] /
[2020-12-21 00:25] VITALS: RESP 18
[2020-12-21] MEDS: METOPROLOL TARTRATE 25 MG TAB PO SCH (08:30)
[2020-12-21] MEDS ORDERED: CHOLECALCIFEROL 25 MCG (1000 IU) TABLET PO SCH (09:00)
[2020-12-21] MEDS ORDERED: [UNRECOGNIZED DRUG - OTHER] PO SCH (09:00)
[2020-12-21] MEDS ORDERED: MULTIVITAMINS, THERA 1 EACH TAB PO SCH (09:00)
[2020-12-21] MEDS ORDERED: THIAMINE 100 MG TAB PO SCH (09:00)
[2020-12-21] MEDS ORDERED: NICOTINE 14MG/24HR PATCH TRANSDERM SCH (09:00)
[2020-12-21 09:05] VITALS: BP 146/87; PULSE 75; TEMP 98.2
--- NOTE | 2020-12-21 09:55 | US ---
EXAMINATION TYPE: US carotid duplex BILAT DATE OF EXAM: 12/21/2020 COMPARISON: NONE CLINICAL HISTORY: carotid stenosis. left carotid stenosis EXAM MEASUREMENTS: RIGHT: Peak Systolic Velocity (PSV) cm/sec ----- Right CCA: 121.0 ----- Right ICA: 124.2 ----- Right ECA: 86.6 ICA/CCA ratio: 1.0 RIGHT: End Diastole cm/sec ----- Right CCA: 22.5 ----- Right ICA: 32.1 ----- Right ECA: 12.8 LEFT: Peak Systolic Velocity (PSV) cm/sec ----- Left CCA: 48.3 ----- Left ICA: 394.2 ----- Left ECA: 77.4 ICA/CCA ratio: 8.2 LEFT: End Diastole cm/sec ----- Left CCA: 9.2 ----- Left ICA: 144.7 ----- Left ECA: 0.0 VERTEBRALS (direction of flow): Right Vertebral: Antegrade Left Vertebral: Antegrade Rhythm: Normal Moderate plaque right bifurcation. Severe plaque left bifurcation. Increased velocities left ICA IMPRESSION: 1. Moderate atherosclerotic change with findings suggestive of severe to critical stenosis involving the proximal left internal carotid artery. Recommend correlation with dedicated arteriogram atheroscl erotic NASCET criteria was used in interpretation of this exam? Criteria for Assigning % of Stenosis / Diameter reduction (Estimation based on the indirect measurements of the internal carotid artery velocities (ICA PSV). 1. Normal (no stenosis)=ICA PSV < 125 cm/s: ratio < 2.0: ICA EDV<40 cm/s. 2. Less than 50% stenosis=ICA PSV < 125 cm/s: ratio < 2.0: ICA EDV<40 cm/s. 3. 50 to 69% stenosis=ICA PSV of 125 to 230 cm/s: ration 2.0 ? 4.0: ICA EDV 40-100 cm/s. 4. Greater than 70% stenosis to near occlusion= ICA PSV > 230 cm/s: ratio > 4.0: ICA EDV > 100 cm/s. 5. Near occlusion= ICA PSV velocities may be low or undetectable: variable ratio and ICA EDV. 6. Total occlusion=unable to detect flow.
--- NOTE | 2020-12-21 11:52 | P.GSCN ---
History of Present Illness Consult date: 12/21/20 Reason for Consult: Left ICA stenosis Requesting physician: Alfonzo Lowe History of present illness: Is a 65-year-old white male who presented to the hospital yesterday to undergo stenting of the left internal carotid artery by Dr. Lowe, however was unable to perform. He underwent a selective carotid angiogram that showed left common carotid artery appeared to be angiographically normal. The left internal carotid artery has a critical lesion appeared to be in the range of 99.9% with string sign and possible potential thrombus, just proximal to the lesion because of the haziness there. Therefore vascular surgery was consult and for evaluation of left carotid endarterectomy. The patient has a past medical his tory of hypertension, hyperlipidemia, and is a current smoker 1 pack per day. He sees Dr. Pool from cardiology. The patient reportedly had been experiencing symptoms of dizziness and lightheadedness and was diagnosed with a possible TIA. He was seen by a neurologist and underwent an MRI and MRA that revealed severe disease involving the left internal carotid artery. The patient currently sirisha es any focal deficits, shortness of breath, chest pain, abdominal pain, nausea, or vomiting. He has had no evidence of bleeding, he is able to move bilateral lower extremities without any difficulty. Review of Systems Routine point review of systems was completed all pertinent positives and negatives as stated in the HPI. Past Medical History Past Medical History: Hyperlipidemia, Hypertension, Seizure Disorder Additional Past Medical History / Comment(s): Parkinson's, ETOH abuse History of Any Multi-Drug Resistant Organisms: None Reported Past Surgical History: Appendectomy Additional Past Surgical History / Comment(s): Cyst removal from right wrist Past Anesthesia/Blood Transfusion Reactions: No Reported Reaction Past Psychological History: Bipolar, Schizophrenia Smoking Status: Current some day smoker Past Alcohol Use History: Abuse, Daily, Heavy Past Drug Use History: Marijuana - Past Family History Father History Unknown: Yes Mother History Unknown: Yes Brother(s) Family Medical History: No Reported History Sister(s) Family Medical History: No Reported History Medications and Allergies Home Medications Medication Instructions Recorded Confirmed Type Cholecalciferol (Vitamin D3) 50 mcg PO DAILY 08/25/17 12/18/20 History [Vitamin D3] Multivitamins, Thera [Multivitamin 1 tab PO DAILY 03/29/19 12/18/20 History (formulary)] Metoprolol Tartrate [Lopressor] 25 mg PO BID #60 tab 04/28/20 12/20/20 Rx Atorvastatin [Lipitor] 40 mg PO HS 07/23/20 12/18/20 History Thiamine [Vitamin B-1] 100 mg PO DAILY #30 tab 07/24/20 12/18/20 Rx [id number] Unk 1 tab PO DIRECTED 12/18/20 12/18/20 History Primidone [Mysoline] 12/20/20 History risperiDONE [RisperDAL] 3 mg PO HS 12/20/20 12/20/20 History Apixaban [Eliquis Starter Pack 0 mg PO DIRECTED 30 Days #1 pack 12/21/20 Rx (for VTE)] Allergies Allergy/AdvReac Type Severity Reaction Status Date / Time No Known Allergies Allergy Verified 12/18/20 11:14 Surgical - Exam Vital Signs Temp Pulse Resp BP Pulse Ox 98.5 F 77 16 158/79 98 12/20/20 11:48 12/20/20 11:48 12/20/20 11:48 12/20/20 11:48 12/20/20 11:48 General appearance: The patient is alert, oriented, appears in no acute distress. HET: Head is normocephalic and atraumatic. Pupils are equal and reactive. Oropharynx is clear without lesions. Neck: Supple without lymphadenopathy. Trachea midline. Heart: S1 S2. Regular rate and rhythm. Lungs: Clear to auscultation. Abdomen: Soft, nontender, nondistended. Extremities: Normal skin color and turgor. Palpable bilateral radial pulses, bilateral palpable DP and PT pulses. Neurological: No focal deficits. Alert and oriented 3. Results - Labs 12/20/20 11:30 12/20/20 11:30 Abnormal Lab Results - Last 24 Hours (Table) 12/20/20 Range/Units 11:30 Sodium 136 L (137-145) mmol/L Creatinine 0.60 L (0.66-1.25) mg/dL Glucose 113 H (74-99) mg/dL Diabetes panel 12/20/20 Range/Units 11:30 Sodium 136 L (137-145) mmol/L Potassium 4.5 (3.5-5.1) mmol/L Chloride 106 (98-107) mmol/L Carbon Dioxide 23 (22-30) mmol/L BUN 15 (9-20) mg/dL Creatinine 0.60 L (0.66-1.25) mg/dL Glucose 113 H (74-99) mg/dL Calcium 10.1 (8.4-10.2) mg/dL Calcium panel 12/20/20 Range/Units 11:30 Calcium 10.1 (8.4-10.2) mg/dL Pituitary panel 12/20/20 Range/Units 11:30 Sodium 136 L (137-145) mmol/L Potassium 4.5 (3.5-5.1) mmol/L Chloride 106 (98-107) mmol/L Carbon Dioxide 23 (22-30) mmol/L BUN 15 (9-20) mg/dL Creatinine 0.60 L (0.66-1.25) mg/dL Glucose 113 H (74-99) mg/dL Calcium 10.1 (8.4-10.2) mg/dL Adrenal panel 12/20/20 Range/Units 11:30 Sodium 136 L (137-145) mmol/L Potassium 4.5 (3.5-5.1) mmol/L Chloride 106 (98-107) mmol/L Carbon Dioxide 23 (22-30) mmol/L BUN 15 (9-20) mg/dL Creatinine 0.60 L (0.66-1.25) mg/dL Glucose 113 H (74-99) mg/dL Calcium 10.1 (8.4-10.2) mg/dL Assessment and Plan Assessment: 1. Severe left internal carotid artery stenosis 2. Hypertension 3. Hyperlipidemia 4. Current smoker Plan: 1. Obtain carotid duplex 2. Continue current medications 3. Discussed importance of smoking cessation 4. Discussed surgical intervention with patient and plan for outpatient carotid endarterectomy. Thank you for this consultation, patient may be discharged home after carotid duplex completed. Patient will follow up next week for outpatient surgery. The impression and plan of care has been dictated as directed. Dr. Tinajero I performed a history and examination of this patient, discussed the same with the dictator. I agree with the dictator's note ,documented as a scribe. Any additional findings or plans will be noted.
--- NOTE | 2020-12-21 13:08 | DS ---
DISCHARGE SUMMARY DATE OF ADMISSION: December 20, 2020. DISCHARGE DATE: December 21, 2020. BRIEF HISTORY: This is a very pleasant 65-year-old gentleman who sees Dr. Polo regularly and was diagnosed recently with severe symptomatic disease involving the left internal carotid artery. He underwent yesterday an angiogram and that revealed critical left internal carotid artery disease with string sign and possible thrombus. Because of that, I advised the patient to undergo left carotid endarterectomy. He was seen today by Dr. Tinajero who agreed with the surgery and she is going to do that as an outpatient. The right groin is soft and nontender with mild bruises. The patient is going to be discharged home on the same medication he has taken and he will follow up with Dr. Pool in the office in a week. MMELOL / CURLYN: [id number] /
[2020-12-22] MEDS ORDERED: ASPIRIN 81 MG PO SCH (09:00)
== END 2020-12-21 12:57 | disposition home or self-care (01) | DRG 68 ==
LOC: 2ORMAIN 11:08 → 3SCARD 16:28
PROVIDERS: ADMIT Internal Medicine Interventional Cardiology; ATTEND Internal Medicine Interventional Cardiology
DX: I65.22 Occlusion and stenosis of left carotid artery (principal); E78.5 Hyperlipidemia, unspecified; F17.210 Nicotine dependence, cigarettes, uncomplicated; F20.9 Schizophrenia, unspecified; F31.9 Bipolar disorder, unspecified; G20 Parkinson's disease; G40.909 Epilepsy, unspecified, not intractable, without status epilepticus; I10 Essential (primary) hypertension; Z79.899 Other long term (current) drug therapy
CPT/HCPCS: 36222; 80048; 85025; 93880

== ENCOUNTER 2020-12-29 07:02 | Inpatient (IN) | payer OTHER ==
[2020-12-27 13:02] VITALS: BMI 25.5
[2020-12-29] MEDS ORDERED: LIDOCAINE 1% (10MG/ML) FOR IV START INTRADERMA ONE ×2 (07:40→08:17)
[2020-12-29] MEDS ORDERED: LACTATED RINGERS 1,000 ML IV ONE ×3 (07:40→11:07)
[2020-12-29] MEDS ORDERED: MIDAZOLAM 2 MG/2 ML VIAL IV ONE (08:04)
[2020-12-29] MEDS ORDERED: ONDANSETRON 4 MG/2 ML VIAL ONE (08:35)
[2020-12-29] MEDS ORDERED: DEXAMETHASONE SOD PHOSPHATE 4 MG/ML 1 ML VIAL IV ONE (08:38)
[2020-12-29] MEDS ORDERED: ONDANSETRON 4 MG/2 ML VIAL IVP ONE (08:39)
[2020-12-29] MEDS ORDERED: GLYCOPYRROLATE 0.2 MG/ML 2 ML VIAL ONE (08:48)
[2020-12-29] MEDS ORDERED: NEOSTIGMINE 1 MG/ML 10 ML VIAL ONE (08:48)
[2020-12-29] MEDS ORDERED: HEPARIN SODIUM,PORCINE 10,000 UNIT/ML 1 ML VIAL ONE (08:48)
[2020-12-29] MEDS ORDERED: MIDAZOLAM 2 MG/2 ML VIAL ONE (08:48)
[2020-12-29] MEDS ORDERED: SUCCINYLCHOLINE CHLORIDE 100 MG/5 ML SYR IV ONE (08:48)
[2020-12-29] MEDS ORDERED: LIDOCAINE 1% INJ 10MG/ML (20 ML MDV) ONE (08:48)
[2020-12-29] MEDS ORDERED: fentaNYL (PF) 50 MCG/ML 2 ML AMP ONE (08:48)
[2020-12-29] MEDS ORDERED: PROPOFOL 10 MG/ML 20 ML VIAL IV ONE (08:48)
[2020-12-29] MEDS ORDERED: PHENYLEPHRINE-0.9% NACL SYG 1,000 MCG/10 ML SYRINGE ONE (08:48)
[2020-12-29] MEDS ORDERED: ROCURONIUM 10 MG/ML (5 ML VIAL) IV ONE (08:48)
[2020-12-29] MEDS ORDERED: HEPARIN SODIUM (1,000 UNIT/ML) 2,000 UNIT in SODIUM CHLORIDE 0.9% 1,000 ML IRRIGATION ONE (09:27)
[2020-12-29] MEDS ORDERED: ceFAZolin 2 GM in SODIUM CHLORIDE 0.9% 500 ML 500 ML IRRIGATION ONE (09:28)
[2020-12-29] MEDS ORDERED: LIDOCAINE 1% INJ 10MG/ML (20 ML MDV) SQ ONE (09:34)
--- NOTE | 2020-12-29 09:53 | P.ANPRN ---
Procedure Note - Anesthesia - Invasive Line Right Arterial Line Time Out Performed: Yes Date of Procedure: 12/29/20 Time of Procedure: 08:04 Location of Patient: PreOp Preparation: Sterile Prep, Sterile Dressing Arterial Line Location: Radial Ultrasound Used: No Purpose - Visualization and Identification of Vasculature: No Needle Guage: 20g Image Stored and Saved: Yes Narrative: Central line placement per sterile protocol utilized.
--- NOTE | 2020-12-29 13:08 | P.OP ---
Date of Procedure: 12/29/20 Description of Procedure: Preoperative Diagnosis: Left[] Internal carotid artery stenosis Postoperative Diagnosis: Same, ulcerated, hemorrhagic plaque Procedure: [Left] carotid endarterectomy with patch angioplasty Anesthesia: GET Surgeon: Carmita Tinajero DO Estimated Blood Loss (ml): [100 mL] IV Fluids: [See records] Urine Output: [See records] Specimen: [Left carotid plaque] Condition: stable Disposition: PACU Asst.: Irina Findings and indications: [Patient is a 65-year-old male who was initially having issues of right-sided weakness and some motor difficulties occasionally. He was initially seen by cardiology and was referred to the cardiology interventionalists who performed a cerebral angiogram. Upon imaging he decided not to go forward with the stent and recommended carotid endarterectomy due to the abnormality of the flow. Based upon the ultrasound and angiogram it was decided to set the patient up for a left carotid endarterectomy with patch angioplasty. Risks and benefits were discussed. The patient seemingly understood and was willing to proceed as such] Procedure in detail: After written informed consent was obtained the patient all risks benefits and competitions were described the patient is brought to the operative suite and laid in a supine position. The area of the neck was prepped and draped in usual sterile fashion after appropriate anesthetic was performed per the anesthesiologist. A timeout was performed in normal fashion antibiotics were administered prior to incision. An oblique incision was then created just anterior to the sternocleidomastoid musculature with a 10 blade scalpel and dissection was carried down to the carotid sheath. The carotid sheath was then entered after facial vein was located and suture ligated in normal fashion. The common carotid, internal carotid, external carotid and superior thyroid arteries were located and dissected free in a meticulous fashion circumferentially and controlled with vessel loops. There was significant difficulty due to a very high bifurcation as well as a large carotid bulb. The external carotid artery had multiple large branches very close to the takeoff. They were also encircled with vessel loop. Attention was then placed to locating the vagus nerve as well as hypoglossal nerve which were both spared. Once controlled, patient was administered heparin and followed with ACTs for appropriate heparinization. Once ACT was appropriate, the proximal and distal aspects of the dissection were then controlled with vascular clamps. Arteriotomy was then created with 11 blade scalpel and extended with Lovell Pearce scissors. Utilizing pressure tubing stump pressures were obtained and were [over 80]. No shunt was required. An endarterectomy was then performed with a [place] elevator. The plaque was transected proximally and then feathered at the distal aspect of the internal carotid artery and removed. The plaque itself was very soft. It appeared to be an ulcerated and hemorrhagic The area was copiously irrigated with heparinized saline and all free debris was removed. A 0.8 x 8 cm bovine pericardial patch was then chosen and patch angioplasty was performed with 6-0 Prolene suture in a running fashion. Prior to last sutures being placed the inflow was released flushing any free debris out of the patch. This was reclamped and the internal carotid artery was released revealing good brisk flow and was once again reclamped. The external carotid and superior t hyroid artery were then released followed by the common carotid artery to allow any free debris to be flushed into the external system. Final sutures were placed and secured. Internal carotid artery control was then released. Good pulsatile flow was noted through the patch and a Doppler was utilized demonstrating good brisk flow into the internal, external carotid arteries without any signs of obstruction. Hemostasis was then assured with interrupted sutures of 6-0 Prolene as well as thrombin and Gelfoam. A 10-[place] PIPPA drain was then placed in normal fashion and secured with 3-0 nylon suture. The incision was then closed in a multilayer fashion after hemostasis was assured. The skin was then cleansed and dressings were placed. Patient tolerated the procedure well and was following commands and moving all extremities. Patient was then sent to PACU for recovery.
[2020-12-29] MEDS ORDERED: MAG HYDROX/AL HYDROX/SIMETH 30 ML CUP PO PRN (13:09)
[2020-12-29] MEDS ORDERED: BENZOCAINE/MENTHOL LOZENG 1 EACH LOZENGE MUCOUS MEM PRN (13:09)
[2020-12-29] MEDS ORDERED: TRIMETHOBENZAMIDE 100 MG/ML 2 ML VIAL IM PRN (13:09)
[2020-12-29] MEDS ORDERED: ACETAMINOPHEN TAB 325 MG TAB PO PRN (13:09)
[2020-12-29 14:28] LABS: Glucose,Whole Blood 136 mg/dL (75-99)
[2020-12-29] MEDS: LACTATED RINGERS 1,000 ML IV SCH (14:48)
[2020-12-29] MEDS ORDERED: NICOTINE 21MG/24HR PATCH TRANSDERM STA (17:44)
[2020-12-30 03:49] LABS: Basophils % (A) 0 %; Eosinophils % (A) 0 %; HCT 35.4 % (39.0-53.0); Lymphocytes # (A) 1.5 k/uL (1.0-4.8); Lymphocytes % (A) 14 %; MCH 32.7 pg (25.0-35.0); MCV 96.3 fL (80.0-100.0); Mean Platelet Volume 8.3; Monocytes # (A) 0.7 k/uL (0-1.0); Monocytes % (A) 6 %; Neutrophils # (A) 8.3 k/uL (1.3-7.7); Neutrophils % (A) 78 %; Platelet Count 241 k/uL (150-450); RBC 3.68 m/uL (4.30-5.90); RDW 13.2 % (11.5-15.5); WBC 10.7 k/uL (3.8-10.6)
[2020-12-30 06:07] LABS: African American GFR (CKD) >90 (>60 ml/min/1.73 sqM); Anion Gap 5 mmol/L; Blood Urea Nitrogen 3 mg/dL (9-20); Calcium 8.8 mg/dL (8.4-10.2); Carbon Dioxide 26 mmol/L (22-30); Chloride 104 mmol/L (98-107); Glucose 115 mg/dL (74-99); Non-African American GFR(CKD) >90 (>60 ml/min/1.73 sqM); Potassium 3.8 mmol/L (3.5-5.1); Sodium 135 mmol/L (137-145)
[2020-12-30] MEDS: LACTATED RINGERS 1,000 ML IV SCH (06:27)
[2020-12-30] MEDS ORDERED: POTASSIUM CHLORIDE ER 20 MEQ TAB.ER PO SCH (07:00)
[2020-12-30 08:17] VITALS: TEMP 97.9
[2020-12-30] MEDS ORDERED: ASPIRIN 81 MG PO SCH (09:00)
[2020-12-30] MEDS ORDERED: NICOTINE 21MG/24HR PATCH TRANSDERM SCH (09:00)
[2020-12-30] MEDS ORDERED: APIXABAN 5 MG TAB PO SCH (10:15)
[2020-12-30] MEDS ORDERED: IPRATROPIUM-ALBUTEROL 3 ML NEB INHALATION PRN (10:57)
[2020-12-30 13:13] VITALS: BP 121/79; PULSE 64; RESP 25
--- NOTE | 2020-12-30 13:23 | P.CNPUL ---
History of Present Illness Consult date: 12/30/20 Requesting physician: Carmita Tinajero Reason for consult: other (Postoperative ICU management.) Chief complaint: Status post left carotid endarterectomy with patch angioplasty History of present illness: This is a 65-year-old white male, , [id number] smoking history, recently seen by cardiology and by vascular surgery for right sided weakness and some motor difficulties occasionally. A cerebral angiogram was done by the creative/art director/Dr. Islas, and the patient was found to have significant left carotid artery stenosis, hence the patient was referred to surgery, and yesterday he underwent elective left carotid endarterectomy and patch angioplasty. Postoperatively the patient was admitted to the ICU, and I was asked to see him on consultation. Patient was seen today, he is basically doing well, asymptomatic, he does have chronic occasional cough and wheezing, patient is maintained on bronchodilators at home, went ahead and recommended starting the bronchodilators including DuoNeb and Symbicort. Patient is hemodynamically stable, no major issues overnight. CBC today is relatively normal electrolytes are normal renal profile is normal. Patient is hemodynamically stable, blood pressure is 121/79, and his O2 saturation is 94% on room air. Review of Systems CONSTITUTIONAL: No fever, no malaise, no fatigue. HEENT: No recent visual problems or hearing problems. Denied any sore throat. CARDIOVASCULAR: No orthopnea, PND, no palpitations, no syncope. PULMONARY: Occasional cough and wheezing GASTROINTESTINAL: No diarrhea, no nausea, no vomiting, no abdominal pain. Normoactive bowel sounds. NEUROLOGICAL: As noted in HPI. Patient is known to have history of seizure disorder, and questionable Parkinson's disease HEMATOLOGICAL: Denies any bleeding or petechiae. GENITOURINARY: Denies any burning micturition, frequency, or urgency. MUSCULOSKELETAL/RHEUMATOLOGICAL: Denies any joint pain, swelling, or any muscle pain. ENDOCRINE: Denies any polyuria or polydipsia. 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, Parkinson's, ETOH abuse,enlarged liver History of Any Multi-Drug Resistant Organisms: None Reported Past Surgical History: Appendectomy Additional Past Surgical History / Comment(s): aborted carotid stent, Cyst removal from right wrist Past Anesthesia/Blood Transfusion Reactions: No Reported Reaction Additional Past Anesthesia/Blood Transfusion Reaction / Comment(s): no hx blood transfusion Smoking Status: Current every day smoker - Past Family History Father History Unknown: Yes Mother History Unknown: Yes Brother(s) Family Medical History: No Reported History Sister(s) Family Medical History: No Reported History Medications and Allergies Home Medications Medication Instructions Recorded Confirmed Type Cholecalciferol (Vitamin D3) 50 mcg PO DAILY 08/25/17 12/27/20 History [Vitamin D3] Multivitamins, Thera [Multivitamin 1 tab PO DAILY 03/29/19 12/27/20 History (formulary)] Metoprolol Tartrate [Lopressor] 25 mg PO BID #60 tab 04/28/20 12/27/20 Rx Atorvastatin [Lipitor] 40 mg PO HS 07/23/20 12/27/20 History Thiamine [Vitamin B-1] 100 mg PO DAILY #30 tab 07/24/20 12/27/20 Rx Th-Myofjw-Huil Unk 1 tab PO DIRECTED 12/18/20 12/27/20 History Primidone [Mysoline] 1 dose PO DIRECTED 12/20/20 12/27/20 History risperiDONE [RisperDAL] 3 mg PO HS 12/20/20 12/27/20 History Apixaban [Eliquis] 5 mg PO BID 12/27/20 12/27/20 History Allergies Allergy/AdvReac Type Severity Reaction Status Date / Time No Known Allergies Allergy Verified 12/29/20 07:22 Physical Exam Vitals: Vital Signs Temp Pulse Pulse Resp BP BP BP 12/30/20 13:00 64 25 H 121/79 12/30/20 12:00 73 12 126/67 12/30/20 11:00 60 14 130/73 12/30/20 10:00 64 18 122/74 12/30/20 09:00 64 19 118/70 12/30/20 08:00 97.9 F 65 19 123/69 12/30/20 07:00 64 17 115/74 12/30/20 06:00 61 17 129/79 12/30/20 05:00 61 23 128/69 12/30/20 04:00 98 F 65 16 128/69 12/30/20 03:45 12 12/30/20 03:00 56 L 12 132/75 12/30/20 02:00 60 15 128/73 12/30/20 01:00 57 L 16 12/30/20 00:11 59 L 20 12/30/20 00:00 97.7 F 59 L 13 124/73 12/29/20 23:00 60 18 12/29/20 22:15 64 21 121/73 12/29/20 22:00 59 L 19 115/68 12/29/20 21:45 64 14 115/68 12/29/20 21:30 61 17 115/68 12/29/20 21:15 64 18 115/68 12/29/20 21:00 63 20 12/29/20 20:45 66 14 12/29/20 20:30 63 16 12/29/20 20:15 67 16 12/29/20 20:00 64 23 127/73 12/29/20 19:45 64 17 12/29/20 19:30 64 14 12/29/20 19:15 63 21 12/29/20 19:00 67 19 12/29/20 18:45 64 20 12/29/20 18:30 64 19 12/29/20 18:15 73 13 116/67 12/29/20 18:00 69 19 12/29/20 17:45 69 20 125/76 12/29/20 17:30 73 15 125/76 12/29/20 17:15 73 13 125/76 12/29/20 17:00 87 20 12/29/20 16:45 91 14 12/29/20 16:30 63 19 12/29/20 16:15 66 117/66 12/29/20 16:00 78 16 124/67 12/29/20 15:45 68 20 12/29/20 15:30 74 13 12/29/20 15:15 61 12 12/29/20 15:00 65 17 123/75 12/29/20 14:45 65 15 12/29/20 14:36 99.1 F 12/29/20 14:30 99.1 F 126/70 12/29/20 14:00 65 16 122/68 123/54 12/29/20 13:45 65 18 122/72 131/56 12/29/20 13:30 68 16 129/55 Pulse Ox 12/30/20 13:00 94 L 12/30/20 12:00 95 12/30/20 11:00 97 12/30/20 10:00 93 L 12/30/20 09:00 94 L 12/30/20 08:00 94 L 12/30/20 07:00 93 L 12/30/20 06:00 94 L 12/30/20 05:00 97 12/30/20 04:00 96 12/30/20 03:45 12/30/20 03:00 97 12/30/20 02:00 97 12/30/20 01:00 96 12/30/20 00:11 97 12/30/20 00:00 97 12/29/20 23:00 97 12/29/20 22:15 97 12/29/20 22:00 98 12/29/20 21:45 97 12/29/20 21:30 97 12/29/20 21:15 98 12/29/20 21:00 97 12/29/20 20:45 97 12/29/20 20:30 96 12/29/20 20:15 97 12/29/20 20:00 96 12/29/20 19:45 97 12/29/20 19:30 97 12/29/20 19:15 97 12/29/20 19:00 97 12/29/20 18:45 97 12/29/20 18:30 97 12/29/20 18:15 96 12/29/20 18:00 97 12/29/20 17:45 97 12/29/20 17:30 98 12/29/20 17:15 97 12/29/20 17:00 97 12/29/20 16:45 97 12/29/20 16:30 97 12/29/20 16:15 97 12/29/20 16:00 97 12/29/20 15:45 98 12/29/20 15:30 97 12/29/20 15:15 97 12/29/20 15:00 97 12/29/20 14:45 97 12/29/20 14:36 12/29/20 14:30 98 12/29/20 14:00 97 12/29/20 13:45 98 12/29/20 13:30 95 Intake and Output 12/29/20 12/30/20 12/30/20 22:59 06:59 14:59 Intake Total 1244 1022 1075 Output Total 1180 1525 450 Balance 64 -503 625 Intake: IV 800 800 400 Lactated Ringers 1,000 ml 800 800 400 @ 100 mls/hr IV .[facility] Rx#:[id number] Oral 444 222 675 Output: Drainage 0 15 Left Neck 0 15 Urine 1180 1510 450 Other: Voiding Method Indwelling Catheter Indwelling Catheter Weight 84.2 kg ABP, PAP, CO, CI - Last 8 Hours Arterial Blood Pressure 144/61 Arterial Blood Pressure 127/58 GENERAL: Revealed a 65-year-old white male in no distress. HEENT: Pupils are round and equally reacting to light. EOMI. No scleral icterus. No conjunctival pallor. Normocephalic, atraumatic. No pharyngeal erythema. No thyromegaly. Left carotid site seems to be cleaned, dressing is dry, CARDIOVASCULAR: Normal S1 and S2 no S3 gallop.. No murmurs, rubs PULMONARY: Symmetrical chest expansion, intermittent wheezing on forced expiratory maneuver noted. ABDOMEN: Soft, nontender, nondistended, normoactive bowel sounds. No palpable organomegaly. MUSCULOSKELETAL: No joint swelling or deformity. EXTREMITIES: No cyanosis, clubbing, or pedal edema. NEUROLOGICAL: Gross neurological examination did not reveal any focal deficits. SKIN: No rashes. No petechiae Results - Laboratory Findings CBC and BMP: 12/30/20 03:20 12/30/20 03:20 Abnormal lab findings: Abnormal Labs 12/29/20 12/30/20 12/30/20 14:27 03:20 03:20 WBC 10.7 H RBC 3.68 L Hgb 12.0 L Hct 35.4 L Neutrophils # 8.3 H Sodium 135 L BUN 3 L Creatinine 0.49 L Glucose 115 H POC Glucose (mg/dL) 136 H Assessment and Plan Assessment: Impression: Status post left carotid endarterectomy with relatively uneventful postoperative course. Left carotid artery stenosis. Suspect underlying COPD Tobacco dependence syndrome History of seizure disorder. History of Parkinson's disease. History of bipolar disorder. Recommendation: Continue present supportive care measures. We'll recommend the DuoNeb updrafts 4 times a day and when necessary, pending the patient has an updraft machine at home and he has DuoNeb at home. Added Symbicort 160/4.52 puffs twice a day. Resume home meds, Possible discharge planning home today. If cleared by surgery Follow-up with me on outpatient basis for his COPD. Time with Patient: Greater than 30
--- NOTE | 2020-12-30 13:54 | P.DS ---
Providers Date of admission: 12/29/20 07:02 Attending physician: Carmita Tinajero DO Consults: 12/29/20 13:09 Consult Physician Routine Consulting Provider: Alfonzo Lowe Consult Reason/Comments: post carotid endart Do you want consulting provider notified?: Yes 12/29/20 13:11 Consult Physician Routine Consulting Provider: Elvira Moctezuma Reason/Comments: post op carotid Do you want consulting provider notified?: Yes Primary care physician: [facility] Hospital Course: Andrew is a 65-year-old male who presented for left carotid endarterectomy on 12/29/2020. He tolerated the procedure well without any significant issues. He has been recovering well in the ICU. He has maintained appropriate blood pressures. He has remained neurologically intact. He is currently on dual antiplatelet therapy and will need to continue this. He is found to be in satisfactory condition for discharge home. Plan - Discharge Summary Discharge Rx Participant: No New Discharge Prescriptions: No Action Cholecalciferol (Vitamin D3) [Vitamin D3] 50 mcg PO DAILY Multivitamins, Thera [Multivitamin (formulary)] 1 tab PO DAILY Metoprolol Tartrate [Lopressor] 25 mg PO BID #60 tab Atorvastatin [Lipitor] 40 mg PO HS Thiamine [Vitamin B-1] 100 mg PO DAILY #30 tab Cy-Jntxkd-Gmot Unk 1 tab PO DIRECTED Primidone [Mysoline] 1 dose PO DIRECTED Apixaban [Eliquis] 5 mg PO BID risperiDONE [RisperDAL] 3 mg PO HS Discharge Medication List Cholecalciferol (Vitamin D3) [Vitamin D3] 50 mcg PO DAILY 08/25/17 [History] Multivitamins, Thera [Multivitamin (formulary)] 1 tab PO DAILY 03/29/19 [History] Metoprolol Tartrate [Lopressor] 25 mg PO BID #60 tab 04/28/20 [Rx] Atorvastatin [Lipitor] 40 mg PO HS 07/23/20 [History] Thiamine [Vitamin B-1] 100 mg PO DAILY #30 tab 07/24/20 [Rx] Up-Sufalb-Dqrm Unk 1 tab PO DIRECTED 12/18/20 [History] Primidone [Mysoline] 1 dose PO DIRECTED 12/20/20 [History] risperiDONE [RisperDAL] 3 mg PO HS 12/20/20 [History] Apixaban [Eliquis] 5 mg PO BID 12/27/20 [History] Patient Instructions/Handouts: How to Stop Smoking (DC), Carotid Endarterectomy (DC), Abuse of Alcohol (DC) Activity/Diet/Wound Care/Special Instructions: May shower starting tomorrow. No heavy lifting. Resume regular diet Discharge/Stand Alone Forms: AA Meetings Discharge Disposition: HOME SELF-CARE
[2020-12-30] MEDS ORDERED: SYMBICORT 160-4.5 MCG INHALER INHALATION SCH (20:00)
== END 2020-12-30 14:21 | disposition home or self-care (01) | DRG 39 ==
LOC: 2ORMAIN 07:02 → 2SICU 13:16
PROVIDERS: ADMIT Surgery; ATTEND Surgery
PROC: 03CL0ZZ Extirpation of Matter from Left Internal Carotid Artery, Open Approach (ICD-10-PCS; principal; 2020-12-29 09:00)
PROC: 03UL0KZ Supplement Left Internal Carotid Artery with Nonautologous Tissue Substitute, Open Approach (ICD-10-PCS; principal; 2020-12-29 09:00)
DX: I65.22 Occlusion and stenosis of left carotid artery (principal); G20 Parkinson's disease; R16.0 Hepatomegaly, not elsewhere classified; F31.9 Bipolar disorder, unspecified; G40.909 Epilepsy, unspecified, not intractable, without status epilepticus; F20.9 Schizophrenia, unspecified; F10.10 Alcohol abuse, uncomplicated; E78.5 Hyperlipidemia, unspecified; I10 Essential (primary) hypertension; F17.210 Nicotine dependence, cigarettes, uncomplicated; Z79.01 Long term (current) use of anticoagulants; Z79.899 Other long term (current) drug therapy; Z90.49 Acquired absence of other specified parts of digestive tract; Z86.73 Personal history of transient ischemic attack (TIA), and cerebral infarction without residual deficits; Z87.19 Personal history of other diseases of the digestive system; Z87.2 Personal history of diseases of the skin and subcutaneous tissue; Z98.890 Other specified postprocedural states
CPT/HCPCS: 80048; 85025; 86850; 86900; 86901; 88108; 88304; 88311

== ENCOUNTER → 2021-04-03 | Outpatient (CLI) | payer OTHER ==
--- NOTE | 2021-04-04 08:22 | CTL ---
EXAMINATION TYPE: CT Low Dose Lung DATE OF EXAM ORDERED: 04/03/2021 HISTORY: Personal history tobacco use. Lung cancer screening CT DLP: 81.[address] CTDI: 2.1 mGy Automated exposure control for dose reduction was used. SCREENING VISIT: Second visit COMPARISON: CT 12/27/2019 TECHNIQUE: Low dose computed tomography scan was performed through the chest at 1 mm thick sections a nd reconstructed images in multiple planes at 1 mm and [address] DIAGNOSTIC QUALITY: Satisfactory FINDINGS: There is a stable calcified nodule left lower lobe axial image 227 LUNGS: COPD: Severity: Mild Fibrosis: Severity: Mild Lymph nodes: None Other findings: RIGHT PLEURAL SPACE: Effusion: None Calcification: None Thickening: None Pneumothorax: None LEFT PLEURAL SPACE: Effusion: None Calcification: None Thickening: None Pneumothorax: None HEART: Heart Size: Stable Coronary calcification: Mild Pericardial effusion: None OTHER FINDINGS: Upper abdomen: Stable Bony thorax: Old rib fractures noted posterior left chest Supraclavicular region: Unremarkable Other: Thoracic aortic aneurysm is present, ascending aorta measures 4.5 cm similar to prior exam, pr oximal descending aorta 3.3 cm IMPRESSION: Benign CT LUNG RAD AND CT CHEST RECOMMENDATION: Lung-Rad 2 Benign Appearance or Behavior: Continue annual sc reening with LDCT in 12 months. S Modifier (other clinically significant findings): S Thoracic aortic aneurysm
== END | disposition home or self-care (01) ==
LOC: RADCTMAIN 16:28
DX: Z12.2 Encounter for screening for malignant neoplasm of respiratory organs (principal); Z87.891 Personal history of nicotine dependence
CPT/HCPCS: 71271

== ENCOUNTER → 2021-06-06 | Outpatient (CLI) | payer OTHER ==
--- NOTE | 2021-06-07 10:09 | NM ---
EXAMINATION TYPE: NM DatScan Brain SPECT DATE OF EXAM: 06/06/2021 COMPARISON: NONE HISTORY: Tremors TECHNIQUE: 10 drops of Lugol's solution was administered 1 hour prior to injection as a thyroid bloc ileana agent. After the administration of 3.98 mCi I-123 Ioflupane DaTscan. Images obtained 3 hours p ost injection. SPECT images of the brain were acquired with axial and coronal reconstructions. FINDINGS: The axial SPECT images demonstrate normal background activity. Accounting for head tilt, t here appears to be slight asymmetrically blunted comma-shaped appearance of the left corpus striatum. IMPRESSION: Slightly blunted striatal activity on the left may indicate early changes of idiopathic P arkinson's disease or Parkinsonian syndrome.
== END | disposition home or self-care (01) ==
LOC: RADNMMAIN 10:36
PROVIDERS: ATTEND Psychiatry & Neurology Pain Medicine
DX: G25.0 Essential tremor (principal)
CPT/HCPCS: 78803; A9584

== ENCOUNTER 2021-12-04 15:55 | Emergency (ER) | payer OTHER ==
[2021-12-04 16:12] VITALS: RESP 16; TEMP 97.8
[2021-12-04 17:12] LABS: Basophils % (A) 1 %; Eosinophils # (A) 0.1 k/uL (0-0.7); Eosinophils % (A) 2 %; HCT 39.6 % (39.0-53.0); HGB 12.9 gm/dL (13.0-17.5); Lymphocytes # (A) 0.7 k/uL (1.0-4.8); Lymphocytes % (A) 14 %; MCH 33.1 pg (25.0-35.0); MCHC 32.6 g/dL (31.0-37.0); MCV 101.5 fL (80.0-100.0); Macrocytosis Slight; Mean Platelet Volume 8.6; Monocytes # (A) 0.4 k/uL (0-1.0); Monocytes % (A) 8 %; Neutrophils % (A) 75 %; Platelet Count 223 k/uL (150-450); RDW 13.7 % (11.5-15.5); WBC 5.3 k/uL (3.8-10.6)
[2021-12-04 17:26] LABS: ALT 33 U/L (4-49); AST 43 U/L (17-59); African American GFR (CKD) >90 (>60 ml/min/1.73 sqM); Albumin 4.5 g/dL (3.5-5.0); Alkaline Phosphatase 84 U/L (38-126); Anion Gap 10 mmol/L; Blood Urea Nitrogen 7 mg/dL (9-20); Calcium 9.4 mg/dL (8.4-10.2); Carbon Dioxide 25 mmol/L (22-30); Chloride 103 mmol/L (98-107); Glucose 137 mg/dL (74-99); Non-African American GFR(CKD) >90 (>60 ml/min/1.73 sqM); Potassium 3.6 mmol/L (3.5-5.1); Sodium 138 mmol/L (137-145); Total Bilirubin 0.3 mg/dL (0.2-1.3)
--- NOTE | 2021-12-04 21:01 | XR ---
EXAMINATION TYPE: XR elbow complete LT DATE OF EXAM: 12/04/2021 8:29 PM INDICATION: Patient age:Male; 66 years old; Reason for study: left elbow bruising, possible fall; COMPARISON: None TECHNIQUE: The left elbow was examined in AP, lateral, and oblique projections. FINDINGS: No evidence of any acute osseous pathology, joint dislocation, or soft tissue swelling is n oted. No evidence of joint effusion is present. Mild degeneration changes of the elbow. Small enthes ophyte changes of the insertion of the triceps. IMPRESSION: 1. No evidence of acute fracture. 2. Mild left elbow osteoarthrosis.
--- NOTE | 2021-12-04 21:02 | XR ---
EXAMINATION TYPE: XR chest 2V DATE OF EXAM: 12/04/2021 8:29 PM COMPARISON: Chest radiographs from 03/29/2019 TECHNIQUE: XR chest 2V Frontal and lateral views of the chest. CLINICAL INDICATION:Male, 66 years old with history of weakness; FINDINGS: Lungs/Pleura: There is no evidence of pleural effusion, focal consolidation, or pneumothorax. Pulmonary vascularity: Unremarkable. Heart/mediastinum: Cardiomediastinal silhouette is unremarkable. Musculoskeletal: No acute osseous pathology. IMPRESSION: No acute cardiopulmonary disease/process.
--- NOTE | 2021-12-04 21:10 | ED ---
General Adult HPI - General Chief complaint: Recheck/Abnormal Lab/Rx Stated complaint: High BP,R elbow pain,Weakness Time Seen by Provider: 12/04/21 19:48 Source: patient, family Mode of arrival: wheelchair Limitations: no limitations - History of Present Illness Initial comments: Patient is a 66-year-old male with a past medical history of Parkinson's disease and hypertension who presents to the emergency department for evaluation of high blood pressure. Patient's daughter is at bedside and helps provide history. She states the physical therapy clinic called because of patient's elevated blood pressure today. Per the patient's daughter patient was sitting before starting any activity and his blood pressure was found to be 160 systolic with heart rate at 110. She does not remember the diastolic number. States the physical therapy clinic recommended patient go to the emergency department. Patient states during this time he felt well. His daughter states patient's blood pressure is typically normal. States he takes Lopressor twice daily. Patient denies fever, chills, chest pain, lightheadedness, dizziness, shortness of breath, upper respiratory symptoms, nausea, vomiting, blood in the stool, blood in the urine, and burning with urination. Patient's daughter is concerned that patient has been more fatigued than normal. Patient admits to alcohol use multiple times a week, mainly beer and sometimes liquor. Patient's daughter also has concern with left elbow bruising. Patient states he does not remember hurting the elbow. He denies elbow pain. - Related Data Home Medications Medication Instructions Recorded Confirmed Multivitamins, Thera [Multivitamin 1 tab PO DAILY 03/29/19 12/04/21 (formulary)] risperiDONE [RisperDAL] 3 mg PO HS 12/20/20 12/04/21 Albuterol Sulfate [Albuterol 2 puff PO RT-Q6H PRN 12/04/21 12/04/21 Sulfate Hfa] Atorvastatin [Lipitor] 10 mg PO HS 12/04/21 12/04/21 Cholecalciferol [Vitamin D3 (25 50 mcg PO DAILY 12/04/21 12/04/21 Mcg = 1000 Iu)] Clopidogrel [Plavix] 75 mg PO DAILY 12/04/21 12/04/21 Donepezil [Aricept] 5 mg PO HS 12/04/21 12/04/21 Fluticasone Propion/Salmeterol 1 puff INHALATION RT-BID 12/04/21 12/04/21 [Fluticasone-Salmeterol 250-50] Metoprolol Tartrate [Lopressor] 50 mg PO BID 12/04/21 12/04/21 Midodrine HCl [ProAmantine] 2.5 mg PO BID 12/04/21 12/04/21 Primidone 50 mg PO BID 12/04/21 12/04/21 Previous Rx's Medication Instructions Recorded Thiamine [Vitamin B-1] 100 mg PO DAILY #30 tab 07/24/20 Allergies Allergy/AdvReac Type Severity Reaction Status Date / Time No Known Allergies Allergy Verified 12/04/21 21:06 Review of Systems ROS Statement: Those systems with pertinent positive or pertinent negative responses have been documented in the HPI. ROS Other: All systems not noted in ROS Statement are negative. 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, Parkinson's, ETOH abuse,enlarged liver History of Any Multi-Drug Resistant Organisms: None Reported Past Surgical History: Appendectomy Additional Past Surgical History / Comment(s): aborted carotid stent, Cyst removal from right wrist Past Anesthesia/Blood Transfusion Reactions: No Reported Reaction Additional Past Anesthesia/Blood Transfusion Reaction / Comment(s): no hx blood transfusion Past Psychological History: Bipolar, Schizophrenia Smoking Status: Current every day smoker Past Alcohol Use History: Abuse, Daily Past Drug Use History: None Reported - Past Family History Father History Unknown: Yes Mother History Unknown: Yes Brother(s) Family Medical History: No Reported History Sister(s) Family Medical History: No Reported History General Exam Limitations: no limitations General appearance: alert, in no apparent distress Head exam: Present: atraumatic, normocephalic, normal inspection Eye exam: Present: normal appearance, PERRL, EOMI. Absent: scleral icterus, conjunctival injection, periorbital swelling Respiratory exam: Present: normal lung sounds bilaterally. Absent: respiratory distress, wheezes, rales, rhonchi, stridor Cardiovascular Exam: Present: regular rate, normal rhythm, normal heart sounds. Absent: systolic murmur, diastolic murmur, rubs, gallop, clicks GI/Abdominal exam: Present: soft, normal bowel sounds. Absent: distended, tenderness, guarding, rebound, rigid Extremities exam: Present: normal inspection, full ROM, normal capillary refill. Absent: tenderness Neurological exam: Present: alert, oriented X3, CN II-XII intact Psychiatric exam: Present: normal affect, normal mood Skin exam: Present: warm, dry, intact, normal color. Absent: rash Course Vital Signs 12/04/21 12/04/21 16:05 21:11 Temperature 97.8 F Pulse Rate 104 H 98 Respiratory 16 16 Rate Blood Pressure 134/70 159/82 O2 Sat by Pulse 93 L 100 Oximetry EKG Findings - EKG Comments: EKG Findings:: EKG taken at 16:52. Sinus rhythm, no ST segment or T-wave abnormalities. Ventricular rate 92. MT interval 151. QRS duration 90. QTC 405 Medical Decision Making - Medical Decision Making This is a 66-year-old male who presents for evaluation of high blood pressure. Thorough history and examination were performed. Patient is well-appearing. Blood pressure is 134/70. Triage pulse is 104 however during my evaluation patient has normal heart rate and rhythm. EKG reveals normal sinus rhythm without ST segment or T-wave abnormalities. Lab oratory studies were obtained and significant for low hemoglobin at 12.9 which is increased from patient's last hemoglobin at 12.0. There is slight macrocytosis. Troponin is within normal limits. I also obtained x-ray of the left elbow which is negative for acute process. Unable to obtain urinalysis. Patient denies burning with urination. Vitals signs continued to remain stable during patient's stay. Results discussed with patient and his daughter. Patient and his daughter informed that fatigue could be due to anemia. Patient counseled that his anemia may be due to drinking. He was counseled on alcohol cessation. Patient to follow-up with his primary care provider regarding his symptoms and low hemoglobin. Return parameters discussed. Patient verbalizes understanding and is agreeable to this plan. Dr. Sánchez is my attending. - Lab Data Result diagrams: 12/04/21 16:24 12/04/21 16:24 Lab Results 12/04/21 12/04/21 12/04/21 Range/Units 16:24 16:24 16:24 WBC 5.3 (3.8-10.6) k/uL RBC 3.90 L (4.30-5.90) m/uL Hgb 12.9 L (13.0-17.5) gm/dL Hct 39.6 (39.0-53.0) % MCV 101.5 H (80.0-100.0) fL MCH 33.1 (25.0-35.0) pg MCHC 32.6 (31.0-37.0) g/dL RDW 13.7 (11.5-15.5) % Plt Count 223 (150-450) k/uL MPV 8.6 Neutrophils % 75 % Lymphocytes % 14 % Monocytes % 8 % Eosinophils % 2 % Basophils % 1 % Neutrophils # 4.0 (1.3-7.7) k/uL Lymphocytes # 0.7 L (1.0-4.8) k/uL Monocytes # 0.4 (0-1.0) k/uL Eosinophils # 0.1 (0-0.7) k/uL Basophils # 0.0 (0-0.2) k/uL Macrocytosis Slight Sodium 138 (137-145) mmol/L Potassium 3.6 (3.5-5.1) mmol/L Chloride 103 (98-107) mmol/L Carbon Dioxide 25 (22-30) mmol/L Anion Gap 10 mmol/L BUN 7 L (9-20) mg/dL Creatinine 0.61 L (0.66-1.25) mg/dL Est GFR (CKD-EPI)AfAm >90 (>60 ml/min/1.73 sqM) Est GFR (CKD-EPI)NonAf >90 (>60 ml/min/1.73 sqM) Glucose 137 H (74-99) mg/dL Calcium 9.4 (8.4-10.2) mg/dL Total Bilirubin 0.3 (0.2-1.3) mg/dL AST 43 (17-59) U/L ALT 33 (4-49) U/L Alkaline Phosphatase 84 (38-126) U/L Troponin I <0.012 (0.000-0.034) ng/mL Total Protein 7.0 (6.3-8.2) g/dL Albumin 4.5 (3.5-5.0) g/dL Coronavirus (PCR) (Not Detectd) 12/04/21 Range/Units 20:13 WBC (3.8-10.6) k/uL RBC (4.30-5.90) m/uL Hgb (13.0-17.5) gm/dL Hct (39.0-53.0) % MCV (80.0-100.0) fL MCH (25.0-35.0) pg MCHC (31.0-37.0) g/dL RDW (11.5-15.5) % Plt Count (150-450) k/uL MPV Neutrophils % % Lymphocytes % % Monocytes % % Eosinophils % % Basophils % % Neutrophils # (1.3-7.7) k/uL Lymphocytes # (1.0-4.8) k/uL Monocytes # (0-1.0) k/uL Eosinophils # (0-0.7) k/uL Basophils # (0-0.2) k/uL Macrocytosis Sodium (137-145) mmol/L Potassium (3.5-5.1) mmol/L Chloride (98-107) mmol/L Carbon Dioxide (22-30) mmol/L Anion Gap mmol/L BUN (9-20) mg/dL Creatinine (0.66-1.25) mg/dL Est GFR (CKD-EPI)AfAm (>60 ml/min/1.73 sqM) Est GFR (CKD-EPI)NonAf (>60 ml/min/1.73 sqM) Glucose (74-99) mg/dL Calcium (8.4-10.2) mg/dL Total Bilirubin (0.2-1.3) mg/dL AST (17-59) U/L ALT (4-49) U/L Alkaline Phosphatase (38-126) U/L Troponin I (0.000-0.034) ng/mL Total Protein (6.3-8.2) g/dL Albumin (3.5-5.0) g/dL Coronavirus (PCR) Not Detected (Not Detectd) Disposition Clinical Impression: Weakness, High blood pressure, Anemia Disposition: HOME SELF-CARE Condition: Good Additional Instructions: Please follow up with the primary care provider regarding symptoms and low hemoglobin. Continue to take your blood pressure medication as directed. Return to the emergency department if you experience new, concerning, or wors ening symptoms. Is patient prescribed a controlled substance at d/c from ED?: No Referrals: [facility],Clinic [Primary Care Provider] - 1-2 days Time of Disposition: 21:10
[2021-12-04 21:42] VITALS: BP 159/82; PULSE 98
== END 2021-12-04 21:44 | disposition home or self-care (01) ==
LOC: EC 15:55
DX: D64.9 Anemia, unspecified (principal); G20 Parkinson's disease; E78.5 Hyperlipidemia, unspecified; I10 Essential (primary) hypertension; F17.200 Nicotine dependence, unspecified, uncomplicated
CPT/HCPCS: 36415; 71046; 80053; 84484; 85025; 87635; 93005

== ENCOUNTER 2022-01-29 08:14 | Day surgery (SDC) | payer OTHER ==
[2022-01-25 14:58] VITALS: BMI 23.3
[2022-01-29] MEDS ORDERED: SODIUM CHLORIDE 0.9% 500 ML 500 ML IV ONE (08:22)
[2022-01-29] MEDS ORDERED: fentaNYL (PF) 50 MCG/ML 2 ML AMP ONE (08:44)
[2022-01-29] MEDS ORDERED: BENZOCAINE SPRAY 1 CAN TOPICAL ONE (08:52)
[2022-01-29] MEDS ORDERED: fentaNYL (PF) 50 MCG/ML 2 ML AMP IV ONE (09:03)
[2022-01-29] MEDS ORDERED: MIDAZOLAM 2 MG/2 ML VIAL IV ONE (09:03)
[2022-01-29 11:04] VITALS: RESP 16
[2022-01-29 11:05] VITALS: BP 137/76; PULSE 60
--- NOTE | 2022-02-04 08:34 | ECHOT ---
TRANSESOPHAGEAL ECHOCARDIOGRAM INDICATION: Recurrent TIA. PROCEDURE NOTE: After obtaining informed consent, transesophageal echocardiogram was performed in left lateral position using an Omni plane probe. Local and IV sedation were obtained using Versed and fentanyl. Total sedation time was 10 minutes. The patient tolerated the procedure well without any obvious immediate complications. FINDINGS: 1. There is no intracardiac thrombus within the left atrial appendage, left atrium, right atrium, and right ventricle. 2. Left ventricle has normal size and systolic function. 3. Interatrial septum, there is no evidence of [id number] shunt by color-flow Doppler or [id number] shunt by agitated saline contrast study. 4. Left atrium appears mildly enlarged. 5. Aortic valve is a 3-leaflet valve. There is no evidence of aortic stenosis. There is trace aortic regurgitation. 6. Mitral valve shows trace mitral regurgitation. 7. Tricuspid valve appears normal. 8. Aortic root measures within normal limits. CONCLUSIONS: No intracardiac source of thromboembolic phenomenon. MMODL / IJN: [id number] /
== END 2022-01-29 10:49 | disposition home or self-care (01) ==
LOC: CATHCVL 08:14
PROVIDERS: ATTEND Internal Medicine Cardiovascular Disease
DX: I08.0 Rheumatic disorders of both mitral and aortic valves (principal); I65.23 Occlusion and stenosis of bilateral carotid arteries; J44.9 Chronic obstructive pulmonary disease, unspecified; Z86.73 Personal history of transient ischemic attack (TIA), and cerebral infarction without residual deficits; E78.2 Mixed hyperlipidemia; F17.210 Nicotine dependence, cigarettes, uncomplicated; Z82.49 Family history of ischemic heart disease and other diseases of the circulatory system; Z90.49 Acquired absence of other specified parts of digestive tract; Z79.02 Long term (current) use of antithrombotics/antiplatelets; Z79.82 Long term (current) use of aspirin; Z79.899 Other long term (current) drug therapy
CPT/HCPCS: 93312; 93320; 93325; J2250; J3010

== ENCOUNTER 2022-04-23 17:50 | Emergency (ER) | payer OTHER ==
[2022-04-23 18:07] VITALS: RESP 18; TEMP 98
--- NOTE | 2022-04-23 18:49 | XR ---
EXAMINATION TYPE: XR humerus RT DATE OF EXAM: 04/23/2022 6:26 PM INDICATION: Patient age:Male; 67 years old; Reason for study: fall; PHH. COMPARISON: None TECHNIQUE: The right humerus was examined in frontal and lateral projections. FINDINGS: Spiral fracture through the distal diaphysis region of the right humerus. There is a 1.2 cm displacem ent with anterior angulation. Soft tissues grossly intact. Visualized portions of the chest are unrem arkable. No additional fractures. IMPRESSION: Spiral fracture through the distal diaphysis of the right humerus with anterior angulation and displa cement.
--- NOTE | 2022-04-23 18:55 | XR ---
EXAMINATION TYPE: XR chest 1V DATE OF EXAM: 04/23/2022 6:26 PM COMPARISON: Chest radiographs from 12/04/2021 TECHNIQUE: XR chest 1V Portable AP radiograph of the chest. CLINICAL INDICATION:Male, 67 years old with history of fall; FINDINGS: Lungs/Pleura: There is no evidence of pleural effusion, focal consolidation, or pneumothorax. Pulmonary vascularity: Unremarkable. Heart/mediastinum: Cardiomediastinal silhouette is unremarkable. Musculoskeletal: No acute osseous pathology. IMPRESSION: No acute cardiopulmonary disease/process.
--- NOTE | 2022-04-23 19:03 | ED ---
Fall HPI - General Chief Complaint: Fall Stated Complaint: fall Time Seen by Provider: 04/23/22 17:56 Source: patient, EMS, RN notes reviewed Mode of arrival: EMS - History of Present Illness Initial Comments: Patient is a 67-year-old male presenting to the emergency room via EMS after being found by his friend on the floor in the bathroom. It is believed that he was on the floor in the bathroom for a few hours. He reports that he was standing in the bathroom and fell hitting his arm on the countertop in the bathroom. He is unable to identify any aggravating factors prior to the fall in the bathroom; he denies tripping or stumbling, dizziness or syncopal event. He denies any dizziness, loss of consciousness, or head trauma however he does have a past medical history significant for alcohol abuse, TIA, and alcohol withdrawal seizures with poor historian status. He reports drinking 3 -24 ounce beers prior to the fall. In addition to his TIA Parkinson's and EtOH history he has a past medical history significant for hypertension hyperlipidemia and COPD. - Related Data Home Medications Medication Instructions Recorded Confirmed risperiDONE [RisperDAL] 3 mg PO HS 12/20/20 01/29/22 Atorvastatin [Lipitor] 10 mg PO HS 12/04/21 01/29/22 Clopidogrel [Plavix] 75 mg PO DAILY 12/04/21 01/29/22 Metoprolol Tartrate [Lopressor] 50 mg PO BID 12/04/21 01/29/22 Midodrine HCl [ProAmantine] 2.5 mg PO BID 12/04/21 01/29/22 Aspirin [Adult Low Dose Aspirin EC] 81 mg PO DAILY 01/25/22 01/29/22 Previous Rx's Medication Instructions Recorded Thiamine [Vitamin B-1] 100 mg PO DAILY #30 tab 07/24/20 Allergies Allergy/AdvReac Type Severity Reaction Status Date / Time No Known Allergies Allergy Verified 01/29/22 08:29 Review of Systems ROS Statement: Those systems with pertinent positive or pertinent negative responses have been documented in the HPI. ROS Other: All systems not noted in ROS Statement are negative. Past Medical History Past Medical History: COPD, CVA/TIA, Hyperlipidemia, Hypertension, Osteoarthritis (OA), Seizure Disorder Additional Past Medical History / Comment(s): Parkinson's, ETOH abuse, enlarged liver History of Any Multi-Drug Resistant Organisms: None Reported Past Surgical History: Appendectomy Additional Past Surgical History / Comment(s): aborted carotid stent surgery , Cyst removal from right wrist, CAROTID ARTERY SURGERY Past Anesthesia/Blood Transfusion Reactions: No Reported Reaction Additional Past Anesthesia/Blood Transfusion Reaction / Comment(s): no hx blood transfusion Smoking Status: Current every day smoker - Past Family History Father History Unknown: Yes Mother History Unknown: Yes Family Medical History: Cancer Additional Family Medical History / Comment(s): colon cancer Brother(s) Family Medical History: No Reported History Sister(s) Family Medical History: No Reported History General Exam General appearance: alert, in no apparent distress, appears intoxicated Head exam: Present: atraumatic, normocephalic, normal inspection ENT exam: Present: normal exam, mucous membranes moist Neck exam: Present: normal inspection Respiratory exam: Present: normal lung sounds bilaterally. Absent: respiratory distress, wheezes, rales, rhonchi, stridor Cardiovascular Exam: Present: regular rate, normal rhythm, normal heart sounds. Absent: systolic murmur, diastolic murmur, rubs, gallop, clicks GI/Abdominal exam: Present: normal bowel sounds, other (Angular bruise just below the right rib angle). Absent: soft (Slightly firm not rigid), distended, guarding, rebound, rigid Rectal exam: Present: deferred Right Upper Arm exam: Present: tenderness, swelling, ecchymosis, deformity, dislocation, other (Puncture wounds 3 largest approximately 1 cm in diameter irregular shape). Absent: full ROM Vascular: Present: radial pulse (+2) Back exam: Present: normal inspection Neurological exam: Present: alert, CN II-XII intact, other (Poor historian baseline) Psychiatric exam: Present: flat affect Skin exam: Present: other (Ecchymosis right upper extremity ecchymosis abdominal wall near uppper liver border.) Course Vital Signs 04/23/22 04/23/22 18:01 19:03 Temperature 98 F Pulse Rate 72 74 Respiratory 18 18 Rate Blood Pressure 110/96 100/60 O2 Sat by Pulse 92 L 94 L Oximetry - Consultations Consultation #1: Spoke with Dr. Mehrdad Juarez on-call orthopedic surgeon regarding the open fracture to right humerus. Was advised due to open fracture transferred to alternative facility advised. Time: 19:10 Consultation #2: Case discussed with Dr. Dr. Carroll at [facility] on-call for trauma or throat. He is requesting a repeat reduction x-ray will obtain and is accepting of transfer. Will arrange transport to [facility] in stable condition. Will forward all diagnostic imaging completed to [facility]. Time: 19:35 Procedures - Orthopedic Splinting/Casting Injury #1 Side: right Upper Extremity Injury Location: long arm Upper Extremity Immobilizer: posterior splint, Josue wrap Medical Decision Making - Medical Decision Making 67-year-old male presenting to the emergency room via EMS for a fall with obvious deformity fracture to the right humerus with bleeding noted. Arnulfo to the abdomen as well and fall while on blood thinners along with alcohol in toxication. Exam reveals alert and oriented times 3 but poor historian with obvious intoxication denying pain. Will maintain EMS dressing to right upper arm until after x-rays. Will obtain x-ray of the right humerus as well as chest and ribs. Will obtain CT of the abdomen and pelvis along with CT of the brain and cervical spine. Will obtain labs of CBC, CMP, PT INR, type and cross along with alcohol level. We will give 2 g of Ancef as patient has an open fracture to the right humerus along with IV fluid bolus 1 L. X-ray of the right humerus image interpreted by me showing displaced fracture of the right humerus. Dressing removed revealing free puncture-like wounds the largest approximately 1 cm in diameter and irregularly shaped. No obvious bone trip protrusion. Right humerus fracture gently reduce slightly and posterior splint applied by myself along with Dr. Olsen; tolerated well. +2 radial pulse. He and post application. Unchanged chronic numbness and tingling to right hand. CT of the brain and cervical spine image interpreted by me showing no evidence of intracranial process including bleed, mass or shift; no cervical spine fracture or dislocation. CT abdomen and pelvis without contrast image interpreted by me showing no free fluid in the abdomen and no evidence of rib f racture. Chest x-ray image interpreted by me displays no consolidation or infiltration. Consults as documented spoke with local trauma orthopedist credit and collections representative Dr. Juarez to advise transfer patient to another facility for treatment of open humerus fracture. Spoke with trauma surgeon at [facility] who is accepting of transfer admission to trauma surgery as and ERT ER transfer. Requesting repeat i maging of humerus after splinting and reduction. X-ray of the right humerus interpreted by me after reduction shows persistent right humerus fracture with angulation and displacement of displacement has reduced. Will transfer patient to [facility] via EMS in stable condition with splint intact. Family at bedside and plan of care discussed with patient and family. Case discussed with Dr. Olsen. - Lab Data Result diagrams: 04/23/22 19:00 04/23/22 19:00 Lab Results 04/23/22 04/23/22 04/23/22 Range/Units 19:00 19:00 19:00 WBC 16.8 H (3.8-10.6) k/uL RBC 3.48 L (4.30-5.90) m/uL Hgb 11.5 L (13.0-17.5) gm/dL Hct 33.1 L (39.0-53.0) % MCV 95.1 (80.0-100.0) fL MCH 33.1 (25.0-35.0) pg MCHC 34.8 (31.0-37.0) g/dL RDW 12.7 (11.5-15.5) % Plt Count 215 (150-450) k/uL MPV 9.2 Neutrophils % 91 % Lymphocytes % 3 % Monocytes % 5 % Eosinophils % 0 % Basophils % 0 % Neutrophils # 15.3 H (1.3-7.7) k/uL Lymphocytes # 0.6 L (1.0-4.8) k/uL Monocytes # 0.8 (0-1.0) k/uL Eosinophils # 0.0 (0-0.7) k/uL Basophils # 0.0 (0-0.2) k/uL PT 9.7 (9.0-12.0) sec INR 0.9 (<1.2) Sodium 129 L (137-145) mmol/L Potassium 4.3 (3.5-5.1) mmol/L Chloride 97 L (98-107) mmol/L Carbon Dioxide 19 L (22-30) mmol/L Anion Gap 13 mmol/L BUN 8 L (9-20) mg/dL Creatinine 0.48 L (0.66-1.25) mg/dL Est GFR (CKD-EPI)AfAm >90 (>60 ml/min/1.73 sqM) Est GFR (CKD-EPI)NonAf >90 (>60 ml/min/1.73 sqM) Glucose 109 H (74-99) mg/dL Calcium 8.5 (8.4-10.2) mg/dL Total Bilirubin 0.9 (0.2-1.3) mg/dL AST 59 (17-59) U/L ALT 40 (4-49) U/L Alkaline Phosphatase 98 (38-126) U/L Total Protein 5.9 L (6.3-8.2) g/dL Albumin 3.9 (3.5-5.0) g/dL Serum Alcohol 23 mg/dL Blood Type Blood Type Recheck Bld Type Recheck Status Antibody Screen Spec Expiration Date 04/23/22 Range/Units 19:00 WBC (3.8-10.6) k/uL RBC (4.30-5.90) m/uL Hgb (13.0-17.5) gm/dL Hct (39.0-53.0) % MCV (80.0-100.0) fL MCH (25.0-35.0) pg MCHC (31.0-37.0) g/dL RDW (11.5-15.5) % Plt Count (150-450) k/uL MPV Neutrophils % % Lymphocytes % % Monocytes % % Eosinophils % % Basophils % % Neutrophils # (1.3-7.7) k/uL Lymphocytes # (1.0-4.8) k/uL Monocytes # (0-1.0) k/uL Eosinophils # (0-0.7) k/uL Basophils # (0-0.2) k/uL PT (9.0-12.0) sec INR (<1.2) Sodium (137-145) mmol/L Potassium (3.5-5.1) mmol/L Chloride (98-107) mmol/L Carbon Dioxide (22-30) mmol/L Anion Gap mmol/L BUN (9-20) mg/dL Creatinine (0.66-1.25) mg/dL Est GFR (CKD-EPI)AfAm (>60 ml/min/1.73 sqM) Est GFR (CKD-EPI)NonAf (>60 ml/min/1.73 sqM) Glucose (74-99) mg/dL Calcium (8.4-10.2) mg/dL Total Bilirubin (0.2-1.3) mg/dL AST (17-59) U/L ALT (4-49) U/L Alkaline Phosphatase (38-126) U/L Total Protein (6.3-8.2) g/dL Albumin (3.5-5.0) g/dL Serum Alcohol mg/dL Blood Type O Positive Blood Type Recheck O Pos Bld Type Recheck Status No Antibody Screen NEGATIVE Spec Expiration Date 04/26/20222299 - Radiology Data Radiology results: report reviewed, image reviewed X-ray of the right humerus impression by radiologist spiral fracture through the distal diaphysis of the right humerus with anterior angulation and displacement. CT of brain and cervical spine without contrast interpretation by radiologist impression: No acute intracranial process. Right posterior scalp edema. No evidence of cervical spine fracture. Moderate multilevel degenerative disc disease. Bilateral mastoid air cell effusions with right middle ear effusion Chest x-ray one view impression by radiologist no acute cardiopulmonary disease/process. Post reduction x-ray right humerus resume radiologist persistent distal right diaphysis fracture with spiral orientation and displacement. Disposition Clinical Impression: Fall, Fracture, humerus, distal, open Disposition: OTHER INSTITUTION NOT DEFINED Condition: Fair Is patient prescribed a controlled substance at d/c from ED?: No Referrals: [facility],Clinic [Primary Care Provider] - 1-2 days Time of Disposition: 20:25 - Out of Hospital Transfer - Req. Specs Out of Hospital Transfer - Requested Specifics: Other Emergency Center ([facility])
[2022-04-23 19:04] VITALS: BP 100/60; PULSE 74
[2022-04-23] MEDS ORDERED: MORPHINE SULFATE 4 MG/ML SYRINGE IVP STA (19:04)
[2022-04-23] MEDS ORDERED: SODIUM CHLORIDE 0.9% 1,000 ML IV STA (19:04)
--- NOTE | 2022-04-23 19:06 | CT ---
EXAMINATION TYPE: CT brain cspine wo con CT DLP: 2229.6 mGycm, Automated exposure control for dose reduction was used. DATE OF EXAM: 04/23/2022 6:49 PM COMPARISON: 07/23/2020 CLINICAL INDICATION:Male, 67 years old with history of fall; TECHNIQUE: Brain: Multiple axial CT images of the brain were obtained without IV contrast. Cspine: Axial CT images from the skull base to the inferior aspect of T2 we obtained without intraven ous contrast. Coronal and sagittal reformatted images were also reviewed. FINDINGS: Brain: Extra-axial spaces: No abnormal extra-axial fluid collections. Ventricular system: Within normal limits Cerebral parenchyma: No acute intraparenchymal hemorrhage or mass effect. The hsu-white junction is well differentiated. Cerebellum: Unremarkable. Mass effect: No evidence of midline shift. Intracranial vasculature: Atherosclerotic calcifications of the intracranial vessels. Soft tissues: Right posterior scalp fat stranding/edema. Calvarium/osseous structures: No depressed skull fracture. Periodontal disease most pronounced in the right. Paranasal sinuses and mastoid air cells: Thickening most pronounced in the maxillary sinuses right gr eater than left. The mastoid air cells are opacified bilaterally. There is right middle ear effusion. Visualized orbits: Orbital contents are intact. Cervical spine: Fracture: None. Osseous structures: Multilevel degenerative disc disease changes with endplate spurring and disc oste ophyte complex's. Vertebral alignment: Within normal limits. Spinal canal/Neural Foramina: No evidence of significant spinal canal narrowing. Facet joint uncovert ebral joint arthropathy scattered throughout the cervical spine with varying degrees of neural forami nal stenosis. Neck soft tissues: Prevertebral soft tissues are within normal limits. Other: The airway is patent. The lung apices are clear. IMPRESSION: 1. No acute intracranial process. 2. Right posterior scalp edema. 3. No evidence of cervical spine fracture. 4. Moderate multilevel degenerative disc disease. 5. Bilateral mastoid air cell effusions with right middle ear effusion.
[2022-04-23 19:24] LABS: Basophils % (A) 0 %; Eosinophils % (A) 0 %; HCT 33.1 % (39.0-53.0); HGB 11.5 gm/dL (13.0-17.5); Lymphocytes # (A) 0.6 k/uL (1.0-4.8); Lymphocytes % (A) 3 %; MCH 33.1 pg (25.0-35.0); MCHC 34.8 g/dL (31.0-37.0); MCV 95.1 fL (80.0-100.0); Mean Platelet Volume 9.2; Monocytes # (A) 0.8 k/uL (0-1.0); Monocytes % (A) 5 %; Neutrophils # (A) 15.3 k/uL (1.3-7.7); Neutrophils % (A) 91 %; Platelet Count 215 k/uL (150-450); RBC 3.48 m/uL (4.30-5.90); RDW 12.7 % (11.5-15.5); WBC 16.8 k/uL (3.8-10.6)
--- NOTE | 2022-04-23 19:42 | CT ---
EXAMINATION TYPE: CT abdomen pelvis wo con CT DLP: 2229.6 mGycm, Automated exposure control for dose reduction was used. DATE OF EXAM: 04/23/2022 6:49 PM COMPARISON: CT abdomen pelvis most recent from 10/03/2020 CLINICAL INDICATION:Male, 67 years old with history of fall; TECHNIQUE: Axial CT of the abdomen and pelvis. Sagittal and coronal reformats were created on a [employer] workstation. Contrast used: None Oral contrast used: without Oral Contrast FINDINGS: LOWER CHEST: Bilateral gynecomastia changes. ABDOMEN LIVER: Diffusely hypoattenuating parenchyma. GALLBLADDER AND BILE DUCTS: Unremarkable. PANCREAS: Unremarkable. SPLEEN: Unremarkable. ADRENAL GLANDS: Unremarkable. KIDNEYS AND URETERS: No evidence of hydronephrosis or renal calculus. Right renal cyst. Right periren al/parapelvic cyst not significantly changed from prior PELVIS BLADDER: Unremarkable REPRODUCTIVE: Unremarkable. ABDOMEN & PELVIS STOMACH AND BOWEL: No evidence of bowel obstruction. Few scattered clonic diverticula present. PERITONEUM: No evidence of pneumoperitoneum or free fluid. VASCULATURE: No evidence of aortic aneurysm. Atherosclerosis of the arterial vasculature. MUSCULOSKELETAL: No acute osseous abnormalities, multiple remote left-sided rib fractures. Multilevel disc degeneration changes throughout the spine with findings suspicious for epidural lipomatosis wit h increased fat in the spinal canal most proximal and the lumbar spine. LYMPH NODES: No gross evidence for lymphadenopathy. SOFT TISSUE/ABDOMINAL WALL: Unremarkable IMPRESSION: 1. No evidence for acute intra-abdominal process. No evidence of acute fracture. Multiple remote lef t-sided rib fractures. 2. Hepatic steatosis 3. Right renal parapelvic cysts unchanged from prior. 4. Colonic diverticulosis. 5. Epidural lipomatosis which can be further evaluated MRI lumbar spine as clinically warranted.
[2022-04-23 19:46] LABS: ALT 40 U/L (4-49); AST 59 U/L (17-59); African American GFR (CKD) >90 (>60 ml/min/1.73 sqM); Albumin 3.9 g/dL (3.5-5.0); Alcohol 23 mg/dL; Alkaline Phosphatase 98 U/L (38-126); Anion Gap 13 mmol/L; Blood Urea Nitrogen 8 mg/dL (9-20); Calcium 8.5 mg/dL (8.4-10.2); Carbon Dioxide 19 mmol/L (22-30); Chloride 97 mmol/L (98-107); Glucose 109 mg/dL (74-99); Non-African American GFR(CKD) >90 (>60 ml/min/1.73 sqM); Potassium 4.3 mmol/L (3.5-5.1); Sodium 129 mmol/L (137-145); Total Bilirubin 0.9 mg/dL (0.2-1.3); Total Protein 5.9 g/dL (6.3-8.2)
[2022-04-23 20:07] LABS: INR 0.9 (<1.2); Prothrombin Time 9.7 sec (9.0-12.0)
--- NOTE | 2022-04-23 21:09 | XR ---
EXAMINATION TYPE: XR humerus RT DATE OF EXAM: 04/23/2022 8:12 PM INDICATION: Patient age:Male; 67 years old; Reason for study: post reduction; H. COMPARISON: Same day radiograph. TECHNIQUE: The right humerus was examined in frontal and lateral projections. FINDINGS: Persistent fracture with displacement of the distal right diaphysis with a spiral orientati on. Soft tissues grossly unremarkable. Chest is grossly unremarkable. No additional fractures. IMPRESSION: Persistent distal right radius fracture with anterior angulation and displacement.
== END 2022-04-23 20:15 | disposition other institution (70) ==
LOC: EC 17:50
DX: S42.401B Unspecified fracture of lower end of right humerus, initial encounter for open fracture (principal); J44.9 Chronic obstructive pulmonary disease, unspecified; I10 Essential (primary) hypertension; E78.5 Hyperlipidemia, unspecified; F17.200 Nicotine dependence, unspecified, uncomplicated; Z79.02 Long term (current) use of antithrombotics/antiplatelets; Z79.82 Long term (current) use of aspirin; Z79.899 Other long term (current) drug therapy; W17.89XA Other fall from one level to another, initial encounter; Y92.002 Bathroom of unspecified non-institutional (private) residence as the place of occurrence of the external cause
CPT/HCPCS: 36415; 86900; 86901; 80053; 85025; 85610; 86850; 80320; 73060; 71045; 72125; 70450; 74176; 29105; 99285; 96365; J0690

== ENCOUNTER → 2023-03-20 | Outpatient (CLI) | payer OTHER ==
--- NOTE | 2023-03-20 09:07 | CTL ---
EXAMINATION TYPE: CT Low Dose Lung DATE OF EXAM ORDERED: 03/20/2023 HISTORY: X87.891 Personal hx of tobacco use. Lung cancer screening . Current smoker, 40 pack year his tory. CT DLP: 92.[address] CTDI: 2.5 mGy Automated exposure control for dose reduction was used. SCREENING VISIT: Follow-up COMPARISON: CT low dose lung 04/03/2021, 12/27/2019 TECHNIQUE: Low dose computed tomography scan was performed through the chest at 1 mm thick sections a nd reconstructed images in multiple planes at 1 mm and [address] DIAGNOSTIC QUALITY: Satisfactory FINDINGS: LUNG NODULES: Left lower lobe 3 mm calcified granuloma (series 4, image 220). Few scattered groundgla ss reticular opacities within the left lower lobe. Wedge-shaped masslike consolidation within the rig ht middle lobe measuring up to 7 cm (series 4, image 203). Additional smaller consolidative opacity w ithin the right middle lobe measuring up to 1.6 cm (series 4, image 172). Additional smaller consolid ative opacity along the right major fissure in the right lower lobe measuring up to 1.8 cm (series 4, image 159). LUNGS: COPD: Severity: None Fibrosis: Severity: None Lymph nodes: None Other findings: None RIGHT PLEURAL SPACE: Effusion: Trace Calcification: None Thickening: None Pneumothorax: None LEFT PLEURAL SPACE: Effusion: None Calcification: None Thickening: None Pneumothorax: None HEART: Heart Size: Normal Coronary Calcification: Small Pericardial Effusion: None OTHER FINDINGS: Upper abdomen: None Bony thorax: Remote left-sided rib fractures. Right humerus fixation hardware on the [facility] radiograph . Supraclavicular region: None Other: None IMPRESSION: Wedge-shaped masslike consolidation within the right middle lobe with additional smaller consolidative opacities within the right middle lobe and right lower lobe with a few groundglass reti cular opacities within the left lower lobe. Trace right pleural effusion. Findings are favored to rep resent pneumonia however underlying neoplastic process is not excluded. CT LUNG RAD AND CT CHEST RECOMMENDATION: Lung-Rad 4A Suspicious: Follow-up 3 month LDCT or PET/CT may be used when there is a > 8 mm solid component.
--- NOTE | 2023-03-20 10:36 | XR ---
EXAMINATION TYPE: XR humerus RT DATE OF EXAM: 03/20/2023 10:15 AM INDICATION: Patient age:Male; 68 years old; Reason for study: S42.351D Fx humeral shaft right,closed; [facility]. COMPARISON: Right humerus radiograph 04/23/2022 TECHNIQUE: The right humerus was examined in PA and lateral projections.. FINDINGS: Postsurgical change with fixation plate throughout the right humerus. Transverse screws rosa ntified with fixation plate. 2 of the middle screws are from the fixation plate. Improved a lignment of previously seen fracture of the midshaft of the humerus with no visible fracture line rosa ntified. AC joint arthropathy. The visualized portion of the chest is unremarkable. No new fractures. No dislocation. IMPRESSION: Post fixation changes of previously seen right humeral mid shaft fracture with improved alignment. No fracture line is identified.
== END | disposition home or self-care (01) ==
LOC: RADCTMAIN 08:21
DX: Z12.2 Encounter for screening for malignant neoplasm of respiratory organs (principal); F17.210 Nicotine dependence, cigarettes, uncomplicated; T84.191A Other mechanical complication of internal fixation device of left humerus, initial encounter; J90 Pleural effusion, not elsewhere classified; R91.8 Other nonspecific abnormal finding of lung field
CPT/HCPCS: 71271